=== PATIENT | female | born 1975 | race African-American/Black ===

== ENCOUNTER 2016-11-06 18:08 | Emergency (ER) | payer SELFPAY ==
[~2016-11-06] VITALS: Ht 172.7 cm; Wt 47.7 kg
[~2016-11-06 18:08] MED LIST: LACT PO; POTA10CA PO
[2016-11-06 18:10] VITALS: BP 132/74; PULSE 72; RESP 26; TEMP 98.4; O2SAT 97
[2016-11-06] MEDS ORDERED: SODIUM CHLOR 0.9% 1000 ML INJ 1,000 ML IV SCH (23:30)
[2016-11-06] MEDS ORDERED: SODIUM CHLORIDE 0.9% FLUSH 5 ML FLUSH IVF PRN (23:30)
[2016-11-06 23:46] VITALS: BP 119/67; PULSE 68; RESP 22; O2SAT 100
[2016-11-07] MEDS ORDERED: PROCHLORPERAZINE INJ 10 MG/2 ML VIAL IVS ONE
[2016-11-07] MEDS ORDERED: SODIUM CHLOR 0.9% 1000 ML INJ 1,000 ML IV ONE
[2016-11-07] MEDS ORDERED: MORPHINE SULFATE 8 MG/ML INJ IV PUSH ONE
[2016-11-07 00:14] LABS: AUTOMATED NEUTROPHIL # 11.2 TH/MM3 (1.8-7.7); BASOPHIL % 0.3 % (0.0-2.0); HEMATOCRIT 38.3 % (35.0-46.0); HEMO FLAGS DIFF FINAL; LYMPH % 5.2 % (9.0-44.0); LYMPHOCYTE # 0.6 TH/MM3 (1.0-4.8); MEAN CELL VOLUME 82.4 FL (80.0-100.0); MEAN CORPUSCULAR HEMOGLOBIN 27.3 PG (27.0-34.0); MEAN CORPUSCULAR HGB CONC 33.1 % (32.0-36.0); MONO % 1.6 % (0.0-8.0); NEUT % 92.9 % (16.0-70.0); PLATELET COUNT 346 TH/MM3 (150-450); RED BLOOD COUNT 4.64 MIL/MM3 (4.00-5.30); RED CELL DISTRIBUTION WIDTH 14.4 % (11.6-17.2); WHITE BLOOD COUNT 12.1 TH/MM3 (4.0-11.0)
[2016-11-07 00:28] LABS: ALT (GPT) 23 U/L (10-53); ANION GAP 10 MEQ/L (5-15); AST (GOT) 12 U/L (15-37); BICARBONATE 23.2 MEQ/L (21.0-32.0); BLOOD UREA NITROGEN 11 MG/DL (7-18); CHLORIDE 108 MEQ/L (98-107); GLOMERULAR FILTRATION RATE 140 ML/MIN (>89); POTASSIUM 3.7 MEQ/L (3.5-5.1); SODIUM (NA) 141 MEQ/L (136-145)
[2016-11-07 00:31] LABS: ALKALINE PHOSPHATASE 60 U/L (45-117); TOTAL BILIRUBIN ADULT 0.2 MG/DL (0.2-1.0)
[2016-11-07 02:28] LABS: BACTERIA, URINE RARE /hpf; BLOOD, URINE NEG (NEG); COMMENT (UR) CULT NOT INDICATED; CULTURE IF INDICATED CULT NOT INDICATED; GLUCOSE,URINE NEG (NEG); KETONE, URINE 150 mg/dL (NEG); MUCUS URINE MANY /lpf (OCC); NITRITE,URINE NEG (NEG); PH, URINE 6.5 (5.0-8.5); SQUAMOUS EPITHELIAL CELL URINE 14 /hpf (0-5); URINE COLOR YELLOW (YELLW/STRAW)
[2016-11-07] MEDS ORDERED: ZOFR4TAB3 SL (02:40)
--- NOTE | 2016-11-07 02:40 | PD ---
HPI Chief Complaint: Abdominal Pain Time Seen by Provider: 23:29 Travel History International Travel<30 days: No Contact w/Intl Traveler<30days: No Traveled to known affect area: No History of Present Illness HPI 41-year-old female with generalized abdominal pain. Constant and severe. A few episodes of vomiting and diarrhea have occurred. She denies fever. Onset gradual. She has suffered with the same intermittently for years. She states several of colitis on chronic basis. No VB/VD. PFSH Past Medical History Blood Disorders: No Cancer: No Cardiovascular Problems: No Endocrine: No Gastrointestinal Disorders: Yes (colitis) Gout: Yes Genitourinary: No Immune Disorder: No Musculoskeletal: No Neurologic: No Psychiatric: No Reproductive: No Respiratory: No Influenza Vaccination: No ?: Not LMP: oct 2016 : 0 Para: 0 Past Surgical History Surgical History: No Previous Surgery Social History Alcohol Use: Yes (oc) Tobacco Use: Yes (/2 PPD) Substance Use: Yes (marijuana) Allergies-Medications (Allergen,Severity, Reaction): Coded Allergies: No Known Allergies (Verified , 09/30/16) Reported Meds & Prescriptions Reported Meds & Active Scripts Active No Active Prescriptions or Reported Medications Review of Systems Except as stated in HPI: all other systems reviewed are Neg Physical Exam Narrative GENERAL: 41-year-old female thin somewhat dehydrated SKIN: Warm and dry. HEAD: Atraumatic. Normocephalic. EYES: Pupils equal and round. No scleral icterus. No injection or drainage. ENT: No nasal bleeding or discharge. Mucous membranes pink and moist. NECK: Trachea midline. No JVD. CARDIOVASCULAR: Regular rate and rhythm. No murmur appreciated. RESPIRATORY: No accessory muscle use. Clear to auscultation. Breath sounds equal bilaterally. GASTROINTESTINAL: Abdomen soft, non-tender, nondistended. Hepatic and splenic margins not palpable. MUSCULOSKELETAL: No obvious deformities. No clubbing. No cyanosis. No edema. NEUROLOGICAL: Awake and alert. No obvious cranial nerve deficits. Motor grossly within normal limits. Normal speech. PSYCHIATRIC: Appropriate mood and affect; insight and judgment normal. Data Data Last Documented VS Vital Signs Date Time Temp Pulse Resp B/P Pulse Ox O2 Delivery O2 Flow Rate FiO2 11/06/16 23:46 68 22 119/67 100 Room Air 11/06/16 18:10 98.4 Orders Complete Blood Count With Diff (11/06/16 23:30) Comprehensive Metabolic Panel (11/06/16 23:30) Lipase (11/06/16 23:30) Lactic Acid (11/06/16 23:30) Urinalysis - C+S If Indicated (11/06/16 23:30) Iv Access Insert/Monitor (11/06/16 23:30) Ecg Monitoring (11/06/16 23:30) Oximetry (11/06/16 23:30) Sodium Chlor 0.9% 1000 Ml Inj (Ns 1000 M (11/06/16 23:30) Sodium Chloride 0.9% Flush (Ns Flush) (11/06/16 23:30) Ed Urine Pregnancytest Poc (11/06/16 23:30) Morphine Inj (Morphine Inj) (11/07/16 00:00) Sodium Chlor 0.9% 1000 Ml Inj (Ns 1000 M (11/07/16 00:00) Prochlorperazine Inj (Compazine Inj) (11/07/16 00:00) Labs Laboratory Tests Test 11/06/16 11/07/16 23:55 01:55 White Blood Count 12.1 TH/MM3 Red Blood Count 4.64 MIL/MM3 Hemoglobin 12.7 GM/DL Hematocrit 38.3 % Mean Corpuscular Volume 82.4 FL Mean Corpuscular Hemoglobin 27.3 PG Mean Corpuscular Hemoglobin 33.1 % Concent Red Cell Distribution Width 14.4 % Platelet Count 346 TH/MM3 Mean Platelet Volume 6.7 FL Neutrophils (%) (Auto) 92.9 % Lymphocytes (%) (Auto) 5.2 % Monocytes (%) (Auto) 1.6 % Eosinophils (%) (Auto) 0.0 % Basophils (%) (Auto) 0.3 % Neutrophils # (Auto) 11.2 TH/MM3 Lymphocytes # (Auto) 0.6 TH/MM3 Monocytes # (Auto) 0.2 TH/MM3 Eosinophils # (Auto) 0.0 TH/MM3 Basophils # (Auto) 0.0 TH/MM3 CBC Comment DIFF FINAL Differential Comment Sodium Level 141 MEQ/L Potassium Level 3.7 MEQ/L Chloride Level 108 MEQ/L Carbon Dioxide Level 23.2 MEQ/L Anion Gap 10 MEQ/L Blood Urea Nitrogen 11 MG/DL Creatinine 0.58 MG/DL Estimat Glomerular Filtration 140 ML/MIN Rate Random Glucose 139 MG/DL Lactic Acid Level 2.0 mmol/L Calcium Level 9.5 MG/DL Total Bilirubin 0.2 MG/DL Aspartate Amino Transf 12 U/L (AST/SGOT) Alanine Aminotransferase 23 U/L (ALT/SGPT) Alkaline Phosphatase 60 U/L Total Protein 8.1 GM/DL Albumin 4.3 GM/DL Lipase 67 U/L Urine Color YELLOW Urine Turbidity HAZY Urine pH 6.5 Urine Specific [place] 1.025 Urine Protein 30 mg/dL Urine Glucose (UA) NEG mg/dL Urine Ketones 150 mg/dL Urine Occult Blood NEG Urine Nitrite NEG Urine Bilirubin NEG Urine Urobilinogen 2.0 MG/DL Urine Leukocyte Esterase NEG Urine RBC 7 /hpf Urine WBC 3 /hpf Urine Squamous Epithelial 14 /hpf Cells Urine Bacteria RARE /hpf Urine Mucus MANY /lpf Microscopic Urinalysis Comment CULT NOT INDICATED MDM Medical Decision Making Medical Screen Exam Complete: Yes Emergency Medical Condition: Yes Medical Record Reviewed: Yes Interpretation(s) CBC & BMP Diagram 11/06/16 23:55 LFTs normal Lipase normal UA no UTI LA 2.0 Differential Diagnosis Constipation, Gastritis, Acute Cholecystitis, Biliary Colic, Pancreatitis, DEGROOT , Hepatitis, Bowel Obstruction, Cystitis, Mesenteric Ischemia, AAA, Appendicitis , Renal Stone/Hydronephrosis, GERD, perforated viscous Narrative Course The patient is resting comfortably and feels better, is alert and in no distress. The patients results and examination findings were discussed. The repeat examination is unremarkable and benign. The history, exam, diagnostic testing, and current condition do not suggest any significant pathology to warrant further testing, continued ED treatment, admission, or surgical evaluation at this point. The vital signs have been stable. The patient does not have uncontrollable pain, intractable vomiting, or other significant symptoms. The patient's condition is stable and appropriate for discharge. The patient will pursue further outpatient evaluation with a primary care physician or other designated or consulting physician as indicated in the discharge instructions. The patient expressed understanding and was agreeable with this plan. Diagnosis Primary Impression: Abdominal pain Qualified Code: R10.9 - Abdominal pain, unspecified location Additional Impressions: Colitis Nausea & vomiting Qualified Code: R11.2 - Nausea and vomiting, intractability of vomiting not specified, unspecified vomiting type Dehydration Referrals: Primary Care Physician 2 days Additional Instructions: You have a choice when it comes to health care, and we are glad that you chose [facility]. Hopefully, we have met your expectations on today's visit. You are welcome to return to [facility] at any time, as we are committed to meeting the health care needs of our community. Med/Other Pt SpecificInfo: Prescription(s) given Scripts Ondansetron Odt (Zofran Odt)4 Mg Tab4 Mg SL Q8HR PRN (Nausea/Vomiting) #10 TAB Ref 0 Prov:Jf Rodríguez MD 11/07/16 Disposition: 01 DISCHARGE HOME Condition: Stable Jf Rodríguez MD Nov 07, 2016 02:40
[2016-11-07] MEDS ORDERED: DICY10 PO (02:41)
[2016-11-07 02:53] VITALS: BP 126/64
== END 2016-11-07 02:54 | disposition home or self-care (01) ==
LOC: NEPE 18:08
DX: R10.9 Unspecified abdominal pain (principal); R11.2 Nausea with vomiting, unspecified; K52.9 Noninfective gastroenteritis and colitis, unspecified; F17.210 Nicotine dependence, cigarettes, uncomplicated; E86.0 Dehydration
CPT/HCPCS: 80053; 81001; 83605; 83690; 84703; 85025; 96361; 96374; 96375; 99284; J0780; J2270; J7030

== ENCOUNTER 2016-12-08 17:07 | Emergency (ER) | payer SELFPAY ==
[~2016-12-08] VITALS: Ht 162.6 cm; Wt 50.0 kg
[~2016-12-08 17:07] MED LIST changes: +DICY10 PO; -LACT PO; -POTA10CA PO; +ZOFR4TAB3 SL
[2016-12-08 17:27] VITALS: BP 148/67; PULSE 81; RESP 18; TEMP 98.7; O2SAT 100
[2016-12-08] MEDS ORDERED: SODIUM CHLOR 0.9% 1000 ML INJ 1,000 ML IV SCH (17:29)
[2016-12-08] MEDS ORDERED: SODIUM CHLORIDE 0.9% FLUSH 5 ML FLUSH IVF PRN (17:30)
[2016-12-08] MEDS ORDERED: ONDANSETRON HCL 4 MG/2 ML VIAL IVP ONE (17:30)
[2016-12-08] MEDS ORDERED: MORPHINE SULFATE 4 MG/ML INJ IV PUSH ONE ×2 (17:30→20:00)
--- NOTE | 2016-12-08 17:50 | PD ---
HPI Chief Complaint: GI Complaint Time Seen by Provider: 17:49 Travel History International Travel<30 days: No Contact w/Intl Traveler<30days: No Traveled to known affect area: No History of Present Illness HPI Patient comes in for evaluation of abdominal pain that she awoke with this morning. Patient states she feels like her colitis. Patient is uncertain what kind of colitis she has reports she was first diagnosed back in September. Patient states that she takes probiotics every other day for this. Patient states she began having vomiting and diarrhea that is nonbilious and nonbloody today. Denies any fevers, chest pain, short of breath, vaginal discharge, urinary symptoms, , or back pain. PFSH Past Medical History Blood Disorders: No Cancer: No Cardiovascular Problems: No Endocrine: No Gastrointestinal Disorders: Yes (colitis) Gout: Yes Genitourinary: No Immune Disorder: No Musculoskeletal: No Neurologic: No Psychiatric: No Reproductive: No Respiratory: No Tetanus Vaccination: Unknown Influenza Vaccination: No ?: Not LMP: 11/16/2016 : 0 Para: 0 Past Surgical History Surgical History: No Previous Surgery Social History Alcohol Use: Yes (oc) Tobacco Use: Yes (/2 PPD) Substance Use: Yes (marijuana) Allergies-Medications (Allergen,Severity, Reaction): Coded Allergies: No Known Allergies (Verified , 09/30/16) Reported Meds & Prescriptions Reported Meds & Active Scripts Active Zofran Odt (Ondansetron Odt) 4 Mg Tab 4 Mg SL Q8HR PRN Bentyl (Dicyclomine HCl) 10 Mg Cap 10 Mg PO TID PRN Review of Systems Except as stated in HPI: all other systems reviewed are Neg Physical Exam Narrative GENERAL: Well-developed, well nourished, in no acute distress, and non-ill appearing. SKIN: Warm and dry. HEAD: Atraumatic. Normocephalic. EYES: Pupils equal and round. EOMI. No scleral icterus. No injection or drainage. ENT: No nasal bleeding or discharge. Mucous membranes pink and moist. NECK: Trachea midline. Supple. No nuclear rigidity. CARDIOVASCULAR: Regular rate and rhythm. No murmur appreciated. RESPIRATORY: No accessory muscle use. No respiratory distress. Clear to auscultation. Breath sounds equal bilaterally. GASTROINTESTINAL: Abdomen soft, patient reports tenderness throughout abdomen, nondistended. Hepatic and splenic margins not palpable. Normal bowel sounds 4. No pulsatile mass. MUSCULOSKELETAL: No obvious deformities. No clubbing. No cyanosis. No edema. Full range of motion. NEUROLOGICAL: Awake and alert. No obvious cranial nerve deficits. Motor grossly within normal limits. Normal speech. PSYCHIATRIC: Appropriate mood and affect; insight and judgment normal. Data Data Last Documented VS Vital Signs Date Time Temp Pulse Resp B/P Pulse Ox O2 Delivery O2 Flow Rate FiO2 12/08/16 22:39 87 16 119/78 100 12/08/16 19:44 Room Air 12/08/16 17:27 98.7 Orders Complete Blood Count With Diff (12/08/16 17:29) Comprehensive Metabolic Panel (12/08/16 17:29) Lipase (12/08/16 17:29) Prothrombin Time / Inr (Pt) (12/08/16 17:29) Act Partial Throm Time (Ptt) (12/08/16 17:29) Urinalysis - C+S If Indicated (12/08/16 17:29) Ct Abd/Pel W Iv Contrast(Rout) (12/08/16 17:29) Iv Access Insert/Monitor (12/08/16 17:29) Ecg Monitoring (12/08/16 17:29) Oximetry (12/08/16 17:29) NPO (12/08/16 17:29) Morphine Inj (Morphine Inj) (12/08/16 17:30) Ondansetron Inj (Zofran Inj) (12/08/16 17:30) Sodium Chlor 0.9% 1000 Ml Inj (Ns 1000 M (12/08/16 17:29) Sodium Chloride 0.9% Flush (Ns Flush) (12/08/16 17:30) Electrocardiogram (12/08/16 17:29) Ed Urine Pregnancytest Poc (12/08/16 17:29) Oral Contrast - Adult (12/08/16 17:39) Abdomen, Flat & Upright (12/08/16 ) Diatrizoate Liq ( Gastroview Liq) (12/08/16 19:40) Diatrizoate Liq ( Gastrobird Liq) (12/08/16 19:40) Morphine Inj (Morphine Inj) (12/08/16 20:00) Iohexol 350 Inj (Omnipaque 350 Inj) (12/08/16 21:00) Ondansetron Inj (Zofran Inj) (12/08/16 21:30) Sodium Chlor 0.9% 1000 Ml Inj (Ns 1000 M (12/08/16 21:30) Mandatory Outpatient Referral (12/08/16 21:30) Metoclopramide Inj (Reglan Inj) (12/08/16 21:45) Labs Laboratory Tests Test 12/08/16 12/08/16 17:45 19:05 White Blood Count 12.5 TH/MM3 Red Blood Count 4.45 MIL/MM3 Hemoglobin 12.2 GM/DL Hematocrit 37.3 % Mean Corpuscular Volume 83.7 FL Mean Corpuscular Hemoglobin 27.5 PG Mean Corpuscular Hemoglobin 32.8 % Concent Red Cell Distribution Width 14.4 % Platelet Count 313 TH/MM3 Mean Platelet Volume 7.0 FL Neutrophils (%) (Auto) 89.2 % Lymphocytes (%) (Auto) 8.2 % Monocytes (%) (Auto) 2.1 % Eosinophils (%) (Auto) 0.1 % Basophils (%) (Auto) 0.4 % Neutrophils # (Auto) 11.1 TH/MM3 Lymphocytes # (Auto) 1.0 TH/MM3 Monocytes # (Auto) 0.3 TH/MM3 Eosinophils # (Auto) 0.0 TH/MM3 Basophils # (Auto) 0.0 TH/MM3 CBC Comment DIFF FINAL Differential Comment Prothrombin Time 11.9 SEC Prothromb Time International 1.1 RATIO Ratio Activated Partial 27.1 SEC Thromboplast Time Sodium Level 142 MEQ/L Potassium Level 3.4 MEQ/L Chloride Level 110 MEQ/L Carbon Dioxide Level 21.8 MEQ/L Anion Gap 10 MEQ/L Blood Urea Nitrogen 9 MG/DL Creatinine 0.56 MG/DL Estimat Glomerular Filtration 146 ML/MIN Rate Random Glucose 135 MG/DL Calcium Level 9.0 MG/DL Total Bilirubin 0.3 MG/DL Aspartate Amino Transf 14 U/L (AST/SGOT) Alanine Aminotransferase 18 U/L (ALT/SGPT) Alkaline Phosphatase 55 U/L Total Protein 7.5 GM/DL Albumin 4.3 GM/DL Lipase 77 U/L Urine Color YELLOW Urine Turbidity CLEAR Urine pH 8.5 Urine Specific [place] 1.016 Urine Protein TRACE mg/dL Urine Glucose (UA) 70 mg/dL Urine Ketones 80 mg/dL Urine Occult Blood NEG Urine Nitrite NEG Urine Bilirubin NEG Urine Urobilinogen LESS THAN 2.0 MG/DL Urine Leukocyte Esterase TRACE Urine RBC LESS THAN 1 /hpf Urine WBC 2 /hpf Urine Squamous Epithelial 5 /hpf Cells Urine Bacteria OCC /hpf Urine Mucus FEW /lpf Microscopic Urinalysis Comment CULT NOT INDICATED MDM Medical Decision Making Medical Screen Exam Complete: Yes Emergency Medical Condition: Yes Interpretation(s) EKG reviewed by Dr. Young. Shows sinus rhythm with a ventricular rate of 66. No STEMI. Differential Diagnosis Colitis, appendicitis, UTI, gastroenteritis, diverticulitis, dehydration, other Narrative Course The patient presented with abdominal pain vomiting and diarrhea.. The patient appeared comfortable, hydrated and the abdominal exam was unremarkable and minimal to nontender to me, and without defined focal tenderness. Laboratory and radiographic evaluation revealed no significant abnormality. There was no evidence of an acute, surgical abdomen at this time. There was no clinical or radiological evidence to support bowel obstruction, cholecystitis/cholelithiasis , pancreatitis, perforation of gastric ulcer, colitis, diverticulitis, bacterial peritonitis, obstruction, volvulus, early appendicitis, or hernial incarceration or strangulation at this time. There was no evidence to support vascular pathology such as AAA, mesenteric ischemia, nor significant GIB. There was also no clinical evidence by history, exam or risk factors to suggest atypical presentation of cardiac disease such as ACS, AMI or atypical angina. No evidence to suggest genitourinary etiology as well. During the course of the ED visit the patient was given IVF, the patient noted improvement. The patient was able to tolerate fluids at discharge. Clinical picture was discussed with the patient, as well as plan of care. The patient was instructed to follow up with GI. Abdominal pain warnings were discussed with the patient. The patient is to return if worsens, pain worsens or changes, develop fever, inability to tolerate fluids with or without vomiting, unable to establish follow up or as needed. The patient agrees with plan. Patient in no obvious distress upon re-evaluation. All pertinent laboratory/ Radiology result(s) discussed with patient. Discussed patient with Dr. Young, who saw and evaluated the patient and is in agreement with plan of care and disposition. Any questions/concerns in reference to patient diagnosis/ condition discussed and clarified prior to patient's discharge. Reinforced sheer importance of close follow up with patient's primary physician or primary care clinic. Instructed patient to return to ED immediately, if symptoms return/ worsen. Pt showed understanding of above instructions. Further instructions and recommendations were detailed in discharge paperwork. Pt ambulated without difficulty out of ED at discharge. Diagnosis Primary Impression: Abdominal pain Qualified Code: R10.9 - Abdominal pain, unspecified location Additional Impression: Nausea & vomiting Qualified Code: R11.2 - Non-intractable vomiting with nausea, unspecified vomiting type Patient Instructions: General Instructions Additional Instructions: Follow-up with your primary care physician and/or GI as soon as possible for evaluation. Take all medication as prescribed. Drink plenty of non-alcoholic and non-caffeinated fluids. Return to the emergency department if symptoms get worse. Med/Other Pt SpecificInfo: Prescription(s) given Scripts Ondansetron Odt (Zofran Odt)4 Mg Tab4 Mg SL Q8HR PRN (Nausea/Vomiting) #10 TAB Ref 0 Prov:Karla Young MD 12/08/16 Disposition: 01 DISCHARGE HOME Condition: Stable Rambo Cameron Dec 08, 2016 17:50
[2016-12-08 18:24] LABS: AUTOMATED NEUTROPHIL # 11.1 TH/MM3 (1.8-7.7); BASOPHIL % 0.4 % (0.0-2.0); EOSINOPHIL % 0.1 % (0.0-4.0); HEMATOCRIT 37.3 % (35.0-46.0); HEMO FLAGS DIFF FINAL; LYMPH % 8.2 % (9.0-44.0); MEAN CELL VOLUME 83.7 FL (80.0-100.0); MEAN CORPUSCULAR HEMOGLOBIN 27.5 PG (27.0-34.0); MEAN CORPUSCULAR HGB CONC 32.8 % (32.0-36.0); MONO % 2.1 % (0.0-8.0); NEUT % 89.2 % (16.0-70.0); PLATELET COUNT 313 TH/MM3 (150-450); RED BLOOD COUNT 4.45 MIL/MM3 (4.00-5.30); RED CELL DISTRIBUTION WIDTH 14.4 % (11.6-17.2); WHITE BLOOD COUNT 12.5 TH/MM3 (4.0-11.0)
[2016-12-08 18:37] LABS: APTT (PATIENT) 27.1 SEC (24.3-30.1); INTERNATIONAL NORMALIZED RATIO 1.1 RATIO; PROTHROMBIN TIME - PATIENT 11.9 SEC (9.8-11.6)
[2016-12-08 18:48] LABS: ALT (GPT) 18 U/L (10-53); ANION GAP 10 MEQ/L (5-15); AST (GOT) 14 U/L (15-37); BICARBONATE 21.8 MEQ/L (21.0-32.0); BLOOD UREA NITROGEN 9 MG/DL (7-18); CHLORIDE 110 MEQ/L (98-107); GLOMERULAR FILTRATION RATE 146 ML/MIN (>89); POTASSIUM 3.4 MEQ/L (3.5-5.1); SODIUM (NA) 142 MEQ/L (136-145)
[2016-12-08 18:51] LABS: ALKALINE PHOSPHATASE 55 U/L (45-117); TOTAL BILIRUBIN ADULT 0.3 MG/DL (0.2-1.0)
--- NOTE | 2016-12-08 18:51 | PD ---
Physical Exam Date Seen by Provider: Dec 08, 2016 Time Seen by Provider: 18:10 Narrative I, Dr. Pena, have reviewed the advance practice practitioner's documentation and am in agreement, met with the patient face to face, made the diagnosis, and the medical decision making was done by me. *My assessment and Findings: Patient seen and evaluated with PA, please see PA for further details. Patient has been to the ER several times for colitis but has not yet obtained outpatient follow-up for this issue. She is back for similar symptoms for which she was seen last time, nausea, vomiting, abdominal pain, and diarrhea. She denies any fevers or any other symptoms. She states that the symptoms of fairly similar to her last episode of colitis. She currently rates her pain a 10 out of 10. Abdominal exam shows a diffuse abdominal tenderness without guarding or rebound. She is nondistended. Laboratory Tests Test 12/08/16 17:45 White Blood Count 12.5 TH/MM3 (4.0-11.0) Neutrophils (%) (Auto) 89.2 % (16.0-70.0) Lymphocytes (%) (Auto) 8.2 % (9.0-44.0) Neutrophils # (Auto) 11.1 TH/MM3 (1.8-7.7) Prothrombin Time 11.9 SEC (9.8-11.6) Lab work and radiological studies were ordered for the patient for further evaluation. Data Data Last Documented VS Vital Signs Date Time Temp Pulse Resp B/P Pulse Ox O2 Delivery O2 Flow Rate FiO2 12/08/16 17:27 98.7 81 18 148/67 100 Orders Complete Blood Count With Diff (12/08/16 17:29) Comprehensive Metabolic Panel (12/08/16 17:29) Lipase (12/08/16 17:29) Prothrombin Time / Inr (Pt) (12/08/16 17:29) Act Partial Throm Time (Ptt) (12/08/16 17:29) Urinalysis - C+S If Indicated (12/08/16 17:29) Ct Abd/Pel W Iv Contrast(Rout) (12/08/16 17:29) Iv Access Insert/Monitor (12/08/16 17:29) Ecg Monitoring (12/08/16 17:29) Oximetry (12/08/16 17:29) NPO (2/6/17 17:29) Morphine Inj (Morphine Inj) (12/08/16 17:30) Ondansetron Inj (Zofran Inj) (12/08/16 17:30) Sodium Chlor 0.9% 1000 Ml Inj (Ns 1000 M (12/08/16 17:29) Sodium Chloride 0.9% Flush (Ns Flush) (12/08/16 17:30) Electrocardiogram (12/08/16 17:29) Ed Urine Pregnancytest Poc (12/08/16 17:29) Oral Contrast - Adult (12/08/16 17:39) Abdomen, Flat & Upright (12/08/16 ) Labs Laboratory Tests Test 12/08/16 17:45 White Blood Count 12.5 TH/MM3 Red Blood Count 4.45 MIL/MM3 Hemoglobin 12.2 GM/DL Hematocrit 37.3 % Mean Corpuscular Volume 83.7 FL Mean Corpuscular Hemoglobin 27.5 PG Mean Corpuscular Hemoglobin 32.8 % Concent Red Cell Distribution Width 14.4 % Platelet Count 313 TH/MM3 Mean Platelet Volume 7.0 FL Neutrophils (%) (Auto) 89.2 % Lymphocytes (%) (Auto) 8.2 % Monocytes (%) (Auto) 2.1 % Eosinophils (%) (Auto) 0.1 % Basophils (%) (Auto) 0.4 % Neutrophils # (Auto) 11.1 TH/MM3 Lymphocytes # (Auto) 1.0 TH/MM3 Monocytes # (Auto) 0.3 TH/MM3 Eosinophils # (Auto) 0.0 TH/MM3 Basophils # (Auto) 0.0 TH/MM3 CBC Comment DIFF FINAL Differential Comment Prothrombin Time 11.9 SEC Prothromb Time International 1.1 RATIO Ratio Activated Partial 27.1 SEC Thromboplast Time [facility] Medical Record Reviewed: Yes Supervised Visit with WAQAS: Yes Diagnosis Primary Impression: Abdominal pain Condition: Stable Kathryn Pena MD Dec 08, 2016 18:51
[2016-12-08 19:11] VITALS: BP 142/64; PULSE 66; PULSE 72; RESP 16; O2SAT 100; O2SAT 70
[2016-12-08] MEDS ORDERED: DIATRIZOATE MEGLUM/DIATRIZOATE SOD 9 ML CUP ONE ×2 (19:40)
[2016-12-08 19:44] VITALS: O2SAT 100
[2016-12-08 19:51] LABS: BACTERIA, URINE OCC /hpf; BLOOD, URINE NEG (NEG); COMMENT (UR) CULT NOT INDICATED; CULTURE IF INDICATED CULT NOT INDICATED; GLUCOSE,URINE 70 mg/dL (NEG); KETONE, URINE 80 mg/dL (NEG); MUCUS URINE FEW /lpf (OCC); NITRITE,URINE NEG (NEG); PH, URINE 8.5 (5.0-8.5); SQUAMOUS EPITHELIAL CELL URINE 5 /hpf (0-5); URINE COLOR YELLOW (YELLW/STRAW)
--- NOTE | 2016-12-08 20:25 | RADRPT ---
EXAM DATE/TIME: 12/08/2016 19:22 [facility] COMPARISON: No previous studies available for comparison. INDICATIONS : Abdominal pain ,diarrhea and vomiting since this morning. MEDICAL HISTORY : colitis SURGICAL HISTORY : None. ENCOUNTER: Initial ACUITY: 1 day PAIN SCORE: 10/10 LOCATION: Bilateral lower abdomen FINDINGS: Supine and upright views of the abdomen were performed. The abdominal bowel gas pattern is normal. No air fluid levels are seen. No abnormal masses, calcifications, or organomegaly is seen. The visu alized lower lungs are clear. No evidence of free intraperitoneal gas. The osseous structures are u nremarkable. CONCLUSION: Normal examination for a patient of this age. Oz Vora MD on December 08, 2016 at 20:23 Board Certified Radiologist. This report was verified electronically.
[2016-12-08] MEDS ORDERED: IOHEXOL 350 MG/ML 10 ML VIAL (for RAD DIAG) IV ONE (21:00)
--- NOTE | 2016-12-08 21:17 | RADRPT ---
EXAM DATE/TIME: 12/08/2016 20:56 [facility] COMPARISON: No previous studies available for comparison. INDICATIONS : Lower abdomen pain today. IV CONTRAST: 71 cc Omnipaque 350 (iohexol) IV ORAL CONTRAST: Partial prescribed oral contrast ingested. RADIATION DOSE: 4.5 CTDIvol (mGy) MEDICAL HISTORY : colitis SURGICAL HISTORY : None. ENCOUNTER: Initial ACUITY: 1 day PAIN SCALE: 8/10 LOCATION: Bilateral lower quadrant TECHNIQUE: Volumetric scanning of the abdomen and pelvis was performed. Using automated exposure control and ad justment of the mA and/or kV according to patient size, radiation dose was kept as low as reasonably achievable to obtain optimal diagnostic quality images. FINDINGS: LOWER LUNGS: The visualized lower lungs are clear. LIVER: Homogeneous density without lesion. There is no dilation of the biliary tree. No calcified gallston es. SPLEEN: Normal size without lesion. PANCREAS: Within normal limits. KIDNEYS: Normal in size and shape. There is no mass, stone or hydronephrosis. ADRENAL GLANDS: Within normal limits. VASCULAR: There is no aortic aneurysm. BOWEL/MESENTERY: The stomach, small bowel, and colon demonstrate no acute abnormality. There is no free intraperitone al air or fluid. ABDOMINAL WALL: Within normal limits. RETROPERITONEUM: There is no lymphadenopathy. BLADDER: No wall thickening or mass. REPRODUCTIVE: Within normal limits. INGUINAL: There is no lymphadenopathy or hernia. MUSCULOSKELETAL: Within normal limits for patient age. CONCLUSION: 1. Stomach is distended. Exam is otherwise unremarkable. Oz Vora MD on December 08, 2016 at 21:13 Board Certified Radiologist. This report was verified electronically.
[2016-12-08] MEDS ORDERED: ONDANSETRON HCL 4 MG/2 ML VIAL IV PUSH ONE (21:30)
[2016-12-08] MEDS ORDERED: SODIUM CHLOR 0.9% 1000 ML INJ 1,000 ML IV ONE (21:30)
[2016-12-08] MEDS ORDERED: ZOFR4TAB3 SL (21:35)
--- NOTE | 2016-12-08 21:35 | PD ---
Physical Exam Narrative General: The patient is a well-developed thin appearing female in no acute distress Head and Neck exam: Head is normocephalic atraumatic. Mouth: Dentition unremarkable. Moist mucus membranes. Posterior oropharynx is not erythematous. No tonsillar hypertrophy. Uvula midline. Airway patent. Neck: No nuchal rigidity. Cardiovascular: Regular rate and rhythm without murmurs, gallops, or rubs. Lungs: Clear to auscultation bilaterally. No wheezes, rhonchi, or rales. Abdomen: Soft, without tenderness to palpation in all 4 quadrants of the abdomen. No guarding, rebound, or rigidity. Normal bowel sounds are audible Extremities: No clubbing, cyanosis, or edema. 2+ pulses in all 4 extremities. Neurologic Exam: Grossly nonfocal Skin Exam: No rash noted. Intact skin that is warm and dry. Data Data Last Documented VS Vital Signs Date Time Temp Pulse Resp B/P Pulse Ox O2 Delivery O2 Flow Rate FiO2 12/08/16 19:44 100 Room Air 12/08/16 19:11 72 16 142/64 12/08/16 17:27 98.7 Orders Complete Blood Count With Diff (12/08/16 17:29) Comprehensive Metabolic Panel (12/08/16 17:29) Lipase (12/08/16 17:29) Prothrombin Time / Inr (Pt) (12/08/16 17:29) Act Partial Throm Time (Ptt) (12/08/16 17:29) Urinalysis - C+S If Indicated (12/08/16 17:29) Ct Abd/Pel W Iv Contrast(Rout) (12/08/16 17:29) Iv Access Insert/Monitor (12/08/16 17:29) Ecg Monitoring (12/08/16 17:29) Oximetry (12/08/16 17:29) NPO (12/08/16 17:29) Morphine Inj (Morphine Inj) (12/08/16 17:30) Ondansetron Inj (Zofran Inj) (12/08/16 17:30) Sodium Chlor 0.9% 1000 Ml Inj (Ns 1000 M (12/08/16 17:29) Sodium Chloride 0.9% Flush (Ns Flush) (12/08/16 17:30) Electrocardiogram (12/08/16 17:29) Ed Urine Pregnancytest Poc (12/08/16 17:29) Oral Contrast - Adult (12/08/16 17:39) Abdomen, Flat & Upright (12/08/16 ) Diatrizoate Liq ( Gastroview Liq) (12/08/16 19:40) Diatrizoate Liq (Md Parks Liq) (12/08/16 19:40) Morphine Inj (Morphine Inj) (12/08/16 20:00) Iohexol 350 Inj (Omnipaque 350 Inj) (12/08/16 21:00) Ondansetron Inj (Zofran Inj) (12/08/16 21:30) Sodium Chlor 0.9% 1000 Ml Inj (Ns 1000 M (12/08/16 21:30) Mandatory Outpatient Referral (12/08/16 21:30) Metoclopramide Inj (Reglan Inj) (12/08/16 21:45) Labs Laboratory Tests Test 12/08/16 12/08/16 17:45 19:05 White Blood Count 12.5 TH/MM3 Red Blood Count 4.45 MIL/MM3 Hemoglobin 12.2 GM/DL Hematocrit 37.3 % Mean Corpuscular Volume 83.7 FL Mean Corpuscular Hemoglobin 27.5 PG Mean Corpuscular Hemoglobin 32.8 % Concent Red Cell Distribution Width 14.4 % Platelet Count 313 TH/MM3 Mean Platelet Volume 7.0 FL Neutrophils (%) (Auto) 89.2 % Lymphocytes (%) (Auto) 8.2 % Monocytes (%) (Auto) 2.1 % Eosinophils (%) (Auto) 0.1 % Basophils (%) (Auto) 0.4 % Neutrophils # (Auto) 11.1 TH/MM3 Lymphocytes # (Auto) 1.0 TH/MM3 Monocytes # (Auto) 0.3 TH/MM3 Eosinophils # (Auto) 0.0 TH/MM3 Basophils # (Auto) 0.0 TH/MM3 CBC Comment DIFF FINAL Differential Comment Prothrombin Time 11.9 SEC Prothromb Time International 1.1 RATIO Ratio Activated Partial 27.1 SEC Thromboplast Time Sodium Level 142 MEQ/L Potassium Level 3.4 MEQ/L Chloride Level 110 MEQ/L Carbon Dioxide Level 21.8 MEQ/L Anion Gap 10 MEQ/L Blood Urea Nitrogen 9 MG/DL Creatinine 0.56 MG/DL Estimat Glomerular Filtration 146 ML/MIN Rate Random Glucose 135 MG/DL Calcium Level 9.0 MG/DL Total Bilirubin 0.3 MG/DL Aspartate Amino Transf 14 U/L (AST/SGOT) Alanine Aminotransferase 18 U/L (ALT/SGPT) Alkaline Phosphatase 55 U/L Total Protein 7.5 GM/DL Albumin 4.3 GM/DL Lipase 77 U/L Urine Color YELLOW Urine Turbidity CLEAR Urine pH 8.5 Urine Specific [place] 1.016 Urine Protein TRACE mg/dL Urine Glucose (UA) 70 mg/dL Urine Ketones 80 mg/dL Urine Occult Blood NEG Urine Nitrite NEG Urine Bilirubin NEG Urine Urobilinogen LESS THAN 2.0 MG/DL Urine Leukocyte Esterase TRACE Urine RBC LESS THAN 1 /hpf Urine WBC 2 /hpf Urine Squamous Epithelial 5 /hpf Cells Urine Bacteria OCC /hpf Urine Mucus FEW /lpf Microscopic Urinalysis Comment CULT NOT INDICATED MDM Medical Record Reviewed: Yes Supervised Visit with WAQAS: Yes Interpretation(s) Last Impressions Abdomen/Pelvis CT 12/08/16 1729 Signed Impressions: Service Date/Time: Thursday, December 08, 2016 20:56 - CONCLUSION: 1. Stomach is distended. Exam is otherwise unremarkable. Oz Vora MD Abdomen X-Ray 12/08/16 0000 Signed Impressions: Service Date/Time: Thursday, December 08, 2016 19:22 - CONCLUSION: Normal examination for a patient of this age. Oz Vora MD Differential Diagnosis Gastroenteritis, versus colitis, versus gastroparesis Narrative Course I, Dr. Young, have reviewed the advance practice practitioner's documentation and am in agreement, met with the patient face to face, made the diagnosis, and the medical decision making was done by me. *My assessment and Findings: The patient is a 41-year-old female who presents to [facility] emergency Department with a history of nausea and vomiting and diarrhea. The patient was initially evaluated by Dr. Perry. The patient's case was checked out to me at the conclusion of her shift to review with Rambo, the physician public health assistant, who initially evaluated the patient. Please see his complete history and physical. The patient has a history of being diagnosed with colitis during an admission in September 2016. The patient is uninsured and has had difficulty following up with any physicians as an outpatient. Laboratory studies and a CT scan of the abdomen and pelvis was ordered on this patient. The patient's laboratory studies were remarkable for an elevated white count at 12, otherwise CMP is unremarkable, urinalysis showed 80 ketones consistent with dehydration. The patient was given IV fluids, pain medication and nausea medication while in the emergency department. CT scan of the abdomen and pelvis showed gastric distention, no other acute abnormality. The patient will be given a trial of Reglan. The patient will be discharged home after hydration. The patient will be given outpatient mandatory follow-up with a inspector aide regarding her GI symptoms. The patient was also instructed regarding the importance of following up with patient assistance for assistance with following up with a primary care physician. Diagnosis Primary Impression: Nausea, vomiting, and diarrhea Condition: Stable Karla Young MD Dec 08, 2016 21:35
[2016-12-08] MEDS ORDERED: METOCLOPRAMIDE HCL 10 MG/2 ML VIAL IV PUSH ONE (21:45)
[2016-12-08 22:39] VITALS: BP 119/78
[2016-12-09] MEDS ORDERED: PROM1SUP7 RECTAL (16:33)
[2016-12-09] MEDS ORDERED: DICY10 PO (16:33)
--- NOTE | 2016-12-09 17:38 | EKG ---
Date Performed: 12/08/2016 Time Performed: 19:42:59 PTAGE: 41 years EKG: Sinus rhythm WITH MARKED SINUS ARRHYTHMIA Since previous tracing, no significant change noted BORDERLINE ECG PREVIOUS TRACING : 09/30/2016 16.58 DOCTOR: Alexandre Pedersen Interpretating Date/Time 12/09/2016 17:37:31
== END 2016-12-08 22:45 | disposition home or self-care (01) ==
LOC: NEPC 17:07
DX: R11.2 Nausea with vomiting, unspecified (principal); R19.7 Diarrhea, unspecified; E86.0 Dehydration
CPT/HCPCS: 74020; 74177; 80053; 81001; 83690; 84703; 85025; 85610; 85730; 93005; 96361; 96374; 96375; 96376; 99284; J2270; J2405; J2765; J7030; Q9963; Q9967

== ENCOUNTER 2016-12-09 14:32 | Emergency (ER) | payer SELFPAY ==
[~2016-12-09] VITALS: Ht 167.6 cm; Wt 60.0 kg
[2016-12-09 14:34] VITALS: BP 132/80; PULSE 77; RESP 16; TEMP 98.7; O2SAT 99
[2016-12-09] MEDS ORDERED: PROCHLORPERAZINE INJ 10 MG/2 ML VIAL IVS ONE (15:00)
[2016-12-09] MEDS ORDERED: diphenhydrAMINE HCL 50 MG/ML VIAL IV PUSH ONE (15:00)
--- NOTE | 2016-12-09 15:20 | PD ---
HPI Chief Complaint: GI Complaint Time Seen by Provider: 15:10 Travel History International Travel<30 days: No Contact w/Intl Traveler<30days: No Traveled to known affect area: No History of Present Illness HPI 41-year-old female with history of chronic abdominal pain presents to the emergency room for evaluation of pain, nausea, vomiting for the past several days. Patient was seen in the emergency room yesterday for the same and had a full workup that was completely negative. She was discharged with prescription for Zofran. Patient has not had her prescription filled. States when she woke up this morning her pain reoccurred and is worse than yesterday. It is diffuse abdominal pain. States she has not had any episodes of diarrhea today because she has not had anything to eat. Denies any other significant symptoms. PFSH Past Medical History Blood Disorders: No Cancer: No Cardiovascular Problems: No Endocrine: No Gastrointestinal Disorders: Yes (colitis) Gout: Yes Genitourinary: No Immune Disorder: No Musculoskeletal: No Neurologic: No Psychiatric: No Reproductive: No Respiratory: No ?: Not : 0 Para: 0 Past Surgical History Surgical History: No Previous Surgery Social History Alcohol Use: Yes (oc) Tobacco Use: Yes (1/2 PPD) Substance Use: Yes (marijuana) Allergies-Medications (Allergen,Severity, Reaction): Coded Allergies: No Known Allergies (Verified , 09/30/16) Reported Meds & Prescriptions Reported Meds & Active Scripts Active Phenergan Supp (Promethazine HCl) 25 Mg Supp 25 Mg RECTAL Q6HR PRN Bentyl (Dicyclomine HCl) 10 Mg Cap 10 Mg PO TID PRN Zofran Odt (Ondansetron Odt) 4 Mg Tab 4 Mg SL Q8HR PRN Review of Systems Except as stated in HPI: all other systems reviewed are Neg Physical Exam Narrative GENERAL: Well-nourished, well-developed female in no acute distress. Afebrile. SKIN: Warm and dry. Diaphoretic. HEAD: Normocephalic. EYES: No scleral icterus. No injection or drainage. NECK: Supple, trachea midline. No JVD or lymphadenopathy. CARDIOVASCULAR: Regular rate and rhythm without murmurs, gallops, or rubs. RESPIRATORY: Breath sounds equal bilaterally. No accessory muscle use. GASTROINTESTINAL: Abdomen soft, nondistended. Diffusely tender to light and deep palpation. No rebound tenderness. Data Data Last Documented VS Vital Signs Date Time Temp Pulse Resp B/P Pulse Ox O2 Delivery O2 Flow Rate FiO2 12/09/16 14:34 98.7 77 16 132/80 99 Orders Prochlorperazine Inj (Compazine Inj) (12/09/16 15:00) Diphenhydramine Inj (Benadryl Inj) (12/09/16 15:00) Complete Blood Count With Diff (12/09/16 15:10) Basic Metabolic Panel (Bmp) (12/09/16 15:10) Labs Laboratory Tests Test 12/09/16 15:15 White Blood Count 11.3 TH/MM3 Red Blood Count 4.32 MIL/MM3 Hemoglobin 11.8 GM/DL Hematocrit 35.9 % Mean Corpuscular Volume 83.1 FL Mean Corpuscular Hemoglobin 27.3 PG Mean Corpuscular Hemoglobin 32.8 % Concent Red Cell Distribution Width 14.4 % Platelet Count 344 TH/MM3 Mean Platelet Volume 7.0 FL Neutrophils (%) (Auto) 82.3 % Lymphocytes (%) (Auto) 12.2 % Monocytes (%) (Auto) 4.8 % Eosinophils (%) (Auto) 0.1 % Basophils (%) (Auto) 0.6 % Neutrophils # (Auto) 9.3 TH/MM3 Lymphocytes # (Auto) 1.4 TH/MM3 Monocytes # (Auto) 0.5 TH/MM3 Eosinophils # (Auto) 0.0 TH/MM3 Basophils # (Auto) 0.1 TH/MM3 CBC Comment DIFF FINAL Differential Comment Sodium Level 141 MEQ/L Potassium Level 3.3 MEQ/L Chloride Level 108 MEQ/L Carbon Dioxide Level 23.1 MEQ/L Anion Gap 10 MEQ/L Blood Urea Nitrogen 5 MG/DL Creatinine 0.66 MG/DL Estimat Glomerular Filtration 121 ML/MIN Rate Random Glucose 107 MG/DL Calcium Level 8.6 MG/DL MDM Medical Decision Making Medical Screen Exam Complete: Yes Emergency Medical Condition: Yes Medical Record Reviewed: Yes Differential Diagnosis Chronic abdominal pain versus dehydration versus colitis versus cyclic vomiting syndrome Narrative Course 41-year-old female presents to the emergency room via ambulance for evaluation of abdominal pain, nausea, and vomiting for the past several hours. Patient woke up with symptoms. She had same symptoms yesterday and came to the emergency room at which time a full workup was initiated. Labs were negative other than leukocytosis of 12.5. CT yesterday showed distended stomach, otherwise unremarkable. Upon discharge yesterday, patient was well and in no acute distress. Upon arrival today, she is writhing in pain and immediately requests pain medication. EFORSCE negative. Vital signs stable. Patient was given IV Compazine and Benadryl with significant relief in symptoms. She is now sleeping, resting comfortably and quietly in no distress and no longer writhing. CBC is improved from yesterday with leukocytosis of 11.3. BMP is unremarkable. Mandatory outpatient referral for gastrology was placed yesterday. No indications for admission at this time. On discharge, patient is ambulatory without distress. In addition to prescribed Zofran yesterday, she will be prescribed Bentyl and Phenergan suppositories. Patient told to follow up with a functional director or return for worsening symptoms. She understands and agrees to plan. Diagnosis Primary Impression: Abdominal pain Qualified Code: R10.84 - Generalized abdominal pain Additional Impression: Nausea & vomiting Qualified Code: R11.2 - Non-intractable vomiting with nausea, unspecified vomiting type Referrals: Academic Director Primary Care Physician Patient Instructions: Abdominal Pain (ED), General Instructions Additional Instructions: Rest and drink plenty of fluids such as electrolyte infused sports drinks. Take prescribed Zofran as directed, as needed for nausea and vomiting. If Zofran does not help, take Phenergan. Take Bentyl as directed, as needed for abdominal cramping. Follow-up with functional director. A mandatory outpatient referral has been placed. Return to the emergency room for worsening symptoms. Med/Other Pt SpecificInfo: Prescription(s) given Scripts Promethazine Supp (Phenergan Supp)25 Mg Supp25 Mg RECTAL Q6HR PRN (NAUSEA OR VOMITING) #10 SUPP Ref 0 Prov:Kathryn Pena MD 12/09/16 Dicyclomine (Bentyl)10 Mg Cap10 Mg PO TID PRN (Bowel Management) #15 CAP Ref 0 Prov:Kathryn Pena MD 12/09/16 Disposition: 01 DISCHARGE HOME Condition: Stable Viktoria Hugo Dec 09, 2016 15:20
[2016-12-09 15:43] LABS: AUTOMATED NEUTROPHIL # 9.3 TH/MM3 (1.8-7.7); BASOPHIL # 0.1 TH/MM3 (0-0.2); BASOPHIL % 0.6 % (0.0-2.0); EOSINOPHIL % 0.1 % (0.0-4.0); HEMATOCRIT 35.9 % (35.0-46.0); HEMO FLAGS DIFF FINAL; LYMPH % 12.2 % (9.0-44.0); LYMPHOCYTE # 1.4 TH/MM3 (1.0-4.8); MEAN CELL VOLUME 83.1 FL (80.0-100.0); MEAN CORPUSCULAR HEMOGLOBIN 27.3 PG (27.0-34.0); MEAN CORPUSCULAR HGB CONC 32.8 % (32.0-36.0); MONO % 4.8 % (0.0-8.0); NEUT % 82.3 % (16.0-70.0); PLATELET COUNT 344 TH/MM3 (150-450); RED BLOOD COUNT 4.32 MIL/MM3 (4.00-5.30); RED CELL DISTRIBUTION WIDTH 14.4 % (11.6-17.2); WHITE BLOOD COUNT 11.3 TH/MM3 (4.0-11.0)
[2016-12-09 16:09] LABS: BICARBONATE 23.1 MEQ/L (21.0-32.0); POTASSIUM 3.3 MEQ/L (3.5-5.1)
[2016-12-09] MEDS ORDERED: PROM1SUP7 RECTAL (16:33)
[2016-12-09] MEDS ORDERED: DICY10 PO (16:33)
== END 2016-12-09 17:11 | disposition home or self-care (01) ==
LOC: NEDAMB 14:32
DX: R10.84 Generalized abdominal pain (principal); R11.2 Nausea with vomiting, unspecified
CPT/HCPCS: 80048; 85025; 96374; 96375; 99284; J0780; J1200

== ENCOUNTER 2016-12-23 19:24 | Inpatient (IN) | payer SELFPAY ==
[~2016-12-23] VITALS: Ht 162.6 cm; Wt 48.1 kg
[~2016-12-23 19:24] MED LIST changes: +PROM1SUP7 RECTAL
[2016-12-23 19:26] VITALS: BP 136/85; PULSE 99; RESP 24; TEMP 98.7; O2SAT 100
[2016-12-23 19:40] VITALS: BP 136/81; PULSE 104; RESP 20; TEMP 98.2; O2SAT 100
[2016-12-23] MEDS ORDERED: SODIUM CHLOR 0.9% 1000 ML INJ 1,000 ML IV SCH ×2 (19:49→22:50)
--- NOTE | 2016-12-23 19:51 | PD ---
HPI Chief Complaint: Abdominal Pain Time Seen by Provider: 19:51 Travel History International Travel<30 days: No Contact w/Intl Traveler<30days: No Traveled to known affect area: No History of Present Illness HPI 41-year-old female with a history of chronic abdominal pain presents to the emergency department for evaluation of abdominal pain, nausea and vomiting. Patient states that for the past 3 days she has had constant worsening abdominal pain located in the periumbilical region. There are no alleviating factors. Aggravated with movement. States that today she began to have nonbloody nonbilious emesis and has been unable to keep any food or fluids down. States that she used a nausea suppository she was prescribed but it did not help with her symptoms. She states that she was told several months ago that she had colitis but did not follow-up with a classification officer as an outpatient. States that she has had subjective fevers and sweats for the past couple of days. She denies any chest pain, shortness of breath, diarrhea, bloody stool, dysuria. Last bowel movement was 3 days ago. Denies any prior abdominal surgeries. Denies . No other complaints. PFSH Past Medical History Blood Disorders: No Cancer: No Cardiovascular Problems: No Endocrine: No Gastrointestinal Disorders: Yes (colitis NEWLY DX) Gout: Yes Genitourinary: No Immune Disorder: No Musculoskeletal: No Neurologic: No Psychiatric: No Reproductive: No Respiratory: No Tetanus Vaccination: < 5 Years Influenza Vaccination: No ?: Unknown LMP: 12/09/16 : 0 Para: 0 Past Surgical History Surgical History: No Previous Surgery Other Surgery: No Social History Alcohol Use: Yes (oc) Tobacco Use: No Substance Use: Yes (marijuana) Allergies-Medications (Allergen,Severity, Reaction): Coded Allergies: No Known Allergies (Verified , 12/23/16) Reported Meds & Prescriptions Reported Meds & Active Scripts Active Review of Systems Except as stated in HPI: all other systems reviewed are Neg Physical Exam Narrative GENERAL: Well-nourished and well-developed female patient in moderate amount of pain but no acute distress. SKIN: Warm and dry. HEAD: Normocephalic and atraumatic. EYES: No injection, drainage, or hyphema noted. PERRLA. EOMI. ENT: No nasal drainage noted. Oropharynx is clear. NECK: Supple and the trachea is midline. CARDIOVASCULAR: Regular rate and rhythm. RESPIRATORY: Breath sounds are equal bilaterally with no accessory muscle use, wheezing, rhonchi, or crackles. GASTROINTESTINAL: Generalized tenderness to palpation with voluntary guarding. Abdomen is soft and nondistended. MUSCULOSKELETAL: No obvious deformities, swelling, cyanosis, or ecchymosis is present throughout the upper and lower extremities. Patient has full range of motion without any signs of neurovascular compromise. NEUROLOGICAL: Awake, alert, and oriented. Normal speech and gait. Cranial nerves are grossly intact. Data Data Last Documented VS Vital Signs Date Time Temp Pulse Resp B/P Pulse Ox O2 Delivery O2 Flow Rate FiO2 12/23/16 21:54 16 12/23/16 20:06 99 Room Air 12/23/16 19:40 98.2 104 136/81 Orders Complete Blood Count With Diff (12/23/16 19:49) Comprehensive Metabolic Panel (12/23/16 19:49) Lipase (12/23/16 19:49) Prothrombin Time / Inr (Pt) (12/23/16 19:49) Act Partial Throm Time (Ptt) (12/23/16 19:49) Urinalysis - C+S If Indicated (12/23/16 19:49) Ct Abd/Pel W Iv Contrast(Rout) (12/23/16 19:49) Iv Access Insert/Monitor (12/23/16 19:49) Ecg Monitoring (12/23/16 19:49) Oximetry (12/23/16 19:49) Morphine Inj (Morphine Inj) (12/23/16 20:00) Ondansetron Inj (Zofran Inj) (12/23/16 20:00) Sodium Chlor 0.9% 1000 Ml Inj (Ns 1000 M (12/23/16 19:49) Sodium Chloride 0.9% Flush (Ns Flush) (12/23/16 20:00) Ed Urine Pregnancytest Poc (12/23/16 19:49) Oral Contrast - Adult (12/23/16 19:53) Diatrizoate Liq (Md Parks Liq) (12/23/16 20:09) Diatrizoate Liq (Md Parks Liq) (12/23/16 20:17) Lactic Acid Sepsis Protocol (12/23/16 21:06) Blood Culture (12/23/16 21:06) Piperacil-Tazo 4.5 Gm Premix (Zosyn 4.5 (12/23/16 21:06) Iohexol 350 Inj (Omnipaque 350 Inj) (12/23/16 22:45) Sodium Chlor 0.9% 1000 Ml Inj (Ns 1000 M (12/23/16 22:50) Labs Laboratory Tests Test 12/23/16 12/23/16 19:53 21:45 White Blood Count 19.0 TH/MM3 Red Blood Count 4.73 MIL/MM3 Hemoglobin 12.7 GM/DL Hematocrit 38.3 % Mean Corpuscular Volume 80.9 FL Mean Corpuscular Hemoglobin 26.9 PG Mean Corpuscular Hemoglobin 33.3 % Concent Red Cell Distribution Width 14.0 % Platelet Count 450 TH/MM3 Mean Platelet Volume 6.7 FL Neutrophils (%) (Auto) 93.7 % Lymphocytes (%) (Auto) 3.0 % Monocytes (%) (Auto) 3.0 % Eosinophils (%) (Auto) 0.0 % Basophils (%) (Auto) 0.3 % Neutrophils # (Auto) 17.8 TH/MM3 Lymphocytes # (Auto) 0.6 TH/MM3 Monocytes # (Auto) 0.6 TH/MM3 Eosinophils # (Auto) 0.0 TH/MM3 Basophils # (Auto) 0.1 TH/MM3 CBC Comment AUTO DIFF Differential Total Cells 100 Counted Neutrophils % (Manual) 84 % Band Neutrophils % 8 % Lymphocytes % 3 % Monocytes % 5 % Neutrophils # (Manual) 17.5 TH/MM3 Differential Comment FINAL DIFF MANUAL Platelet Estimate NORMAL Platelet Morphology Comment NORMAL Red Cell Morphology Comment NORMAL Prothrombin Time 12.0 SEC Prothromb Time International 1.1 RATIO Ratio Activated Partial 27.7 SEC Thromboplast Time Sodium Level 138 MEQ/L Potassium Level 3.2 MEQ/L Chloride Level 98 MEQ/L Carbon Dioxide Level 26.9 MEQ/L Anion Gap 13 MEQ/L Blood Urea Nitrogen 9 MG/DL Creatinine 0.70 MG/DL Estimat Glomerular Filtration 113 ML/MIN Rate Random Glucose 179 MG/DL Calcium Level 9.2 MG/DL Total Bilirubin 0.6 MG/DL Aspartate Amino Transf 6 U/L (AST/SGOT) Alanine Aminotransferase 11 U/L (ALT/SGPT) Alkaline Phosphatase 87 U/L Total Protein 8.1 GM/DL Albumin 3.7 GM/DL Lipase 45 U/L Lactic Acid Level 2.1 mmol/L MDM Medical Decision Making Medical Screen Exam Complete: Yes Emergency Medical Condition: Yes Differential Diagnosis Colitis versus diverticulitis versus appendicitis versus PUD versus chronic abdominal pain Narrative Course 41-year-old female presents to the emergency department for evaluation of abdominal pain, nausea and vomiting. Patient is afebrile. She didn't initially slightly tachycardic but otherwise vital signs are within normal limits. She is writhing around in bed complaining of pain in her abdomen. She' s been here multiple times over the past several months, received 4 CTs of the abdomen and pelvis only one of which showed mild colitis, the others were negative. She's had IV contrast but no by mouth contrast in the past. Therefore we will do another CT scan today with oral contrast as well as IV contrast due to the severity of the patient's symptoms. She is administered IV fluids, Zofran and morphine 4 mg. CBC shows an elevated white blood cell count of 19 with 84% neutrophils and 8% band neutrophils. CMP shows mild hypokalemia with a potassium of 3.2. Lactic acid is elevated at 2.1. Coags are unremarkable. Patient is administered Zosyn 4.5 g IV and another liter of fluid. Patient reassessed after receiving pain medication and is resting comfortably. She'll be signed out to my attending physician Dr. Young who will assume care and disposition of the patient pending her CT scan. Sepsis Criteria SIRS Criteria (2 or more): Heart rate over 90, WBC > 86076, < 4000 or > 10% bands Amber Pulido Dec 23, 2016 19:51
[2016-12-23] MEDS ORDERED: MORPHINE SULFATE 4 MG/ML INJ IV PUSH ONE (20:00)
[2016-12-23] MEDS ORDERED: ONDANSETRON HCL 4 MG/2 ML VIAL IVP ONE (20:00)
[2016-12-23] MEDS ORDERED: SODIUM CHLORIDE 0.9% FLUSH 5 ML FLUSH IVF PRN (20:00)
[2016-12-23 20:06] VITALS: RESP 20; O2SAT 99
[2016-12-23] MEDS ORDERED: DIATRIZOATE MEGLUM/DIATRIZOATE SOD 9 ML CUP ONE ×2 (20:09→20:17)
[2016-12-23 20:15] LABS: AUTOMATED NEUTROPHIL # 17.8 TH/MM3 (1.8-7.7); BASOPHIL # 0.1 TH/MM3 (0-0.2); BASOPHIL % 0.3 % (0.0-2.0); HEMATOCRIT 38.3 % (35.0-46.0); LYMPHOCYTE # 0.6 TH/MM3 (1.0-4.8); MEAN CELL VOLUME 80.9 FL (80.0-100.0); MEAN CORPUSCULAR HEMOGLOBIN 26.9 PG (27.0-34.0); MEAN CORPUSCULAR HGB CONC 33.3 % (32.0-36.0); NEUT % 93.7 % (16.0-70.0); PLATELET COUNT 450 TH/MM3 (150-450); RED BLOOD COUNT 4.73 MIL/MM3 (4.00-5.30)
[2016-12-23 20:20] LABS: HEMO FLAGS AUTO DIFF
[2016-12-23 20:25] LABS: APTT (PATIENT) 27.7 SEC (24.3-30.1); INTERNATIONAL NORMALIZED RATIO 1.1 RATIO
[2016-12-23 20:45] LABS: BANDS 8 % (0-6); NEUTROPHIL # MANUAL DIFF 17.5 TH/MM3 (1.8-7.7); POLYS (SEG NEUTROPHILS) 84 % (16-70); WBC DIFF SAMPLE 100
[2016-12-23 20:46] LABS: PLATELET ESTIMATE SMEAR NORMAL (NORMAL); PLATELET MORPHOLOGY NORMAL (NORMAL); SCAN/DIFF FINAL DIFF MANUAL
[2016-12-23] MEDS ORDERED: PIPERACIL-TAZO 4.5 GM PREMIX 100 ML IV STA (21:06)
[2016-12-23 21:45] LABS: ANION GAP 13 MEQ/L (5-15); AST (GOT) 6 U/L (15-37); BICARBONATE 26.9 MEQ/L (21.0-32.0); BLOOD UREA NITROGEN 9 MG/DL (7-18); CHLORIDE 98 MEQ/L (98-107); GLOMERULAR FILTRATION RATE 113 ML/MIN (>89); POTASSIUM 3.2 MEQ/L (3.5-5.1); SODIUM (NA) 138 MEQ/L (136-145)
[2016-12-23 21:50] LABS: ALKALINE PHOSPHATASE 87 U/L (45-117); ALT (GPT) 11 U/L (10-53); TOTAL BILIRUBIN ADULT 0.6 MG/DL (0.2-1.0)
[2016-12-23] MEDS ORDERED: IOHEXOL 350 MG/ML 10 ML VIAL (for RAD DIAG) IV ONE (22:45)
--- NOTE | 2016-12-23 22:58 | RADRPT ---
EXAM DATE/TIME: 12/23/2016 22:32 [facility] COMPARISON: CT ABDOMEN & PELVIS W CONTRAST, December 08, 2016, 20:56. INDICATIONS : Diffuse abdominal pain with vomiting. IV CONTRAST: 93 cc Omnipaque 350 (iohexol) IV ORAL CONTRAST: Prescribed oral contrast ingested. RADIATION DOSE: 9.96 CTDIvol (mGy) MEDICAL HISTORY : Colitis. SURGICAL HISTORY : None. ENCOUNTER: Initial ACUITY: 1 day PAIN SCALE: 10/10 LOCATION: Abdomen/pelvis TECHNIQUE: Volumetric scanning of the abdomen and pelvis was performed. Using automated exposure control and ad justment of the mA and/or kV according to patient size, radiation dose was kept as low as reasonably achievable to obtain optimal diagnostic quality images. FINDINGS: LOWER LUNGS: The visualized lower lungs are clear. LIVER: Subcentimeter cyst left hepatic lobe. Liver otherwise normal. CT appearance of the gallbladder within normal limits. SPLEEN: Normal size without lesion. PANCREAS: Within normal limits. KIDNEYS: Normal in size and shape. There is no mass, stone or hydronephrosis. ADRENAL GLANDS: Within normal limits. VASCULAR: There is no aortic aneurysm. BOWEL/MESENTERY: There is mild wall thickening of essentially the entire colon. Small ascites noted. No free air.. ABDOMINAL WALL: Within normal limits. RETROPERITONEUM: There is no lymphadenopathy. BLADDER: No wall thickening or mass. REPRODUCTIVE: Large complex fluid collection has developed in the left adnexal region measuring about 4.4 x 5.5 x 4 .2 cm in size and is probably a recently hemorrhagic pelvic cyst. A tubo-ovarian or perisigmoid absce ss is considered less likely.. I don't see any acute blood products. There is a small, low attenuatio n free fluid in the pelvic cul-de-sac and left adnexal region. INGUINAL: There is no lymphadenopathy or hernia. MUSCULOSKELETAL: Within normal limits for patient age. CONCLUSION: 1. Mild, generalized colitis. No bowel obstruction. 2. Complex fluid collection has developed in the left pelvic cavity that I believe is most likely a r ecently hemorrhagic left ovarian cyst. An abscess is considered less likely. 3. Small ascites/free fluid. Benigno Luo MD on December 23, 2016 at 22:50 Board Certified Radiologist. This report was verified electronically.
--- NOTE | 2016-12-23 23:19 | PD ---
Data Data Last Documented VS Vital Signs Date Time Temp Pulse Resp B/P Pulse Ox O2 Delivery O2 Flow Rate FiO2 12/23/16 21:54 16 12/23/16 20:06 99 Room Air 12/23/16 19:40 98.2 104 136/81 Orders Complete Blood Count With Diff (12/23/16 19:49) Comprehensive Metabolic Panel (12/23/16 19:49) Lipase (12/23/16 19:49) Prothrombin Time / Inr (Pt) (12/23/16 19:49) Act Partial Throm Time (Ptt) (12/23/16 19:49) Urinalysis - C+S If Indicated (12/23/16 19:49) Ct Abd/Pel W Iv Contrast(Rout) (12/23/16 19:49) Iv Access Insert/Monitor (12/23/16 19:49) Ecg Monitoring (12/23/16 19:49) Oximetry (12/23/16 19:49) Morphine Inj (Morphine Inj) (12/23/16 20:00) Ondansetron Inj (Zofran Inj) (12/23/16 20:00) Sodium Chlor 0.9% 1000 Ml Inj (Ns 1000 M (12/23/16 19:49) Sodium Chloride 0.9% Flush (Ns Flush) (12/23/16 20:00) Ed Urine Pregnancytest Poc (12/23/16 19:49) Oral Contrast - Adult (12/23/16 19:53) Diatrizoate Liq (Md Parks Liq) (12/23/16 20:09) Diatrizoate Liq (Md Parks Liq) (12/23/16 20:17) Lactic Acid Sepsis Protocol (12/23/16 21:06) Blood Culture (12/23/16 21:06) Piperacil-Tazo 4.5 Gm Premix (Zosyn 4.5 (12/23/16 21:06) Iohexol 350 Inj (Omnipaque 350 Inj) (12/23/16 22:45) Sodium Chlor 0.9% 1000 Ml Inj (Ns 1000 M (12/23/16 22:50) Admit Order (Ed Use Only) (12/24/16 00:12) Labs Laboratory Tests Test 12/23/16 12/23/16 19:53 21:45 White Blood Count 19.0 TH/MM3 Red Blood Count 4.73 MIL/MM3 Hemoglobin 12.7 GM/DL Hematocrit 38.3 % Mean Corpuscular Volume 80.9 FL Mean Corpuscular Hemoglobin 26.9 PG Mean Corpuscular Hemoglobin 33.3 % Concent Red Cell Distribution Width 14.0 % Platelet Count 450 TH/MM3 Mean Platelet Volume 6.7 FL Neutrophils (%) (Auto) 93.7 % Lymphocytes (%) (Auto) 3.0 % Monocytes (%) (Auto) 3.0 % Eosinophils (%) (Auto) 0.0 % Basophils (%) (Auto) 0.3 % Neutrophils # (Auto) 17.8 TH/MM3 Lymphocytes # (Auto) 0.6 TH/MM3 Monocytes # (Auto) 0.6 TH/MM3 Eosinophils # (Auto) 0.0 TH/MM3 Basophils # (Auto) 0.1 TH/MM3 CBC Comment AUTO DIFF Differential Total Cells 100 Counted Neutrophils % (Manual) 84 % Band Neutrophils % 8 % Lymphocytes % 3 % Monocytes % 5 % Neutrophils # (Manual) 17.5 TH/MM3 Differential Comment FINAL DIFF MANUAL Platelet Estimate NORMAL Platelet Morphology Comment NORMAL Red Cell Morphology Comment NORMAL Prothrombin Time 12.0 SEC Prothromb Time International 1.1 RATIO Ratio Activated Partial 27.7 SEC Thromboplast Time Sodium Level 138 MEQ/L Potassium Level 3.2 MEQ/L Chloride Level 98 MEQ/L Carbon Dioxide Level 26.9 MEQ/L Anion Gap 13 MEQ/L Blood Urea Nitrogen 9 MG/DL Creatinine 0.70 MG/DL Estimat Glomerular Filtration 113 ML/MIN Rate Random Glucose 179 MG/DL Calcium Level 9.2 MG/DL Total Bilirubin 0.6 MG/DL Aspartate Amino Transf 6 U/L (AST/SGOT) Alanine Aminotransferase 11 U/L (ALT/SGPT) Alkaline Phosphatase 87 U/L Total Protein 8.1 GM/DL Albumin 3.7 GM/DL Lipase 45 U/L Lactic Acid Level 2.1 mmol/L [facility] Medical Record Reviewed: Yes Supervised Visit with WAQAS: No Interpretation(s) Last Impressions Abdomen/Pelvis CT 12/23/161948 Signed Impressions: Service Date/Time: Friday, December 23, 2016 22:32 - CONCLUSION: 1. Mild, generalized colitis. No bowel obstruction. 2. Complex fluid collection has developed in the left pelvic cavity that I believe is most likely a recently hemorrhagic left ovarian cyst. An abscess is considered less likely. 3. Small ascites/free fluid. Benigno Luo MD Narrative Course During the course of the patients emergency department visit, the patients history, examination, and differential diagnosis were reviewed with the patient. The patient had IV access obtained and blood work sent for analysis. The patient's case was checked out to me by Amber who requested that I review the patient's CT scan of the abdomen and pelvis results. The patient was provided Zosyn IV, morphine, and Zofran by Amber prior to the patient's case being checked out to me. The patient was resting comfortably. The patients laboratory studies were reviewed and remarkable for a white count of 19, hemoglobin 12.7, platelets 450 with 84 neutrophils, 8 bands, CMP is remarkable for potassium of 3.2, glucose 179, lipase 45, lactic acid 2.1, PT PTT unremarkable, urinalysis shows concentrated urine 150 ketones. The patient was given in total 2 L of normal saline IV fluids. Repeat lactate was 0.7 Radiology studies were reviewed and remarkable for a CT scan of the abdomen and pelvis that shows mild generalized colitis, no bowel obstruction, complex fluid collection has developed in the left pelvic area that I believe is most likely a recently hemorrhagic left ovarian cyst and abscess is considered less likely, small ascites/free fluid, as read by the reading radiologist. The patient will be admitted to the hospital for continued evaluation and treatment of recurrent colitis of undetermined cause. The patients results were discussed with the patient, including the plan of care. I explained that further testing and/ or monitoring is indicated based on the patients history, examination, and/ or laboratory findings. Therefore, I recommended admission for additional evaluation. The patient expressed understanding and was agreeable with this plan. The patient was admitted to the hospital in stable condition and [facility] Sepsis Criteria SIRS Criteria (2 or more): Heart rate over 90, WBC > 16815, < 4000 or > 10% bands Physician Communication Physician Communication The patient's case will be discussed with Dr. Kennedy. Diagnosis Primary Impression: Abdominal pain Qualified Code: R10.84 - Generalized abdominal pain Additional Impressions: Colitis Leukocytosis Qualified Code: D72.825 - Bandemia Admitting Information Admitting Physician Requests: Admit Karla Young MD Dec 23, 2016 23:19
[2016-12-23 23:51] LABS: LACTIC ACID GHOST NOT REPORTABLE
[2016-12-24] VITALS (8 sets, daily range): BP systolic 105–143; BP diastolic 68–85; PULSE 88–106; RESP 15–20; TEMP 98.3–100.9; O2SAT 96–100
[2016-12-24] MEDS ORDERED: SODIUM CHLORIDE 0.9% FLUSH 5 ML FLUSH FLUSH PRN (01:00)
[2016-12-24] MEDS ORDERED: NALOXONE HCL 0.4 MG/ML AMP IV PRN (01:00)
[2016-12-24] MEDS: SODIUM CHLOR 0.9% 1000 ML INJ 1,000 ML IV SCH ×3 (01:30→20:14)
[2016-12-24] MEDS: MORPHINE SULFATE 4 MG/ML INJ IV PUSH PRN ×6 (01:45→20:12)
[2016-12-24] MEDS: POTASSIUM CHLOR 10 MEQ PREMIX 100 ML IV SCH ×3 (04:42→08:11)
[2016-12-24] MEDS: PIPERACIL-TAZO 4.5 GM PREMIX 100 ML IV SCH ×4 (04:59→23:30)
--- NOTE | 2016-12-24 05:10 | HHI.HP ---
[facility] No Primary Care Physician Admission Diagnosis colitis, abdominal pain Diagnoses: (1) Abdominal pain (2) Colitis (3) Leukocytosis (4) Hypokalemia Chief Complaint: Abdominal pain Travel History International Travel<30 Days: No Contact w/Intl Traveler <30 Da: No Traveled to Known Affected Are: No History of Present Illness Ms. Carrera is a 41 year-old with a past medical history of colitis and chronic abdominal pain who presents to the emergency room on 12/23/16 for evaluation of abdominal pain, nausea, and vomiting. She has been newly diagnosed with colitis but has not followed up with a stroke neurologist as an outpatient. CT of abdomen with oral and IV contrast showed mild generalized colitis with no bowel obstruction. Complex fluid collection in the left pelvic cavity most likely related to hemorrhagic left ovarian cyst and less likely an abscess. Small ascites/free fluid. The patient is seen and evaluated in her hospital room. She reports a 3 day history of diffuse abdominal pain that is severe with associated nausea and vomiting. She also reports pain with urination that makes her feel "like (her) my insides are going to come out". She also reports severe unintentional weight loss of 30 pounds over six-month period time accompanied by loss of appetite. She denies any bright red stool, diarrhea, or constipation. She reports chronic shortness of breath. She feels like she's been having fevers over the past few days but has not taken her temperature. She reports history of ovarian cyst 09/2016. She denies history of hypertension, diabetes mellitus, COPD, coronary artery disease, kidney problems, liver problems, thyroid problems, seizures, cancer, problems with blood clots such as DVT, PE, or CVA. . Review of Systems Except as stated in HPI: all other systems reviewed are Neg Past Family Social History Past Medical History Colitis Gout . Past Surgical History denies . Reported Medications Reported Meds & Active Scripts Active Allergies: Coded Allergies: No Known Allergies (Verified , 12/23/16) Active Ordered Medications Current Medications Morphine Sulfate (Morphine Inj) 4 mg ONCE ONCE IV PUSH Last administered on t 19:59; Start 2/21/17 at 20:00; Stop 12/23/16 at 20:01; Status DC Ondansetron HCl 4 mg 4 mg ONCE ONCE IVP Last administered on 12/23/16 19:59; Start 12/23/16 at 20:00; Stop 12/23/16 at 20:01; Status DC Sodium Chloride (NS 1000 ml Inj) 1,000 ml @ 1,000 mls/hr Q1H IV Last administered on 12/23/16 19:59; Start 12/23/16 at 19:49; Stop 12/23/16 at 20:48 ; Status DC IV Flush (NS Flush) 2 ml UNSCH PRN IVF FLUSH AFTER USING IV ACCESS; Start 12/23 at 20:00 Diatrizoate Meglum/ Diatrizoate Sod ( Gastroview Liq) 9 ml STK-MED ONCE .ROUTE Last administered on 12/23/16 20:20; Start 12/23/16 at 20:09; Stop at 20:10; Status DC Diatrizoate Meglum/ Diatrizoate Sod 9 ml 9 ml STK-MED ONCE .ROUTE Last administered on 12/23/16 20:20; Start 12/23/16 at 20:17; Stop 12/23/16 at 20:18 ; Status DC Piperacillin Sod/ Tazobactam Sod (Zosyn 4.5 Gm Premix) 100 ml @ 200 mls/hr ONCE STAT IV Last administered on 12/23/16 21:51; Start 12/23/16 at 21:06; Stop 12/23/16 at 21:35; Status DC Iohexol 93 ml 93 ml STK-MED ONCE IV Last administered on 12/23/16 22:45; Start 12/23/16 at 22:45; Stop 12/23/16 at 22:46; Status DC Sodium Chloride 1,000 ml @ 1,000 mls/hr Q1H IV Last administered on 12/23/16 23:02; Start 12/23/16 at 22:50; Stop 12/23/16 at 23:49; Status DC Sodium Chloride (NS 1000 ml Inj) 1,000 ml @ 100 mls/hr Q10H IV Last administered on 12/24/16 01:30; Start 12/24/16 at 00:46 IV Flush (NS Flush) 2 ml UNSCH PRN FLUSH FLUSH AFTER USING IV ACCESS; Start at 01:00 IV Flush (NS Flush) 2 ml BID FLUSH ; Start 12/24/16 at 09:00 Ondansetron HCl (Zofran Inj) 4 mg Q6H PRN IVP NAUSEA OR VOMITING; Start at 01:00 Naloxone HCl 0.4 mg 0.4 mg UNSCH PRN IV SEE LABEL COMMENTS; Start 12/24/16 at 01:00 Piperacillin Sod/ Tazobactam Sod (Zosyn 4.5 Gm Premix) 100 ml @ 200 mls/hr Q6H IV ; Start 12/24/16 at 04:00 Morphine Sulfate 2 mg 2 mg Q3H PRN IV PUSH pain >5 Last administered on 01:45; Start 12/24/16 at 01:00 Potassium Chloride (KCl 10 Meq Premix Inj) 100 ml @ 100 mls/hr Q1H IV ; Start 12/24/16 at 05:00; Stop 12/24/16 at 07:59 . Family History mother ovarian ca and hf father with cirrhosis of liver due to alcoholism brother with diabetes mellitus . Social History Tobacco: Denies - quit two weeks ago Alcohol: Denies Illicit Drugs: Marijuana . Physical Exam Vital Signs Vital Signs Date Time Temp Pulse Resp B/P Pulse Ox O2 Delivery O2 Flow Rate FiO2 12/24/16 04:09 91 12/24/16 02:29 100.9 100 18 121/83 96 12/24/16 01:45 88 18 130/68 99 Room Air 12/23/16 21:54 16 12/23/16 20:06 20 99 Room Air 12/23/16 19:45 20 12/23/16 19:40 98.2 104 20 136/81 100 12/23/16 19:26 98.7 99 24 136/85 100 Room Air Physical Exam GENERAL: This is a well-nourished, well-developed patient, in no apparent distress. SKIN: No rashes, ecchymoses or lesions. Cool and dry. HEAD: Atraumatic. Normocephalic. EYES: No scleral icterus. No injection or drainage. ENT: Nose without bleeding, purulent drainage. NECK: Trachea midline. No JVD or lymphadenopathy. CARDIOVASCULAR: Regular rate and rhythm without murmurs, gallops, or rubs. RESPIRATORY: Clear to auscultation. Breath sounds equal bilaterally. No wheezes , rales, or rhonchi. GASTROINTESTINAL: Abdomen soft, diffusely tender with palpation, nondistended. No guarding. MUSCULOSKELETAL: Extremities without clubbing, cyanosis, or edema. No calf tenderness. NEUROLOGICAL: Awake and alert. Motor and sensory grossly within normal limits. Normal speech. . Laboratory Laboratory Tests Test 12/23/16 12/23/16 12/24/16 19:53 21:45 00:25 White Blood Count 19.0 Red Blood Count 4.73 Hemoglobin 12.7 Hematocrit 38.3 Mean Corpuscular Volume 80.9 Mean Corpuscular Hemoglobin 26.9 Mean Corpuscular Hemoglobin 33.3 Concent Red Cell Distribution Width 14.0 Platelet Count 450 Mean Platelet Volume 6.7 Neutrophils (%) (Auto) 93.7 Lymphocytes (%) (Auto) 3.0 Monocytes (%) (Auto) 3.0 Eosinophils (%) (Auto) 0.0 Basophils (%) (Auto) 0.3 Neutrophils # (Auto) 17.8 Lymphocytes # (Auto) 0.6 Monocytes # (Auto) 0.6 Eosinophils # (Auto) 0.0 Basophils # (Auto) 0.1 CBC Comment AUTO DIFF Differential Total Cells 100 Counted Neutrophils % (Manual) 84 Band Neutrophils % 8 Lymphocytes % 3 Monocytes % 5 Neutrophils # (Manual) 17.5 Differential Comment FINAL DIFF MANUAL Platelet Estimate NORMAL Platelet Morphology Comment NORMAL Red Cell Morphology Comment NORMAL Prothrombin Time 12.0 Prothromb Time International 1.1 Ratio Activated Partial 27.7 Thromboplast Time Sodium Level 138 Potassium Level 3.2 Chloride Level 98 Carbon Dioxide Level 26.9 Anion Gap 13 Blood Urea Nitrogen 9 Creatinine 0.70 Estimat Glomerular Filtration 113 Rate Random Glucose 179 Calcium Level 9.2 Total Bilirubin 0.6 Aspartate Amino Transf 6 (AST/SGOT) Alanine Aminotransferase 11 (ALT/SGPT) Alkaline Phosphatase 87 Total Protein 8.1 Albumin 3.7 Lipase 45 Lactic Acid Level 2.1 0.7 Date/Time Procedure Status Source Growth 12/23/16 21:45 Aerobic Blood Culture Received Blood Peripheral Pending 12/23/16 21:45 Anaerobic Blood Culture Received Blood Peripheral Pending Result Diagram: 12/23/16195212/23/161952 Imaging Last Impressions Abdomen/Pelvis CT 12/23/161948 Signed Impressions: Service Date/Time: Friday, December 23, 2016 22:32 - CONCLUSION: 1. Mild, generalized colitis. No bowel obstruction. 2. Complex fluid collection has developed in the left pelvic cavity that I believe is most likely a recently hemorrhagic left ovarian cyst. An abscess is considered less likely. 3. Small ascites/free fluid. Benigno Luo MD . Assessment and Plan Problem List: (1) Abdominal pain ICD Code: R10.9 Status: Acute (2) Colitis ICD Code: K52.9 Status: Acute (3) Leukocytosis ICD Code: D72.829 Status: Acute (4) Hypokalemia ICD Code: E87.6 Status: Acute Assessment and Plan Ms. Carrera is a 41 year-old with a past medical history of colitis and chronic abdominal pain who is admitted with colitis, leukocytosis with left shift, and hypokalemia. Abdominal pain - colitis versus ruptured ovarian cyst versus abscess - Zosyn 4.5 g every 6 hours IV - Morphine 2 mg IV push every 3 hours when necessary for pain - Check vital signs every 4 hours - Nothing by mouth - Normal saline at 100 cc per hour - Received normal saline boluses totaling 2 L in the ER - Lipase low at 45 Leukocytosis with left shift - Treat for infection with antibiotics - Repeat CBC in a.m. and follow trends - Initial lactic acid 2.1 and repeat lactic acid 0.7 Hypokalemia - Potassium 3.2 - Replace potassium - Recheck level in a.m. and replace as needed DVT prophylaxis - SCDs Written by Laila Shields, acting as scribe for Dr. Kennedy on 12/24/16 at 04:50. All or portions of this note were transcribed by scribe [Laila Shields]. I, Dr. Mj Kennedy personally performed the history, physical exam, and medical decision making; and confirmed the accuracy of the information in the transcribed note. Authenticated by Dr. Mj Kennedy on 12/24/16 at 0450 Discussed Condition With Patient, RN, and the ER physician Physician Certification 2 Midnight Certification Type: Admission for Inpatient Services Order for Inpatient Services The services are ordered in accordance with Medicare regulations or non- Medicare payer requirements, as applicable. In the case of services not specified as inpatient-only, they are appropriately provided as inpatient services in accordance with the 2-midnight benchmark. Estimated LOS (days): 3 days is the estimated time the patient will need to remain in the hospital, assuming treatment plan goals are met and no additional complications. Post-Hospital Plan: Not yet determined Problem Qualifiers (1) Abdominal pain: Qualified Code: R10.84 - Generalized abdominal pain (2) Leukocytosis: Qualified Code: D72.825 - Bandemia Laila Shields Dec 24, 2016 05:10 Mj Kennedy MD Jan 07, 2017 08:34
[2016-12-24 05:35] LABS: BLOOD, URINE SMALL (NEG); GLUCOSE,URINE NEG (NEG); KETONE, URINE 150 mg/dL (NEG); MUCUS URINE FEW /lpf (OCC); NITRITE,URINE NEG (NEG); SQUAMOUS EPITHELIAL CELL URINE 6 /hpf (0-5); URINE COLOR YELLOW (YELLW/STRAW)
[2016-12-24 05:37] LABS: COMMENT (UR) CULT NOT INDICATED; CULTURE IF INDICATED CULT NOT INDICATED
[2016-12-24] MEDS: SODIUM CHLORIDE 0.9% FLUSH 5 ML FLUSH FLUSH SCH ×2 (08:11→20:13)
--- NOTE | 2016-12-24 10:37 | HHI.PR ---
Subjective Remarks Follow-up colitis 12/24/16-patient seen and examined, still complain of abdominal pain however denies any nausea and vomiting. No report of diarrhea episodes Objective Vitals Vital Signs Date Time Temp Pulse Resp B/P Pulse Ox O2 Delivery O2 Flow Rate FiO2 12/24/16 08:16 18 12/24/16 08:05 98.6 96 20 105/73 99 12/24/16 05:04 100.5 100 15 116/82 100 12/24/16 04:09 91 12/24/16 02:29 100.9 100 18 121/83 96 12/24/16 01:45 88 18 130/68 99 Room Air 12/23/16 21:54 16 12/23/16 20:06 20 99 Room Air 12/23/16 19:45 20 12/23/16 19:40 98.2 104 20 136/81 100 12/23/16 19:26 98.7 99 24 136/85 100 Room Air I/O 12/23/16 12/23/16 12/23/16 12/24/16 12/24/16 12/24/16 07:00 15:00 23:00 07:00 15:00 23:00 Output Total 200 ml Balance -200 ml Output Urine Total 200 ml # Voids 1 Result Diagram: 12/23/16195212/23/161952 Imaging Last Impressions Abdomen/Pelvis CT 12/23/161948 Signed Impressions: Service Date/Time: Friday, December 23, 2016 22:32 - CONCLUSION: 1. Mild, generalized colitis. No bowel obstruction. 2. Complex fluid collection has developed in the left pelvic cavity that I believe is most likely a recently hemorrhagic left ovarian cyst. An abscess is considered less likely. 3. Small ascites/free fluid. Benigno Luo MD Objective Remarks GENERAL: NAD SKIN: Warm and dry. HEAD: Normocephalic. EYES: No scleral icterus. No injection or drainage. NECK: Supple, trachea midline. No JVD or lymphadenopathy. CARDIOVASCULAR: Regular rate and rhythm without murmurs, gallops, or rubs. RESPIRATORY: Breath sounds equal bilaterally. No accessory muscle use. GASTROINTESTINAL: Abdomen soft, mildly tender, nondistended. Positive bowel sounds MUSCULOSKELETAL: No cyanosis, or edema. BACK: Nontender without obvious deformity. No CVA tenderness. A/P Problem List: (1) Colitis ICD Code: K52.9 Status: Acute (2) Abdominal pain ICD Code: R10.9 Status: Acute (3) Leukocytosis ICD Code: D72.829 Status: Acute (4) Hypokalemia ICD Code: E87.6 Status: Acute Assessment and Plan 41 year-old female with Colitis: CT abdomen noted with finding of colitis. Currently on Zosyn and add Flagyl 500 mg every 8 IV. Continue with current pain management, IV fluid hydration, pain medication. Monitor cultures, need to check stool for ova and parasite and if indicated rule out C. difficile with C. difficile PCR Hemorrhagic left ovarian cyst: Per CT abdomen/pelvis finding. H&H stable, continue to monitor Lactic acidosis resolved Hypokalemia : Replace and monitor DVT prophylaxis : SCDs GI prophylaxis: PPI Problem Qualifiers (1) Abdominal pain: Qualified Code: R10.84 - Generalized abdominal pain (2) Leukocytosis: Qualified Code: D72.825 - Bandemia Lauro Oreilly MD Dec 24, 2016 10:37
[2016-12-24] MEDS: metroNIDAZOLE 500 MG INJ 100 ML IV SCH ×2 (12:46→20:15)
[2016-12-24] MEDS: LACTOBACILLUS ACIDOPHILUS TAB PO SCH (20:14)
[2016-12-25] VITALS (7 sets, daily range): BP systolic 128–142; BP diastolic 83–94; PULSE 57–112; RESP 18–20; TEMP 96.9–100.4; O2SAT 96–100
[2016-12-25] MEDS: MORPHINE SULFATE 4 MG/ML INJ IV PUSH PRN ×6 (01:25→20:37)
[2016-12-25] MEDS: PIPERACIL-TAZO 4.5 GM PREMIX 100 ML IV SCH ×4 (04:12→22:48)
[2016-12-25] MEDS: metroNIDAZOLE 500 MG INJ 100 ML IV SCH ×3 (04:13→20:35)
[2016-12-25] MEDS: SODIUM CHLOR 0.9% 1000 ML INJ 1,000 ML IV SCH ×2 (04:38→17:22)
[2016-12-25] MEDS: SODIUM CHLORIDE 0.9% FLUSH 5 ML FLUSH FLUSH SCH ×2 (09:00→20:38)
[2016-12-25] MEDS: LACTOBACILLUS ACIDOPHILUS TAB PO SCH ×2 (09:00→20:36)
[2016-12-25 09:36] LABS: BASOPHIL % 0.2 % (0.0-2.0); EOSINOPHIL % 0.1 % (0.0-4.0); HEMATOCRIT 28.2 % (35.0-46.0); HEMO FLAGS DIFF FINAL; LYMPH % 3.3 % (9.0-44.0); LYMPHOCYTE # 0.7 TH/MM3 (1.0-4.8); MEAN CELL VOLUME 80.6 FL (80.0-100.0); MEAN CORPUSCULAR HEMOGLOBIN 26.9 PG (27.0-34.0); MEAN CORPUSCULAR HGB CONC 33.4 % (32.0-36.0); MONO % 5.4 % (0.0-8.0); PLATELET COUNT 353 TH/MM3 (150-450); RED CELL DISTRIBUTION WIDTH 14.6 % (11.6-17.2); WHITE BLOOD COUNT 21.9 TH/MM3 (4.0-11.0)
[2016-12-25 10:46] LABS: ALKALINE PHOSPHATASE 85 U/L (45-117); ALT (GPT) 7 U/L (10-53); ANION GAP 11 MEQ/L (5-15); AST (GOT) 9 U/L (15-37); BICARBONATE 21.7 MEQ/L (21.0-32.0); BLOOD UREA NITROGEN 8 MG/DL (7-18); CHLORIDE 102 MEQ/L (98-107); GLOMERULAR FILTRATION RATE 228 ML/MIN (>89); POTASSIUM 3.2 MEQ/L (3.5-5.1); SODIUM (NA) 135 MEQ/L (136-145); TOTAL BILIRUBIN ADULT 0.8 MG/DL (0.2-1.0)
[2016-12-25] MEDS ORDERED: RESP: ALBUTEROL 2.5 MG/IPRATROPIUM 0.5 MG NEB (PRN) NEB (11:15)
[2016-12-25] MEDS ORDERED: CALCIUM CARBONATE 500 MG CHEWABLE TAB CHEW PRN (11:15)
[2016-12-25] MEDS ORDERED: TEMAZEPAM 15 MG CAP PO PRN (11:15)
[2016-12-25] MEDS ORDERED: DOCUSATE SODIUM 50 MG/SENNA 8.6 MG TAB PO PRN (11:15)
[2016-12-25] MEDS ORDERED: POTASSIUM CHLORIDE 25 MEQ EFFERVESCENT TAB PO ONE (11:15)
--- NOTE | 2016-12-25 11:15 | HHI.PR ---
Subjective Remarks Follow-up colitis 12/24/16-patient seen and examined, still complain of abdominal pain however denies any nausea and vomiting. No report of diarrhea episodes 12/25/16-patient seen and examined, spiking fevers and complaining of abdominal pain with nausea without any emesis. No BM Objective Vitals Vital Signs Date Time Temp Pulse Resp B/P Pulse Ox O2 Delivery O2 Flow Rate FiO2 12/25/16 08:31 99.7 105 18 128/88 98 12/25/16 04:56 57 12/25/16 04:20 99.4 110 18 133/83 97 12/25/16 02:00 16 12/25/16 00:16 100.4 112 20 133/83 98 12/24/16 20:20 99.7 106 20 143/85 98 12/24/16 16:00 99.8 104 20 124/81 99 12/24/16 12:00 98.3 94 18 111/73 100 I/O 12/24/16 12/24/16 12/24/16 12/25/16 12/25/16 12/25/16 07:00 15:00 23:00 07:00 15:00 23:00 Intake Total 0 ml 0 ml Output Total 600 ml 100 ml Balance -600 ml -100 ml Intake Oral 0 ml 0 ml Output Urine Total 600 ml 100 ml # Voids 1 1 2 Result Diagram: 12/25/16 0808 12/25/16 0858 Imaging Last Impressions Abdomen/Pelvis CT 12/23/161948 Signed Impressions: Service Date/Time: Friday, December 23, 2016 22:32 - CONCLUSION: 1. Mild, generalized colitis. No bowel obstruction. 2. Complex fluid collection has developed in the left pelvic cavity that I believe is most likely a recently hemorrhagic left ovarian cyst. An abscess is considered less likely. 3. Small ascites/free fluid. Benigno Luo MD Objective Remarks GENERAL: NAD SKIN: Warm and dry. HEAD: Normocephalic. EYES: No scleral icterus. No injection or drainage. NECK: Supple, trachea midline. No JVD or lymphadenopathy. CARDIOVASCULAR: Regular rate and rhythm without murmurs, gallops, or rubs. RESPIRATORY: Breath sounds equal bilaterally. No accessory muscle use. GASTROINTESTINAL: Abdomen soft, mildly tender, nondistended. Positive bowel sounds MUSCULOSKELETAL: No cyanosis, or edema. BACK: Nontender without obvious deformity. No CVA tenderness. A/P Problem List: (1) Colitis ICD Code: K52.9 Status: Acute (2) Abdominal pain ICD Code: R10.9 Status: Acute (3) Leukocytosis ICD Code: D72.829 Status: Acute (4) Hypokalemia ICD Code: E87.6 Status: Acute Assessment and Plan 41 year-old female with Colitis: CT abdomen noted with finding of colitis. Currently on Zosyn and Flagyl 500 mg every 8 IV. Continue with current pain management, IV fluid hydration, pain medication. Monitor cultures, need to check stool for ova and parasite and if indicated rule out C. difficile with C. difficile PCR. Patient mentions mucousy stool prior to the onset of colitis, therefore will consult gastroenterology for evaluation Hemorrhagic left ovarian cyst: Per CT abdomen/pelvis finding. H&H stable, continue to monitor Lactic acidosis: resolved Hypokalemia : Give potassium 50 mEq 1 now and monitor DVT prophylaxis : SCDs GI prophylaxis: PPI Problem Qualifiers (1) Abdominal pain: Qualified Code: R10.84 - Generalized abdominal pain (2) Leukocytosis: Qualified Code: D72.825 - Bandemia Lauro Oreilly MD Dec 25, 2016 11:15
--- NOTE | 2016-12-25 16:48 | PD.CONS ---
HPI History of Present Illness This is a 41 year old who came to the ER for evaluation of abdominal pain with decreased appetite and abnormal weight loss. She was evaluated by our service back in September [address] scan at that time revealed diffuse colonic wall thickening which can be seen with colitis, no perforation or abscess. Colonoscopy revealed sigmoid erythema of unclear significance, rectal polyps. Pathology revealed colonic mucosal biopsies without significant histopathologic abnormality, colonic mucosal biopsies with hyperplastic polyp. Stool studies at that time were negative for cryptosporidium, white blood cells , Giardia, Campylobacter, Shiga toxin, and enteric pathogens. C. difficile was negative. She was treated with antibiotics and then discharged when her symptoms improved. She reports that since that time her symptoms have never completely resolved. She has continued to have decreased appetite and weight loss reporting that she has lost about 30 pounds. She has had intermittent abdominal pain. This latest episode began suddenly on Thursday. She describes it as severe lower abdominal pain that radiates up into her entire abdomen and chest. It is worse on the left side. It is not aggravated by food intake. She denies any diarrhea. She has some mild nausea but no vomiting. She does report that she has constipation and sometimes does not move her bowels for about a week. Her last bowel movement was about 5 days ago. She denies any melena or hematochezia. She does report that she has intermittent sores on the inside of her mouth. She also reports intermittent fevers. She denies any vaginal symptoms such as odor, discharge, or itching. She denies any recent antibiotic use. She denies any recent travel or suspicious food. She denies any family history of inflammatory bowel disease. PFSH Past Medical History Colitis Gout Decreased appetite, weight loss Hx of trichomonas Past Surgical History Colonoscopy Coded Allergies: No Known Allergies (Verified , 12/23/16) Medications Allergies Coded Allergies Type Severity Reaction Last Updated Verified No Known Allergies 12/23/16 Yes Active Scripts Medications Dose Route/Sig Days Date Category Family History Mother ovarian ca and chf Father with cirrhosis of liver due to alcoholism Brother with diabetes mellitus Social History Tobacco: Denies, quit two weeks ago Alcohol: Denies Illicit Drugs: Marijuana Review of Systems Constitutional: COMPLAINS OF: Fatigue, Fever, Weight loss, Chills, Change in appetite Ears, nose, mouth, throat: COMPLAINS OF: Oral lesions Respiratory: DENIES: Cough Cardiovascular: DENIES: Chest pain Gastrointestinal: COMPLAINS OF: Abdominal pain, Constipation, Nausea, DENIES: Black stools, Bloody stools, Diarrhea, Vomiting Integumentary: DENIES: Rash Psychiatric: DENIES: Confusion GI Exam Vitals I&O Vital Signs Date Time Temp Pulse Resp B/P Pulse Ox O2 Delivery O2 Flow Rate FiO2 12/25/16 16:09 99.6 87 18 142/94 96 12/25/16 13:22 98.0 97 18 135/93 99 12/25/16 08:31 99.7 105 18 128/88 98 12/25/16 04:56 57 12/25/16 04:20 99.4 110 18 133/83 97 12/25/16 02:00 16 12/25/16 00:16 100.4 112 20 133/83 98 12/24/16 20:20 99.7 106 20 143/85 98 I/O 12/24/16 12/24/16 12/24/16 12/25/16 12/25/16 12/25/16 07:00 15:00 23:00 07:00 15:00 23:00 Intake Total 0 ml 0 ml Output Total 600 ml 100 ml Balance -600 ml -100 ml Intake Oral 0 ml 0 ml Output Urine Total 600 ml 100 ml # Voids 1 1 2 1 Imaging Last Impressions Abdomen/Pelvis CT 12/23/161948 Signed Impressions: Service Date/Time: Friday, December 23, 2016 22:32 - CONCLUSION: 1. Mild, generalized colitis. No bowel obstruction. 2. Complex fluid collection has developed in the left pelvic cavity that I believe is most likely a recently hemorrhagic left ovarian cyst. An abscess is considered less likely. 3. Small ascites/free fluid. Benigno Luo MD Laboratory Test 12/25/16 12/25/16 08:08 08:58 White Blood Count 21.9 TH/MM3 Red Blood Count 3.50 MIL/MM3 Hemoglobin 9.4 GM/DL Hematocrit 28.2 % Mean Corpuscular Volume 80.6 FL Mean Corpuscular Hemoglobin 26.9 PG Mean Corpuscular Hemoglobin 33.4 % Concent Red Cell Distribution Width 14.6 % Platelet Count 353 TH/MM3 Mean Platelet Volume 6.8 FL Neutrophils (%) (Auto) 91.0 % Lymphocytes (%) (Auto) 3.3 % Monocytes (%) (Auto) 5.4 % Eosinophils (%) (Auto) 0.1 % Basophils (%) (Auto) 0.2 % Neutrophils # (Auto) 20.0 TH/MM3 Lymphocytes # (Auto) 0.7 TH/MM3 Monocytes # (Auto) 1.2 TH/MM3 Eosinophils # (Auto) 0.0 TH/MM3 Basophils # (Auto) 0.0 TH/MM3 CBC Comment DIFF FINAL Differential Comment Sodium Level 135 MEQ/L Potassium Level 3.2 MEQ/L Chloride Level 102 MEQ/L Carbon Dioxide Level 21.7 MEQ/L Anion Gap 11 MEQ/L Blood Urea Nitrogen 8 MG/DL Creatinine 0.38 MG/DL Estimat Glomerular Filtration 228 ML/MIN Rate Random Glucose 93 MG/DL Calcium Level 8.2 MG/DL Total Bilirubin 0.8 MG/DL Aspartate Amino Transf 9 U/L (AST/SGOT) Alanine Aminotransferase 7 U/L (ALT/SGPT) Alkaline Phosphatase 85 U/L Total Protein 6.0 GM/DL Albumin 2.3 GM/DL Date/Time Procedure Status Source Growth 12/23/16 21:45 Aerobic Blood Culture - Preliminary Resulted Blood Peripheral NO GROWTH IN 2 DAYS 12/23/16 21:45 Anaerobic Blood Culture - Preliminary Resulted Blood Peripheral NO GROWTH IN 2 DAYS Physical Examination HEENT: Normocephalic; atraumatic; no jaundice. oral thrush NECK: Neck is supple, no JVD, no lymphadenopathy. CHEST: CTA CARDIAC: RRR ABDOMEN: Soft, mildly distended, moderate tenderness, diffuse but more so on left side; no hepatosplenomegaly; bowel sounds are present in all four quadrants. EXTREMITIES: No clubbing, cyanosis, or edema. SKIN: Normal; no rash; no jaundice. IDEA WORKER: No focal deficits; alert and oriented times three. Assessment and Plan Plan ASSESSMENT: - Abdominal pain. Abdomen/Pelvis CT (12/23/16)----> 1. Mild, generalized colitis. No bowel obstruction. 2. Complex fluid collection has developed in the left pelvic cavity that I believe is most likely a recently hemorrhagic left ovarian cyst. An abscess is considered less likely. 3. Small ascites/free fluid. WBC 21.9. - Colitis. Pt with mild generalized colitis on imaging. She was seen by our service in September [address] at that time revealed diffuse wall thickening. Stool studies at that time were negative for cryptosporidium, white blood cells, Giardia, Campylobacter, Shiga toxin, and enteric pathogens. C. difficile was negative. Colonoscopy revealed sigmoid erythema of unclear significance, rectal polyps. Pathology revealed colonic mucosal biopsies without significant histopathologic abnormality, colonic mucosal biopsies with hyperplastic polyp. She was treated with abx and discharged once her symptoms improved. She reports that she never really got better and continued to have decreased appetite, weight loss. No recent travel, suspicious food, abx use. No family hx of IBD. - Abnormal imaging left pelvic cavity. Complex fluid collection, ?hemorrhagic left ovarian cyst, abscess less likely. She denies any vaginal symptoms such as odor, discharge, or itching. - Decreased appetite, abnormal weight loss. Ongoing decreased appetite and weight loss ~ 30 lbs since September. - Leukocytosis, fevers. WBC 21.9. - Anemia, normocytic. 9.4/28.2. - Oral Viridiana. - Hypokalemia. - Constipation, chronic. States last bm 5 days ago. PLAN: - MAXIMO - Stool for c/s, wbc, giardia, cryptosporidium - Zosyn - Flagyl - PPI - Add Nystatin - Consider [employer] TECH evaluation - Hcg level - Further recommendations to follow after seen and examined by Dr. Sharon Frank,Shea MCMILLAN Dec 25, 2016 16:48
[2016-12-25] MEDS: NYSTATIN SUSP 500,000 U/5 ML CUP SWISH-SWAL SCH ×2 (17:22→20:36)
[2016-12-25 17:44] LABS: BETA HCG QUANT LESS THAN 1 MIU/ML (0-5)
[2016-12-26] VITALS (7 sets, daily range): BP systolic 131–149; BP diastolic 85–97; PULSE 78–100; RESP 18; TEMP 98.1–99.9; O2SAT 96–100
[2016-12-26] MEDS: SODIUM CHLOR 0.9% 1000 ML INJ 1,000 ML IV SCH ×3 (02:46→20:56)
[2016-12-26] MEDS: metroNIDAZOLE 500 MG INJ 100 ML IV SCH ×3 (04:32→20:55)
[2016-12-26] MEDS: MORPHINE SULFATE 4 MG/ML INJ IV PUSH PRN ×4 (04:32→20:53)
[2016-12-26] MEDS: PIPERACIL-TAZO 4.5 GM PREMIX 100 ML IV SCH ×4 (04:33→22:20)
[2016-12-26 07:35] LABS: AUTOMATED NEUTROPHIL # 18.2 TH/MM3 (1.8-7.7); BASOPHIL # 0.1 TH/MM3 (0-0.2); BASOPHIL % 0.5 % (0.0-2.0); HEMATOCRIT 28.5 % (35.0-46.0); HEMO FLAGS DIFF FINAL; LYMPH % 2.9 % (9.0-44.0); LYMPHOCYTE # 0.6 TH/MM3 (1.0-4.8); MEAN CELL VOLUME 81.1 FL (80.0-100.0); MEAN CORPUSCULAR HEMOGLOBIN 26.7 PG (27.0-34.0); MEAN CORPUSCULAR HGB CONC 32.9 % (32.0-36.0); MONO % 4.6 % (0.0-8.0); PLATELET COUNT 388 TH/MM3 (150-450); RED BLOOD COUNT 3.51 MIL/MM3 (4.00-5.30); RED CELL DISTRIBUTION WIDTH 14.1 % (11.6-17.2); WHITE BLOOD COUNT 19.8 TH/MM3 (4.0-11.0)
[2016-12-26 08:18] LABS: POTASSIUM 2.9 MEQ/L (3.5-5.1)
[2016-12-26] MEDS: SODIUM CHLORIDE 0.9% FLUSH 5 ML FLUSH FLUSH SCH ×2 (09:00→20:55)
[2016-12-26] MEDS: NYSTATIN SUSP 500,000 U/5 ML CUP SWISH-SWAL SCH ×4 (09:35→20:54)
[2016-12-26] MEDS: LACTOBACILLUS ACIDOPHILUS TAB PO SCH ×2 (09:36→20:54)
--- NOTE | 2016-12-26 10:47 | HHI.PR ---
Subjective Remarks Follow-up colitis 12/24/16-patient seen and examined, still complain of abdominal pain however denies any nausea and vomiting. No report of diarrhea episodes 12/25/16-patient seen and examined, spiking fevers and complaining of abdominal pain with nausea without any emesis. No BM 12/26/16-patient seen and examined; currently afebrile however still complain of abdominal pain. States she does not feel like eating but denies any nausea or vomiting Objective Vitals Vital Signs Date Time Temp Pulse Resp B/P Pulse Ox O2 Delivery O2 Flow Rate FiO2 12/26/16 08:19 98.1 92 18 137/87 96 12/26/16 04:31 99.8 96 18 146/97 99 12/26/16 00:08 99.9 100 18 148/95 98 12/25/16 20:29 96.9 91 18 131/88 100 12/25/16 16:09 99.6 87 18 142/94 96 12/25/16 13:22 98.0 97 18 135/93 99 I/O 12/25/16 12/25/16 12/25/16 12/26/16 12/26/16 12/26/16 07:00 15:00 23:00 07:00 15:00 23:00 Intake Total 480 ml 240 ml Balance 480 ml 240 ml Intake Oral 480 ml 240 ml # Voids 2 1 1 1 # Bowel Movements 1 Result Diagram: 12/26/16 0630 12/26/16 0630 Imaging Last Impressions Abdomen/Pelvis CT 12/23/161948 Signed Impressions: Service Date/Time: Friday, December 23, 2016 22:32 - CONCLUSION: 1. Mild, generalized colitis. No bowel obstruction. 2. Complex fluid collection has developed in the left pelvic cavity that I believe is most likely a recently hemorrhagic left ovarian cyst. An abscess is considered less likely. 3. Small ascites/free fluid. Benigno Luo MD Objective Remarks GENERAL: NAD SKIN: Warm and dry. HEAD: Normocephalic. EYES: No scleral icterus. No injection or drainage. NECK: Supple, trachea midline. No JVD or lymphadenopathy. CARDIOVASCULAR: Regular rate and rhythm without murmurs, gallops, or rubs. RESPIRATORY: Breath sounds equal bilaterally. No accessory muscle use. GASTROINTESTINAL: Abdomen soft, mildly tender, nondistended. Positive bowel sounds MUSCULOSKELETAL: No cyanosis, or edema. BACK: Nontender without obvious deformity. No CVA tenderness. A/P Problem List: (1) Colitis ICD Code: K52.9 Status: Acute (2) Abdominal pain ICD Code: R10.9 Status: Acute (3) Leukocytosis ICD Code: D72.829 Status: Acute (4) Hypokalemia ICD Code: E87.6 Status: Acute Assessment and Plan 41 year-old female with Colitis: CT abdomen noted with finding of colitis. Currently on Zosyn and Flagyl 500 mg every 8 IV. Continue with current pain management, IV fluid hydration, pain medication. Monitor cultures, need to check stool for ova and parasite and if indicated rule out C. difficile with C. difficile PCR. Appreciate input from gastroenterology Hemorrhagic left ovarian cyst: Per CT abdomen/pelvis finding. H&H stable, check pelvic ultrasound and consult gynecology for evaluation for possible removal Lactic acidosis: resolved Hypokalemia : Give potassium 75 mEq 1 now and monitor DVT prophylaxis : SCDs GI prophylaxis: PPI Problem Qualifiers (1) Abdominal pain: Qualified Code: R10.84 - Generalized abdominal pain (2) Leukocytosis: Qualified Code: D72.825 - Bandemia Lauro Oreilly MD Dec 26, 2016 10:47
[2016-12-26] MEDS ORDERED: POTASSIUM CHLORIDE 25 MEQ EFFERVESCENT TAB PO ONE (11:00)
--- NOTE | 2016-12-26 12:31 | PD.CONS ---
HPI Chief Complaint OB Consult Date Seen: Dec 26, 2016 Time Seen: 12:00 (Veronica Landry MD R1) Travel History International Travel<30 Days: No Contact w/Intl Traveler<30Days: No Known Affected Area: No (Veronica Landry MD R1) History of Present Illness HPI Patient is a 41-year-old G0 who presented to the ED with nausea, vomiting, abdominal pain on 12/23/16. OB hospitalist service was consulted due to abnormal CT abdomen/pelvic findings suggestive of hemorrhagic ovarian cyst. Patient states she has a history of colitis since last year and was not treated for this. She had 3 days of abdominal pain, vomiting prior to presenting to the ED. Pain is located across the lower abdomen and does not extend into the pelvis. Lower quadrant is more painful than right lower quadrant, does not radiate to the back, 8/10 in severity. She does know that it radiates from the umbilicus up to the chest and down to the lower quadrants. The pain is constant and not cyclical in nature. She also endorses fatigue, decreased appetite. Will to drink water without nausea at this time. Her abdominal pain is improved with morphine, but the relief does not last long. She denies any vaginal symptoms including vaginal bleeding and discharge. She denies being sexually active. LMP 12/09/16. Periods are generally 5-7 days, monthly, always regular. She has had Pap smears in the past which were normal; she does not recall when her last Pap was. Beta hCG collected this hospital stay is less than 1. She denies a history of ovarian cysts or torsion, and denies history of dysfunctional bleeding or fibroids. However, per primary team notes, she reported history of ovarian cyst in 09/2016. She states her pain has improved a little since admission. She currently endorses feeling warm, but denies overt fevers, chills. She states she is short of breath when she gets up, she states the pain is worse when she moves. She denies other symptoms at this time. Para: 0 : 0 Last Menstrual Period: Dec 09, 2016 Miscarriage: 0 : 0 (Veronica Landry MD R1) History Past Medical History Narrative Medical Colitis since 2015, not requiring suppressive medications or steroids per report Anemia - iron deficiency, reportedly not on iron Gout (Veronica Landry MD R1) Obstetric History Obstetric History G0, states she has never had or miscarriage (Veronica Landry MD R1) Past Surgical History Surgical History: No Previous Surgery (Veronica Landry MD R1) Family History Narrative Family History Mother with ovarian cancer at age 79, also had CHF (Veronica Landry MD R1) Social History Alcohol Use: No (denies) Tobacco Use: Yes (quit 2 weeks ago, approximately one pack per day) Substance Abuse: Yes (marijuana) (Veronica Landry MD R1) Allergies-Medications (Allergen,Severity, Reaction): Coded Allergies: No Known Allergies (Verified , 12/23/16) Home Meds Discontinued Scripts Promethazine Supp (Phenergan Supp)25 Mg Supp25 Mg RECTAL Q6HR PRN (NAUSEA OR VOMITING) #10 SUPP Ref 0 Prov:Kathryn Pena MD 12/09/16 Dicyclomine (Bentyl)10 Mg Cap10 Mg PO TID PRN (Bowel Management) #15 CAP Ref 0 Prov:Kathryn Pena MD 12/09/16 Ondansetron Odt (Zofran Odt)4 Mg Tab4 Mg SL Q8HR PRN (Nausea/Vomiting) #10 TAB Ref 0 Prov:Karla Young MD 12/08/16 Review of Systems Except as stated in HPI: all other systems reviewed are Neg (Veronica Landry MD R1) Physical Exam Vital Signs Date Time Temp Pulse Resp B/P Pulse Ox O2 Delivery O2 Flow Rate FiO2 12/26/16 08:19 98.1 92 18 137/87 96 12/26/16 04:31 99.8 96 18 146/97 99 12/26/16 00:08 99.9 100 18 148/95 98 12/25/16 20:29 96.9 91 18 131/88 100 12/25/16 16:09 99.6 87 18 142/94 96 12/25/16 13:22 98.0 97 18 135/93 99 Narrative GENERAL: Thin, well-developed female lying in bed. SKIN: Warm and dry. No obvious rashes or ecchymoses. HEAD: Normocephalic and atraumatic. ENT: No nasal drainage noted. Airway patent. NECK: Supple, trachea midline. No JVD. CARDIOVASCULAR: Regular rate and rhythm without murmurs, gallops, or rubs. RESPIRATORY: Breath sounds equal bilaterally. No accessory muscle use. ABDOMEN/GI: Abdomen soft, possibly distended from baseline but not obvious. Hypoactive bowel sounds. Patient was diffusely tender to palpation, worse in the lower abdomen bilaterally. No obvious rebound tenderness, but patient is voluntarily guarding. EXTREMITIES: No cyanosis or edema. BACK: Nontender without obvious deformity. No CVA tenderness. NEUROLOGICAL: Awake and alert. Normal speech. GENITOURINARY: bimanual exam performed without speculum External Genitalia: intact and normal in appearance Cervix: closed, thick, without cervical motion tenderness Uterus: non-gravid, normal Ovaries: not palpable (Veronica Landry MD R1) Data Data Vital Signs Reviewed: Yes (AF VSS, no hypotension or fever) Orders (Hub Use Only)In Phy Cons/Ref (12/25/16 ) Nystatin Liq (Mycostatin Liq) (12/25/16 18:00) Cryptosporidium (Stool) (12/25/16 16:48) Enteric Path (Stool) (12/25/16 16:48) Giardia Antigen (Stool) (12/25/16 16:48) Stool Ova And Parasite Screen (12/25/16 16:48) Stool Wbc (Leukocytes) (12/25/16 16:48) Specimen To Be Collected PRN (12/25/16 16:48) Specimen To Be Collected PRN (12/25/16 16:48) Diet Clear Liquid (12/25/16 Dinner) Beta Hcg (Quant/Titer) (12/25/16 16:48) Potassium Chloride Eff (K-Lyte Cl Eff) (12/26/16 11:00) Basic Metabolic Panel (Bmp) (12/27/16 06:00) Consult Gynecology (12/26/16 ) Us Pelvis Comp Furniture Refinisher/Non-Preg (12/26/16 ) Complete Blood Count With Diff (12/27/16 06:00) (Hub Use Only)In Phy Cons/Ref (12/26/16 ) Labs Laboratory Tests Test 12/26/16 06:30 White Blood Count 19.8 Red Blood Count 3.51 Hemoglobin 9.4 Hematocrit 28.5 Mean Corpuscular Volume 81.1 Mean Corpuscular Hemoglobin 26.7 Mean Corpuscular Hemoglobin 32.9 Concent Red Cell Distribution Width 14.1 Platelet Count 388 Mean Platelet Volume 6.7 Neutrophils (%) (Auto) 92.0 Lymphocytes (%) (Auto) 2.9 Monocytes (%) (Auto) 4.6 Eosinophils (%) (Auto) 0.0 Basophils (%) (Auto) 0.5 Neutrophils # (Auto) 18.2 Lymphocytes # (Auto) 0.6 Monocytes # (Auto) 0.9 Eosinophils # (Auto) 0.0 Basophils # (Auto) 0.1 CBC Comment DIFF FINAL Differential Comment Sodium Level 136 Potassium Level 2.9 Chloride Level 101 Carbon Dioxide Level 22.0 Anion Gap 13 Blood Urea Nitrogen 7 Creatinine 0.34 Estimat Glomerular Filtration 259 Rate Random Glucose 101 Calcium Level 8.0 Date/Time Procedure Status Source Growth 12/23/16 21:45 Aerobic Blood Culture - Preliminary Resulted Blood Peripheral NO GROWTH IN 3 DAYS 12/23/16 21:45 Anaerobic Blood Culture - Preliminary Resulted Blood Peripheral NO GROWTH IN 3 DAYS (Veronica Landry MD R1) Labs Last Impressions Abdomen/Pelvis CT 12/23/161948 Signed Impressions: Service Date/Time: Friday, December 23, 2016 22:32 - CONCLUSION: 1. Mild, generalized colitis. No bowel obstruction. 2. Complex fluid collection has developed in the left pelvic cavity that I believe is most likely a recently hemorrhagic left ovarian cyst. An abscess is considered less likely. 3. Small ascites/free fluid. Benigno Luo MD (Klaudia Brady MD) [facility] Medical Record Reviewed: Yes Interpretation(s) 41-year-old G0 with history of colitis admitted for workup of GI symptoms and found to have free fluid in the pelvis on CT suggestive of hemorrhagic ovarian cyst. Patient's pain is worse on the left per her history. Physical exam nondiagnostic but GI as well as FINANCIAL LEGAL ASSISTANT etiologies for pain are likely given constellation of findings with workup. Beta hCG on admission was less than 1. Labs showing leukocytosis with anemia 9.4, stable, likely dilutional. Patient is on antibiotics by primary team for colitis. Patient denies vaginal symptoms at this time and denies being sexually active. Differential diagnosis for free fluid in pelvis at this time includes ovarian torsion, ruptured ovarian cyst, pelvic inflammatory disease colitis complications. Negative hCG rules out . Sexually transmitted infections cannot be fully ruled out without workup. Primary team has ordered pelvic ultrasound, pending. Bimanual vaginal exam normal. Plan On exam and with review of patient's chart, patient is currently hemodynamically stable; urgent intervention is not indicated at this time. Follow-up pelvic ultrasound to determine possible etiology of free fluid. Recommend workup for gonorrhea/chlamydia, other STIs if indicated; patient denies risk factors for these Ovarian cysts are managed with analgesia and supportive care. Surgical aspiration may be indicated if ovarian torsion or other surgical abdomen etiology presents. Monitor for signs of hemodynamic instability Continue pain management with morphine, other analgesics as needed per primary team Management of current GI symptoms per primary team; currently being managed with IV fluids, antibiotics, GI team consulted by primary team Appreciate consult; will follow-up US results SDW Dr. Marcelino, DW Dr. Brady Admitting diagnosis: colitis, abdominal pain (Veronica Landry MD R1) Collaborating MD Comments Patient seen and examined with resident. Small hemorrhagic ovarian cyst, benign pelvic exam. Recommend TVS/TAS for better visualization. If TVS/TAS are consistent with CT scan would not recommend intervention (Klaudia Brady MD) Veronica Landry MD R1 Dec 26, 2016 12:31 Klaudia Brady MD Dec 26, 2016 16:02
--- NOTE | 2016-12-26 15:00 | HHI.GIFU ---
Subjective Remarks Resting in bed. Still no appetite, taking some liquids. Still with significant abdominal pain and tenderness. No diarrhea. Pelvic US pending. Objective Vitals I&O Vital Signs Date Time Temp Pulse Resp B/P Pulse Ox O2 Delivery O2 Flow Rate FiO2 12/26/16 13:02 98.6 98 18 148/85 99 12/26/16 08:19 98.1 92 18 137/87 96 12/26/16 04:31 99.8 96 18 146/97 99 12/26/16 00:08 99.9 100 18 148/95 98 12/25/16 20:29 96.9 91 18 131/88 100 12/25/16 16:09 99.6 87 18 142/94 96 I/O 12/25/16 12/25/16 12/25/16 12/26/16 12/26/16 12/26/16 07:00 15:00 23:00 07:00 15:00 23:00 Intake Total 480 ml 240 ml Balance 480 ml 240 ml Intake Oral 480 ml 240 ml # Voids 2 1 1 1 # Bowel Movements 1 Laboratory Laboratory Tests Test 12/26/16 06:30 White Blood Count 19.8 Red Blood Count 3.51 Hemoglobin 9.4 Hematocrit 28.5 Mean Corpuscular Volume 81.1 Mean Corpuscular Hemoglobin 26.7 Mean Corpuscular Hemoglobin 32.9 Concent Red Cell Distribution Width 14.1 Platelet Count 388 Mean Platelet Volume 6.7 Neutrophils (%) (Auto) 92.0 Lymphocytes (%) (Auto) 2.9 Monocytes (%) (Auto) 4.6 Eosinophils (%) (Auto) 0.0 Basophils (%) (Auto) 0.5 Neutrophils # (Auto) 18.2 Lymphocytes # (Auto) 0.6 Monocytes # (Auto) 0.9 Eosinophils # (Auto) 0.0 Basophils # (Auto) 0.1 CBC Comment DIFF FINAL Differential Comment Sodium Level 136 Potassium Level 2.9 Chloride Level 101 Carbon Dioxide Level 22.0 Anion Gap 13 Blood Urea Nitrogen 7 Creatinine 0.34 Estimat Glomerular Filtration 259 Rate Random Glucose 101 Calcium Level 8.0 Date/Time Procedure Status Source Growth 12/23/16 21:45 Aerobic Blood Culture - Preliminary Resulted Blood Peripheral NO GROWTH IN 3 DAYS 12/23/16 21:45 Anaerobic Blood Culture - Preliminary Resulted Blood Peripheral NO GROWTH IN 3 DAYS Imaging Last Impressions Abdomen/Pelvis CT 2/21/17 1949 Signed Impressions: Service Date/Time: Friday, December 23, 2016 22:32 - CONCLUSION: 1. Mild, generalized colitis. No bowel obstruction. 2. Complex fluid collection has developed in the left pelvic cavity that I believe is most likely a recently hemorrhagic left ovarian cyst. An abscess is considered less likely. 3. Small ascites/free fluid. Benigno Luo MD Physical Exam HEENT: Normocephalic; atraumatic; no jaundice. CHEST: CTA CARDIAC: RRR. ABDOMEN: Soft, nondistended, moderate diffuse tenderness; no hepatosplenomegaly ; bowel sounds are present in all four quadrants. EXTREMITIES: No clubbing, cyanosis, or edema. SKIN: Normal; no rash; no jaundice. LEAD PASTOR: No focal deficits; alert and oriented times three. Assessment and Plan Plan ASSESSMENT: - Abdominal pain. Abdomen/Pelvis CT (12/23/16)----> 1. Mild, generalized colitis. No bowel obstruction. 2. Complex fluid collection has developed in the left pelvic cavity that I believe is most likely a recently hemorrhagic left ovarian cyst. An abscess is considered less likely. 3. Small ascites/free fluid. WBC 19.8. CARPET WEAVER consulted, Pelvic US pending. Unclear if this of GI or CARPET WEAVER origin. Will await pelvic US and CARPET WEAVER workup. Pt previously had workup for colitis with egd/colonoscopy stool studies. Repeat stool studies pending. - Colitis. Pt with mild generalized colitis on imaging. She was seen by our service in September [address] at that time revealed diffuse wall thickening. Stool studies at that time were negative for cryptosporidium, white blood cells, Giardia, Campylobacter, Shiga toxin, and enteric pathogens. C. difficile was negative. Colonoscopy revealed sigmoid erythema of unclear significance, rectal polyps. Pathology revealed colonic mucosal biopsies without significant histopathologic abnormality, colonic mucosal biopsies with hyperplastic polyp. She was treated with abx and discharged once her symptoms improved. She reports that she never really got better and continued to have decreased appetite, weight loss. No recent travel, suspicious food, abx use. No family hx of IBD. Rpt. Stool studies pending. - Abnormal imaging left pelvic cavity. Complex fluid collection, ?hemorrhagic left ovarian cyst, abscess less likely. She denies any vaginal symptoms such as odor, discharge, or itching. CARPET WEAVER following, pelvic US pending. - Decreased appetite, abnormal weight loss. Ongoing decreased appetite and weight loss ~ 30 lbs since September. - Leukocytosis, fevers. WBC 19.8 - Anemia, normocytic. 9.4/28.5 - Oral Viridiana. - Hypokalemia. - Constipation, chronic. States last bm 5 days ago. PLAN: - MAXIMO - Await Stool for c/s, wbc, giardia, cryptosporidium - Await Pelvic US - Zosyn - Flagyl - PPI - Lactinex - Nystatin - CARPET WEAVER following - Further recommendations to follow after results of above - PT seen and examined by Dr. Herrera and myself and this note is written on his behalf Shea Frank Dec 26, 2016 15:00
--- NOTE | 2016-12-26 17:23 | RADRPT ---
EXAM DATE/TIME: 12/26/2016 15:18 [facility] COMPARISON: CT ABDOMEN & PELVIS W CONTRAST, December 23, 2016, 22:32. INDICATIONS : Pelvic pain. MEDICAL HISTORY : Oral lesions. Pelvic pain. Gout. Fever. Colitis. SURGICAL HISTORY : None. ENCOUNTER: Initial ACUITY: 3 days PAIN SCORE: 10/10 LOCATION: Bilateral pelvis MEASUREMENTS: UTERUS: 6.9 x 3.7 x 4.2 cm ENDOMETRIAL STRIPE: 1 mm RIGHT OVARY: Non visualized LEFT OVARY: Non visualized FINDINGS: UTERUS: The myometrium has homogeneous echotexture without mass. The endometrial cavity is empty. There is a hypoechoic mass in the anterior fundus measuring 2.4 x 2.4 cm characteristic of a fibroid. RIGHT OVARY: Not visualized. There is fluid in the right adnexa. Bowel loops are also demonstrated in the right ad nexa. LEFT OVARY: Not visualized. There is a complex collection in the left adnexa. This correlates with the recent CT scan. MISCELLANEOUS: There is free fluid in the pelvis. CONCLUSION: 1. There appears to be and a fibroid in the anterior fundus measuring 2.4 cm. 2. Complex collection in the left adnexa. Findings suggest PID with a possible tubal ovarian abscess. 3. Free fluid in the pelvis. Noe Valdes MD on December 26, 2016 at 17:18 Board Certified Radiologist. This report was verified electronically.
--- NOTE | 2016-12-26 21:46 | HHI.PR ---
Objective Vital Signs Date Time Temp Pulse Resp B/P Pulse Ox O2 Delivery O2 Flow Rate FiO2 12/26/16 20:07 98.3 85 18 149/86 100 12/26/16 15:34 98.9 84 18 146/96 100 12/26/16 13:02 98.6 98 18 148/85 99 12/26/16 08:19 98.1 92 18 137/87 96 12/26/16 04:31 99.8 96 18 146/97 99 12/26/16 00:08 99.9 100 18 148/95 98 I/O 12/25/16 12/25/16 12/25/16 12/26/16 12/26/16 12/26/16 07:00 15:00 23:00 07:00 15:00 23:00 Intake Total 480 ml 240 ml 480 ml Balance 480 ml 240 ml 480 ml Intake Oral 480 ml 240 ml 480 ml # Voids 2 1 1 1 3 # Bowel Movements 1 Result Diagram: 12/26/16 0630 12/26/16 0630 Imaging Last 24 hours Impressions Pelvis Ultrasound 12/26/16 0000 Signed Impressions: Service Date/Time: Monday, December 26, 2016 15:18 - CONCLUSION: 1. There appears to be and a fibroid in the anterior fundus measuring 2.4 cm. 2. Complex collection in the left adnexa. Findings suggest PID with a possible tubal ovarian abscess. 3. Free fluid in the pelvis. Noe Valdes MD Assessment and Plan Assessment and Plan Pelvic ultrasound is reviewed. Given patient's symptoms along with her long- standing nausea vomiting and inability to tolerate solid foods I do not suspect tubo-ovarian abscess. Patient is not sexually active and has not been sexually active for many months. Pelvic examination was also benign. Patient is presently on antibiotic therapy that would cross over to adequate treatment of PID. Would not record changer assembler at this time. Klaudia Brady MD Dec 26, 2016 21:45
[2016-12-27] MEDS: MORPHINE SULFATE 4 MG/ML INJ IV PUSH PRN ×4 (01:34→23:32)
[2016-12-27] MEDS: SODIUM CHLOR 0.9% 1000 ML INJ 1,000 ML IV SCH ×2 (03:53→18:16)
[2016-12-27] MEDS: PIPERACIL-TAZO 4.5 GM PREMIX 100 ML IV SCH ×4 (03:53→23:32)
[2016-12-27 04:00] VITALS: BP 143/90; PULSE 77; RESP 20; TEMP 98.3; O2SAT 98
[2016-12-27] MEDS: metroNIDAZOLE 500 MG INJ 100 ML IV SCH ×3 (05:06→23:32)
[2016-12-27 07:10] LABS: BICARBONATE 20.5 MEQ/L (21.0-32.0)
[2016-12-27 07:14] LABS: AUTOMATED NEUTROPHIL # 14.8 TH/MM3 (1.8-7.7); BASOPHIL % 0.2 % (0.0-2.0); EOSINOPHIL % 0.2 % (0.0-4.0); HEMATOCRIT 29.2 % (35.0-46.0); HEMO FLAGS DIFF FINAL; LYMPH % 4.4 % (9.0-44.0); LYMPHOCYTE # 0.7 TH/MM3 (1.0-4.8); MEAN CORPUSCULAR HEMOGLOBIN 27.2 PG (27.0-34.0); MONO % 6.1 % (0.0-8.0); NEUT % 89.1 % (16.0-70.0); PLATELET COUNT 461 TH/MM3 (150-450); RED BLOOD COUNT 3.65 MIL/MM3 (4.00-5.30); RED CELL DISTRIBUTION WIDTH 14.3 % (11.6-17.2); WHITE BLOOD COUNT 16.6 TH/MM3 (4.0-11.0)
[2016-12-27 09:00] VITALS: BP 141/90; PULSE 76; RESP 22; TEMP 97.9; O2SAT 99
[2016-12-27] MEDS: SODIUM CHLORIDE 0.9% FLUSH 5 ML FLUSH FLUSH SCH ×2 (09:00→21:00)
[2016-12-27] MEDS: NYSTATIN SUSP 500,000 U/5 ML CUP SWISH-SWAL SCH ×4 (09:15→21:00)
[2016-12-27] MEDS: LACTOBACILLUS ACIDOPHILUS TAB PO SCH ×2 (09:15→21:00)
[2016-12-27] MEDS: ONDANSETRON HCL 4 MG/2 ML VIAL IVP PRN (10:34)
--- NOTE | 2016-12-27 11:18 | HHI.PR ---
Subjective Remarks Follow-up colitis 12/24/16-patient seen and examined, still complain of abdominal pain however denies any nausea and vomiting. No report of diarrhea episodes 12/25/16-patient seen and examined, spiking fevers and complaining of abdominal pain with nausea without any emesis. No BM 12/26/16-patient seen and examined; currently afebrile however still complain of abdominal pain. States she does not feel like eating but denies any nausea or vomiting 12/27/16-patient seen and examined, had one episode of emesis earlier this morning and continue to complain of abdominal pain. Objective Vitals Vital Signs Date Time Temp Pulse Resp B/P Pulse Ox O2 Delivery O2 Flow Rate FiO2 12/27/16 09:00 97.9 76 22 141/90 99 12/27/16 04:00 98.3 77 20 143/90 98 12/26/16 23:00 98.4 78 18 131/87 97 12/26/16 20:07 98.3 85 18 149/86 100 12/26/16 15:34 98.9 84 18 146/96 100 12/26/16 13:02 98.6 98 18 148/85 99 I/O 12/26/16 12/26/16 12/26/16 12/27/16 12/27/16 12/27/16 07:00 15:00 23:00 07:00 15:00 23:00 Intake Total 240 ml 480 ml 120 ml Output Total 600 ml 300 ml Balance 240 ml 480 ml -600 ml -180 ml Intake Oral 240 ml 480 ml 120 ml Output Urine Total 600 ml 300 ml # Voids 1 3 # Bowel Movements 1 1 0 Result Diagram: 12/27/16 0620 12/27/16 0620 Imaging Last Impressions Pelvis Ultrasound 12/26/16 0000 Signed Impressions: Service Date/Time: Monday, December 26, 2016 15:18 - CONCLUSION: 1. There appears to be and a fibroid in the anterior fundus measuring 2.4 cm. 2. Complex collection in the left adnexa. Findings suggest PID with a possible tubal ovarian abscess. 3. Free fluid in the pelvis. Noe Valdes MD Abdomen/Pelvis CT 12/23/161948 Signed Impressions: Service Date/Time: Friday, December 23, 2016 22:32 - CONCLUSION: 1. Mild, generalized colitis. No bowel obstruction. 2. Complex fluid collection has developed in the left pelvic cavity that I believe is most likely a recently hemorrhagic left ovarian cyst. An abscess is considered less likely. 3. Small ascites/free fluid. Benigno Luo MD Objective Remarks GENERAL: NAD SKIN: Warm and dry. HEAD: Normocephalic. EYES: No scleral icterus. No injection or drainage. NECK: Supple, trachea midline. No JVD or lymphadenopathy. CARDIOVASCULAR: Regular rate and rhythm without murmurs, gallops, or rubs. RESPIRATORY: Breath sounds equal bilaterally. No accessory muscle use. GASTROINTESTINAL: Abdomen soft, mildly tender, nondistended. Positive bowel sounds MUSCULOSKELETAL: No cyanosis, or edema. BACK: Nontender without obvious deformity. No CVA tenderness. A/P Problem List: (1) Colitis ICD Code: K52.9 Status: Acute (2) Abdominal pain ICD Code: R10.9 Status: Acute (3) Leukocytosis ICD Code: D72.829 Status: Acute (4) Hypokalemia ICD Code: E87.6 Status: Acute (5) PID (acute pelvic inflammatory disease) ICD Code: N73.0 Status: Acute Assessment and Plan 41 year-old female with Colitis: CT abdomen noted with finding of colitis. Currently on Zosyn and Flagyl 500 mg every 8 IV. Continue with current pain management, IV fluid hydration, pain medication. Appreciate input from gastroenterology PID: Pelvic ultrasound with finding of PID with possible tubo-ovarian abscess, currently on Zosyn and Flagyl. Appreciate input from gynecology Hemorrhagic left ovarian cyst: Per CT abdomen/pelvis finding. H&H stable, pelvic NOTED. APPRECIATE INPUT FROM GYNECOLOGY Lactic acidosis: resolved Hypokalemia : Give potassium 75 mEq 1 now and monitor DVT prophylaxis : SCDs GI prophylaxis: PPI Problem Qualifiers (1) Abdominal pain: Qualified Code: R10.84 - Generalized abdominal pain (2) Leukocytosis: Qualified Code: D72.825 - Bandemia Lauro Oreilly MD Dec 27, 2016 11:18
[2016-12-27] MEDS ORDERED: POTASSIUM CL 40 MEQ/30 ML LIQ UDC PO ONE (12:00)
[2016-12-27 12:56] VITALS: BP 132/75; PULSE 76; RESP 22; TEMP 98.1; O2SAT 98
--- NOTE | 2016-12-27 13:15 | HHI.GIFU ---
Subjective Remarks Resting in bed. States she continues to have nausea, abdominal pain. Did have bowel movement- no blood or mucous. States no improvement in symptoms. Objective Vitals I&O Vital Signs Date Time Temp Pulse Resp B/P Pulse Ox O2 Delivery O2 Flow Rate FiO2 12/27/16 12:56 98.1 76 22 132/75 98 12/27/16 09:00 97.9 76 22 141/90 99 12/27/16 04:00 98.3 77 20 143/90 98 12/26/16 23:00 98.4 78 18 131/87 97 12/26/16 20:07 98.3 85 18 149/86 100 12/26/16 15:34 98.9 84 18 146/96 100 I/O 12/26/16 12/26/16 12/26/16 12/27/16 12/27/16 12/27/16 07:00 15:00 23:00 07:00 15:00 23:00 Intake Total 240 ml 480 ml 120 ml Output Total 600 ml 300 ml Balance 240 ml 480 ml -600 ml -180 ml Intake Oral 240 ml 480 ml 120 ml Output Urine Total 600 ml 300 ml # Voids 1 3 # Bowel Movements 1 1 0 Laboratory Laboratory Tests Test 12/27/16 06:20 White Blood Count 16.6 Red Blood Count 3.65 Hemoglobin 9.9 Hematocrit 29.2 Mean Corpuscular Volume 80.0 Mean Corpuscular Hemoglobin 27.2 Mean Corpuscular Hemoglobin 34.0 Concent Red Cell Distribution Width 14.3 Platelet Count 461 Mean Platelet Volume 6.7 Neutrophils (%) (Auto) 89.1 Lymphocytes (%) (Auto) 4.4 Monocytes (%) (Auto) 6.1 Eosinophils (%) (Auto) 0.2 Basophils (%) (Auto) 0.2 Neutrophils # (Auto) 14.8 Lymphocytes # (Auto) 0.7 Monocytes # (Auto) 1.0 Eosinophils # (Auto) 0.0 Basophils # (Auto) 0.0 CBC Comment DIFF FINAL Differential Comment Sodium Level 137 Potassium Level 3.0 Chloride Level 102 Carbon Dioxide Level 20.5 Anion Gap 15 Blood Urea Nitrogen 6 Creatinine 0.31 Estimat Glomerular Filtration 289 Rate Random Glucose 84 Calcium Level 8.3 Date/Time Procedure Status Source Growth 12/26/16 20:40 Cryptosporidium Exam Resulted Stool Stool Pending 12/26/16 20:40 Stool Pus (VETO) - Final Resulted Stool Stool FEW WBC'S 12/26/16 20:40 Giardia Antigen (VETO) Resulted Stool Stool Pending 12/26/16 20:40 - Final Complete Stool Stool NO ENTERIC PATHOGENS DETECTED BY PCR... 12/26/16 20:40 Cancelled Stool Stool 12/23/16 21:45 Aerobic Blood Culture - Preliminary Resulted Blood Peripheral NO GROWTH IN 4 DAYS 12/23/16 21:45 Anaerobic Blood Culture - Preliminary Resulted Blood Peripheral NO GROWTH IN 4 DAYS Imaging Last Impressions Pelvis Ultrasound 12/26/16 0000 Signed Impressions: Service Date/Time: Monday, December 26, 2016 15:18 - CONCLUSION: 1. There appears to be and a fibroid in the anterior fundus measuring 2.4 cm. 2. Complex collection in the left adnexa. Findings suggest PID with a possible tubal ovarian abscess. 3. Free fluid in the pelvis. Noe Valdes MD Abdomen/Pelvis CT 12/23/16 1949 Signed Impressions: Service Date/Time: Friday, December 23, 2016 22:32 - CONCLUSION: 1. Mild, generalized colitis. No bowel obstruction. 2. Complex fluid collection has developed in the left pelvic cavity that I believe is most likely a recently hemorrhagic left ovarian cyst. An abscess is considered less likely. 3. Small ascites/free fluid. Benigno Luo MD Physical Exam HEENT: Normocephalic; atraumatic; no jaundice. CHEST: CTA CARDIAC: RRR. ABDOMEN: Soft, mildly distended, moderate diffuse tenderness; no hepatosplenomegaly; bowel sounds are present in all four quadrants. EXTREMITIES: No clubbing, cyanosis, or edema. SKIN: Normal; no rash; no jaundice. LINING INSERTER: No focal deficits; alert and oriented times three. Assessment and Plan Plan ASSESSMENT: - Abdominal pain, unclear etiology Abdomen/Pelvis CT (12/23/16)----> 1. Mild, generalized colitis. No bowel obstruction. 2. Complex fluid collection has developed in the left pelvic cavity that I believe is most likely a recently hemorrhagic left ovarian cyst. An abscess is considered less likely. 3. Small ascites/free fluid. WBC 16.6. FORM GRADER consulted, Pelvic US (12/26/16)---> there appears to be a fibroid in the anterior fundus measuring 2.4, complex collection in the left adnexa, findings suggest PID with a possible tubal ovarian abscess, free fluid in the pelvis. Pt previously had workup for colitis with egd/ colonoscopy stool studies- benign pathology, negative stools. Repeat stool studies pending. Cont. Abx, await stool studies. - Colitis. Pt with mild generalized colitis on imaging. She was seen by our service in September [address] at that time revealed diffuse wall thickening. Stool studies at that time were negative for cryptosporidium, white blood cells, Giardia, Campylobacter, Shiga toxin, and enteric pathogens. C. difficile was negative. Colonoscopy revealed sigmoid erythema of unclear significance, rectal polyps. Pathology revealed colonic mucosal biopsies without significant histopathologic abnormality, colonic mucosal biopsies with hyperplastic polyp. She was treated with abx and discharged once her symptoms improved. She reports that she never really got better and continued to have decreased appetite, weight loss. No recent travel, suspicious food, abx use. No family hx of IBD. Rpt. Stool studies pending. - Abnormal imaging left pelvic cavity. Complex fluid collection, ?hemorrhagic left ovarian cyst, abscess less likely. She denies any vaginal symptoms such as odor, discharge, or itching. Pelvic US (12/26/16)---> there appears to be a fibroid in the anterior fundus measuring 2.4, complex collection in the left adnexa, findings suggest PID with a possible tubal ovarian abscess, free fluid in the pelvis. FORM GRADER does not feel that she has tuboovarian abscess and feels that the abx would cross cover for any PID infection. - Decreased appetite, abnormal weight loss. Ongoing decreased appetite and weight loss ~ 30 lbs since September. - Leukocytosis, fevers. WBC 16.6 - Anemia, normocytic. 9.9/29.2 - Oral Viridiana. Nystatin - Hypokalemia. - Constipation, chronic. States last bm 5 days ago. PLAN: - MAXIMO - Await Stool for c/s, wbc, giardia, cryptosporidium - Zosyn - Flagyl - PPI - Lactinex - Nystatin - Celiac panel - FORM GRADER following - Will see how she does with abx and await final stool studies. - Further recommendations to follow after results of above - PT seen and examined by Dr. Herrera and myself and this note is written on his behalf Shea Frank Dec 27, 2016 13:15
[2016-12-27 16:32] VITALS: BP 146/101; PULSE 79; RESP 22; TEMP 99.4; O2SAT 99
[2016-12-27 20:00] VITALS: BP 140/94; PULSE 75; RESP 18; TEMP 98.8; O2SAT 100
[2016-12-28 00:30] VITALS: BP 140/90; PULSE 68; RESP 17; TEMP 99.1; O2SAT 100
[2016-12-28] MEDS: metroNIDAZOLE 500 MG INJ 100 ML IV SCH ×3 (02:49→20:46)
[2016-12-28] MEDS: PIPERACIL-TAZO 4.5 GM PREMIX 100 ML IV SCH ×4 (02:50→20:45)
[2016-12-28 04:00] VITALS: BP_SYST 125; BP_SYST 149; BP_DIAS 68; BP_DIAS 90; PULSE 70; RESP 17; TEMP 98.3; O2SAT 100; O2SAT 99
[2016-12-28] MEDS: SODIUM CHLOR 0.9% 1000 ML INJ 1,000 ML IV SCH ×2 (04:46→13:24)
[2016-12-28] MEDS: MORPHINE SULFATE 4 MG/ML INJ IV PUSH PRN ×3 (05:35→20:46)
[2016-12-28 08:23] VITALS: BP 129/82; PULSE 69; RESP 20; TEMP 97.5; O2SAT 100
[2016-12-28 08:40] LABS: AUTOMATED NEUTROPHIL # 12.4 TH/MM3 (1.8-7.7); BASOPHIL % 0.2 % (0.0-2.0); EOSINOPHIL % 0.3 % (0.0-4.0); HEMATOCRIT 31.3 % (35.0-46.0); HEMO FLAGS DIFF FINAL; LYMPH % 8.2 % (9.0-44.0); LYMPHOCYTE # 1.2 TH/MM3 (1.0-4.8); MEAN CELL VOLUME 79.8 FL (80.0-100.0); MEAN CORPUSCULAR HEMOGLOBIN 26.5 PG (27.0-34.0); MEAN CORPUSCULAR HGB CONC 33.3 % (32.0-36.0); MONO % 6.7 % (0.0-8.0); NEUT % 84.6 % (16.0-70.0); PLATELET COUNT 505 TH/MM3 (150-450); RED BLOOD COUNT 3.92 MIL/MM3 (4.00-5.30); RED CELL DISTRIBUTION WIDTH 14.5 % (11.6-17.2); WHITE BLOOD COUNT 14.6 TH/MM3 (4.0-11.0)
[2016-12-28 09:08] LABS: BICARBONATE 20.1 MEQ/L (21.0-32.0)
[2016-12-28 09:11] LABS: POTASSIUM 2.9 MEQ/L (3.5-5.1)
[2016-12-28] MEDS ORDERED: POTASSIUM CL 40 MEQ/30 ML LIQ UDC PO ONE (10:30)
[2016-12-28] MEDS: NYSTATIN SUSP 500,000 U/5 ML CUP SWISH-SWAL SCH ×4 (10:41→20:47)
[2016-12-28] MEDS: SODIUM CHLORIDE 0.9% FLUSH 5 ML FLUSH FLUSH SCH ×2 (10:41→20:46)
[2016-12-28] MEDS: LACTOBACILLUS ACIDOPHILUS TAB PO SCH ×2 (10:41→20:47)
--- NOTE | 2016-12-28 11:26 | HHI.PR ---
Subjective Remarks Follow-up colitis 12/24/16-patient seen and examined, still complain of abdominal pain however denies any nausea and vomiting. No report of diarrhea episodes 12/25/16-patient seen and examined, spiking fevers and complaining of abdominal pain with nausea without any emesis. No BM 12/26/16-patient seen and examined; currently afebrile however still complain of abdominal pain. States she does not feel like eating but denies any nausea or vomiting 12/27/16-patient seen and examined, had one episode of emesis earlier this morning and continue to complain of abdominal pain. 12/28/16-patient seen and examined, reports some improvement of abdominal pain and WBC trending down and currently afebrile. She did not tolerate liquid potassium this morning Objective Vitals Vital Signs Date Time Temp Pulse Resp B/P Pulse Ox O2 Delivery O2 Flow Rate FiO2 12/28/16 08:23 97.5 69 20 129/82 100 12/28/16 04:00 98.3 70 17 125/68 99 12/28/16 00:30 99.1 68 17 140/90 100 12/27/16 20:00 98.8 75 18 140/94 100 12/27/16 16:32 99.4 79 22 146/101 99 12/27/16 12:56 98.1 76 22 132/75 98 I/O 12/27/16 12/27/16 12/27/16 12/28/16 12/28/16 12/28/16 07:00 15:00 23:00 07:00 15:00 23:00 Intake Total 120 ml 600 ml 920 ml Output Total 300 ml 300 ml 1500 ml Balance -180 ml 300 ml -580 ml Intake Oral 120 ml 600 ml 920 ml Output Urine Total 300 ml 300 ml 1500 ml # Voids 5 # Bowel Movements 0 3 0 Result Diagram: 12/28/16 0756 12/28/16 0756 Objective Remarks GENERAL: NAD SKIN: Warm and dry. HEAD: Normocephalic. EYES: No scleral icterus. No injection or drainage. NECK: Supple, trachea midline. No JVD or lymphadenopathy. CARDIOVASCULAR: Regular rate and rhythm without murmurs, gallops, or rubs. RESPIRATORY: Breath sounds equal bilaterally. No accessory muscle use. GASTROINTESTINAL: Abdomen soft, mildly tender, nondistended. Positive bowel sounds MUSCULOSKELETAL: No cyanosis, or edema. BACK: Nontender without obvious deformity. No CVA tenderness. A/P Problem List: (1) Colitis ICD Code: K52.9 Status: Acute (2) Abdominal pain ICD Code: R10.9 Status: Acute (3) Leukocytosis ICD Code: D72.829 Status: Acute (4) Hypokalemia ICD Code: E87.6 Status: Acute (5) PID (acute pelvic inflammatory disease) ICD Code: N73.0 Status: Acute Assessment and Plan 41 year-old female with Colitis: CT abdomen noted with finding of colitis. Now improving and Currently on Zosyn and Flagyl 500 mg every 8 IV. Continue with current pain management, IV fluid hydration, pain medication. Appreciate input from gastroenterology. C. difficile negative and stool culture for ova and parasite pending PID: Pelvic ultrasound with finding of PID with possible tubo-ovarian abscess, currently on Zosyn and Flagyl. Appreciate input from gynecology Hemorrhagic left ovarian cyst: Per CT abdomen/pelvis finding. H&H stable, pelvic NOTED. APPRECIATE INPUT FROM GYNECOLOGY Lactic acidosis: resolved Hypokalemia : Give potassium 60 mEq 1 now and monitor DVT prophylaxis : SCDs GI prophylaxis: PPI Problem Qualifiers (1) Abdominal pain: Qualified Code: R10.84 - Generalized abdominal pain (2) Leukocytosis: Qualified Code: D72.825 - BandLauro Rosario MD Dec 28, 2016 11:26
[2016-12-28] MEDS ORDERED: POTASSIUM CHLORIDE 10 MEQ CONTROLLED RELEASE TAB PO ONE (11:30)
[2016-12-28 12:32] VITALS: BP 142/91; PULSE 79; RESP 20; TEMP 97.4; O2SAT 98
--- NOTE | 2016-12-28 14:35 | HHI.GIFU ---
Subjective Remarks 41 yo female resting in bed in no apparent distress. Reports she continues to have nausea and abdominal pain. Objective Vitals I&O Vital Signs Date Time Temp Pulse Resp B/P Pulse Ox O2 Delivery O2 Flow Rate FiO2 12/28/16 12:32 97.4 79 20 142/91 98 12/28/16 11:01 13 12/28/16 08:23 97.5 69 20 129/82 100 12/28/16 04:00 98.3 70 17 125/68 99 12/28/16 00:30 99.1 68 17 140/90 100 12/27/16 20:00 98.8 75 18 140/94 100 12/27/16 16:32 99.4 79 22 146/101 99 I/O 12/27/16 12/27/16 12/27/16 12/28/16 12/28/16 12/28/16 07:00 15:00 23:00 07:00 15:00 23:00 Intake Total 120 ml 600 ml 920 ml Output Total 300 ml 300 ml 1500 ml Balance -180 ml 300 ml -580 ml Intake Oral 120 ml 600 ml 920 ml Output Urine Total 300 ml 300 ml 1500 ml # Voids 5 # Bowel Movements 0 3 0 Laboratory Laboratory Tests Test 12/28/16 07:56 White Blood Count 14.6 Red Blood Count 3.92 Hemoglobin 10.4 Hematocrit 31.3 Mean Corpuscular Volume 79.8 Mean Corpuscular Hemoglobin 26.5 Mean Corpuscular Hemoglobin 33.3 Concent Red Cell Distribution Width 14.5 Platelet Count 505 Mean Platelet Volume 6.5 Neutrophils (%) (Auto) 84.6 Lymphocytes (%) (Auto) 8.2 Monocytes (%) (Auto) 6.7 Eosinophils (%) (Auto) 0.3 Basophils (%) (Auto) 0.2 Neutrophils # (Auto) 12.4 Lymphocytes # (Auto) 1.2 Monocytes # (Auto) 1.0 Eosinophils # (Auto) 0.0 Basophils # (Auto) 0.0 CBC Comment DIFF FINAL Differential Comment Sodium Level 137 Potassium Level 2.9 Chloride Level 103 Carbon Dioxide Level 20.1 Anion Gap 14 Blood Urea Nitrogen 4 Creatinine 0.35 Estimat Glomerular Filtration 251 Rate Random Glucose 85 Calcium Level 8.2 Date/Time Procedure Status Source Growth 12/26/16 20:40 Cryptosporidium Exam Resulted Stool Stool Pending 12/26/16 20:40 Stool Pus (VETO) - Final Resulted Stool Stool FEW WBC'S 12/26/16 20:40 Giardia Antigen (VETO) Resulted Stool Stool Pending 12/26/16 20:40 - Final Complete Stool Stool NO ENTERIC PATHOGENS DETECTED BY PCR... 12/26/16 20:40 Cancelled Stool Stool 12/23/16 21:45 Aerobic Blood Culture - Final Complete Blood Peripheral NO GROWTH IN 5 DAYS 12/23/16 21:45 Anaerobic Blood Culture - Final Complete Blood Peripheral NO GROWTH IN 5 DAYS Imaging Last Impressions Pelvis Ultrasound 12/26/16 0000 Signed Impressions: Service Date/Time: Monday, December 26, 2016 15:18 - CONCLUSION: 1. There appears to be and a fibroid in the anterior fundus measuring 2.4 cm. 2. Complex collection in the left adnexa. Findings suggest PID with a possible tubal ovarian abscess. 3. Free fluid in the pelvis. Noe Valdes MD Abdomen/Pelvis CT 12/23/16 194 Signed Impressions: Service Date/Time: Friday, December 23, 2016 22:32 - CONCLUSION: 1. Mild, generalized colitis. No bowel obstruction. 2. Complex fluid collection has developed in the left pelvic cavity that I believe is most likely a recently hemorrhagic left ovarian cyst. An abscess is considered less likely. 3. Small ascites/free fluid. Benigno Luo MD Physical Exam HEENT: PERRLA. Normocephalic; atraumatic; no jaundice. CHEST: CTA CARDIAC: RRR. ABDOMEN: Soft, mildly distended, moderate diffuse tenderness; no hepatosplenomegaly; bowel sounds are present x 4 quadrants. EXTREMITIES: No clubbing, cyanosis, or edema. SKIN: Normal; no rash; no jaundice. COAL SCREENER: No focal deficits; A&O x3. Assessment and Plan Plan ASSESSMENT: - Abdominal pain, unclear etiology. No improvement today. Abdomen/Pelvis CT ()----> 1. Mild, generalized colitis. No bowel obstruction. 2. Complex fluid collection has developed in the left pelvic cavity that I believe is most likely a recently hemorrhagic left ovarian cyst. An abscess is considered less likely. 3. Small ascites/free fluid. WBC 16.6. MANPOWER DEVELOPMENT SPECIALIST MANAGER consulted, Pelvic US (12/26/16)---> there appears to be a fibroid in the anterior fundus measuring 2.4, complex collection in the left adnexa, findings suggest PID with a possible tubal ovarian abscess, free fluid in the pelvis. Pt previously had workup for colitis with egd/ colonoscopy stool studies- benign pathology, negative stools. Repeat stool studies, Cryptosporidium and Giardia pending. Few WBCs in stool. No enteric pathogens detected by PCR. Cont. Abx. - Colitis. Pt with mild generalized colitis on imaging. She was seen by our service in September [address] at that time revealed diffuse wall thickening. Stool studies at that time were negative for cryptosporidium, white blood cells, Giardia, Campylobacter, Shiga toxin, and enteric pathogens. C. difficile was negative. Colonoscopy revealed sigmoid erythema of unclear significance, rectal polyps. Pathology revealed colonic mucosal biopsies without significant histopathologic abnormality, colonic mucosal biopsies with hyperplastic polyp. She was treated with abx and discharged once her symptoms improved. She reports that she never really got better and continued to have decreased appetite, weight loss. No recent travel, suspicious food, abx use. No family hx of IBD. - Abnormal imaging left pelvic cavity. Complex fluid collection, ?hemorrhagic left ovarian cyst, abscess less likely. She denies any vaginal symptoms such as odor, discharge, or itching. Pelvic US (12/26/16)---> there appears to be a fibroid in the anterior fundus measuring 2.4, complex collection in the left adnexa, findings suggest PID with a possible tubal ovarian abscess, free fluid in the pelvis. MANPOWER DEVELOPMENT SPECIALIST MANAGER does not feel that she has tuboovarian abscess and feels that the abx would cross cover for any PID infection. - Decreased appetite, abnormal weight loss. Ongoing decreased appetite and weight loss ~ 30 lbs since September. - Leukocytosis, fevers. WBC 14.6 - Anemia, normocytic. 10.4/31.3 - Oral Viridiana. Nystatin - Hypokalemia. K 2.9 - Constipation, chronic. Had BM today PLAN: -Colonoscopy in AM -NPO after MN -Clear liquids -Obtain consents - Giardia, cryptosporidium stool studies pending - Zosyn - Flagyl - PPI - Lactinex - Nystatin - Celiac panel - MANPOWER DEVELOPMENT SPECIALIST MANAGER following - Will see how she does with abx and await final stool studies. - Further recommendations to follow after results of above PT seen and examined by Dr. Herrera and myself and this note is written on his behalf Yenni Mars Dec 28, 2016 14:35
[2016-12-28] MEDS: ONDANSETRON HCL 4 MG/2 ML VIAL IVP PRN (15:58)
[2016-12-28] MEDS ORDERED: PEG (High)/E-LYTE SOLN 4000 ML BTL PO ONE (16:00)
[2016-12-28 16:47] VITALS: BP 165/116; PULSE 80; RESP 20; TEMP 96.9; O2SAT 99
[2016-12-28] MEDS ORDERED: MAGNESIUM CITRATE SOLN 300 ML BTL PO ONE ×2 (17:00→19:00)
[2016-12-28 20:00] VITALS: BP 165/108; PULSE 70; RESP 18; TEMP 97.9; O2SAT 100
[2016-12-29] VITALS: BP 149/91; PULSE 73; RESP 18; TEMP 98.4; O2SAT 100
[2016-12-29] MEDS: SODIUM CHLOR 0.9% 1000 ML INJ 1,000 ML IV SCH ×2 (00:46→10:15)
[2016-12-29] MEDS: PIPERACIL-TAZO 4.5 GM PREMIX 100 ML IV SCH ×2 (04:51→10:14)
[2016-12-29] MEDS: metroNIDAZOLE 500 MG INJ 100 ML IV SCH ×2 (04:51→12:00)
[2016-12-29] MEDS: MORPHINE SULFATE 4 MG/ML INJ IV PUSH PRN (04:52)
[2016-12-29 05:45] VITALS: BP 146/94; PULSE 74; RESP 16; TEMP 98.3; O2SAT 98
[2016-12-29 07:45] LABS: AUTOMATED NEUTROPHIL # 12.7 TH/MM3 (1.8-7.7); BASOPHIL # 0.1 TH/MM3 (0-0.2); BASOPHIL % 0.6 % (0.0-2.0); EOSINOPHIL # 0.1 TH/MM3 (0-0.4); EOSINOPHIL % 0.5 % (0.0-4.0); HEMO FLAGS DIFF FINAL; LYMPH % 8.5 % (9.0-44.0); LYMPHOCYTE # 1.3 TH/MM3 (1.0-4.8); MEAN CELL VOLUME 81.1 FL (80.0-100.0); MEAN CORPUSCULAR HEMOGLOBIN 26.1 PG (27.0-34.0); MEAN CORPUSCULAR HGB CONC 32.2 % (32.0-36.0); MONO % 6.7 % (0.0-8.0); NEUT % 83.7 % (16.0-70.0); PLATELET COUNT 536 TH/MM3 (150-450); RED BLOOD COUNT 3.82 MIL/MM3 (4.00-5.30); RED CELL DISTRIBUTION WIDTH 14.4 % (11.6-17.2); WHITE BLOOD COUNT 15.2 TH/MM3 (4.0-11.0)
[2016-12-29 08:07] VITALS: BP 142/89; PULSE 70; RESP 20; TEMP 98.6; O2SAT 95
[2016-12-29 08:11] LABS: BICARBONATE 21.5 MEQ/L (21.0-32.0)
[2016-12-29] MEDS: NYSTATIN SUSP 500,000 U/5 ML CUP SWISH-SWAL SCH ×3 (09:00→13:00)
[2016-12-29] MEDS: LACTOBACILLUS ACIDOPHILUS TAB PO SCH (10:14)
[2016-12-29] MEDS: SODIUM CHLORIDE 0.9% FLUSH 5 ML FLUSH FLUSH SCH (10:14)
--- NOTE | 2016-12-29 11:11 | HHI.PR ---
Subjective Remarks Follow-up colitis 12/24/16-patient seen and examined, still complain of abdominal pain however denies any nausea and vomiting. No report of diarrhea episodes 12/25/16-patient seen and examined, spiking fevers and complaining of abdominal pain with nausea without any emesis. No BM 12/26/16-patient seen and examined; currently afebrile however still complain of abdominal pain. States she does not feel like eating but denies any nausea or vomiting 12/27/16-patient seen and examined, had one episode of emesis earlier this morning and continue to complain of abdominal pain. 12/28/16-patient seen and examined, reports some improvement of abdominal pain and WBC trending down and currently afebrile. She did not tolerate liquid potassium this morning 12/29/16-patient seen and examined, currently nothing by mouth pending colonoscopy this morning. Denies any significant abdominal pain. Objective Vitals Vital Signs Date Time Temp Pulse Resp B/P Pulse Ox O2 Delivery O2 Flow Rate FiO2 12/29/16 08:07 98.6 70 20 142/89 95 12/29/16 05:45 98.3 74 16 146/94 98 12/29/16 00:00 98.4 73 18 149/91 100 12/28/16 20:00 97.9 70 18 165/108 100 12/28/16 16:47 96.9 80 20 165/116 99 12/28/16 12:32 97.4 79 20 142/91 98 I/O 12/28/16 12/28/16 12/28/16 12/29/16 12/29/16 12/29/16 07:00 15:00 23:00 07:00 15:00 23:00 Intake Total 920 ml 480 ml Output Total 1500 ml Balance -580 ml 480 ml Intake Oral 920 ml 480 ml Output Urine Total 1500 ml # Voids 3 9 2 # Bowel Movements 0 0 1 2 Result Diagram: 12/29/1671512/29/16715 Imaging Last Impressions Pelvis Ultrasound 12/26/16 0000 Signed Impressions: Service Date/Time: Monday, December 26, 2016 15:18 - CONCLUSION: 1. There appears to be and a fibroid in the anterior fundus measuring 2.4 cm. 2. Complex collection in the left adnexa. Findings suggest PID with a possible tubal ovarian abscess. 3. Free fluid in the pelvis. Noe Valdes MD Abdomen/Pelvis CT 12/23/161948 Signed Impressions: Service Date/Time: Friday, December 23, 2016 22:32 - CONCLUSION: 1. Mild, generalized colitis. No bowel obstruction. 2. Complex fluid collection has developed in the left pelvic cavity that I believe is most likely a recently hemorrhagic left ovarian cyst. An abscess is considered less likely. 3. Small ascites/free fluid. Benigno Luo MD Objective Remarks GENERAL: NAD SKIN: Warm and dry. HEAD: Normocephalic. EYES: No scleral icterus. No injection or drainage. NECK: Supple, trachea midline. No JVD or lymphadenopathy. CARDIOVASCULAR: Regular rate and rhythm without murmurs, gallops, or rubs. RESPIRATORY: Breath sounds equal bilaterally. No accessory muscle use. GASTROINTESTINAL: Abdomen soft, nontender, nondistended. Positive bowel sounds MUSCULOSKELETAL: No cyanosis, or edema. BACK: Nontender without obvious deformity. No CVA tenderness. A/P Problem List: (1) Colitis ICD Code: K52.9 Status: Acute (2) Abdominal pain ICD Code: R10.9 Status: Acute (3) Leukocytosis ICD Code: D72.829 Status: Acute (4) Hypokalemia ICD Code: E87.6 Status: Acute (5) PID (acute pelvic inflammatory disease) ICD Code: N73.0 Status: Acute Assessment and Plan 41 year-old female with Colitis: CT abdomen noted with finding of colitis. Now improving and Currently on Zosyn and Flagyl 500 mg every 8 IV. Continue with current pain management, IV fluid hydration, pain medication. Appreciate input from gastroenterology and plan for colonoscopy today 12/29/16. If colonoscopy negative with discharge home.. C. difficile negative and stool culture for ova and parasite pending PID: Pelvic ultrasound with finding of PID with possible tubo-ovarian abscess, currently on Zosyn and Flagyl. Appreciate input from gynecology Hemorrhagic left ovarian cyst: Per CT abdomen/pelvis finding. H&H stable, pelvic NOTED. APPRECIATE INPUT FROM GYNECOLOGY Lactic acidosis: resolved Hypokalemia : Give potassium 60 mEq 1 now and monitor DVT prophylaxis : SCDs GI prophylaxis: PPI Problem Qualifiers (1) Abdominal pain: Qualified Code: R10.84 - Generalized abdominal pain (2) Leukocytosis: Qualified Code: D72.825 - BandLauro Rosario MD Dec 29, 2016 11:11
[2016-12-29] MEDS ORDERED: METR-1 PO (11:15)
[2016-12-29] MEDS ORDERED: LACTCHW3 CHEW (11:15)
[2016-12-29] MEDS ORDERED: CIPR-9 PO (11:15)
--- NOTE | 2016-12-29 11:17 | HHI.DS ---
Discharge Summary Admission Date Dec 24, 2016 at 00:14 Discharge Date: Dec 29, 2016 Admitting Diagnosis colitis, abdominal pain (1) Colitis ICD Code: K52.9 (2) Abdominal pain ICD Code: R10.9 (3) Leukocytosis ICD Code: D72.829 (4) Hypokalemia ICD Code: E87.6 (5) PID (acute pelvic inflammatory disease) ICD Code: N73.0 Procedures Colonoscopy Brief History - From Admission Ms. Carrera is a 41 year-old with a past medical history of colitis and chronic abdominal pain who presents to the emergency room on 12/23/16 for evaluation of abdominal pain, nausea, and vomiting. She has been newly diagnosed with colitis but has not followed up with a stroke neurologist as an outpatient. CT of abdomen with oral and IV contrast showed mild generalized colitis with no bowel obstruction. Complex fluid collection in the left pelvic cavity most likely related to hemorrhagic left ovarian cyst and less likely an abscess. Small ascites/free fluid. The patient is seen and evaluated in her hospital room. She reports a 3 day history of diffuse abdominal pain that is severe with associated nausea and vomiting. She also reports pain with urination that makes her feel "like (her) my insides are going to come out". She also reports severe unintentional weight loss of 30 pounds over six-month period time accompanied by loss of appetite. She denies any bright red stool, diarrhea, or constipation. She reports chronic shortness of breath. She feels like she's been having fevers over the past few days but has not taken her temperature. She reports history of ovarian cyst 09/2016. She denies history of hypertension, diabetes mellitus, COPD, coronary artery disease, kidney problems, liver problems, thyroid problems, seizures, cancer, problems with blood clots such as DVT, PE, or CVA. . CBC/BMP: 12/29/16 0716 12/29/16 0716 Significant Findings Laboratory Tests Test 12/27/16 12/28/16 12/29/16 06:20 07:56 07:16 White Blood Count 16.6 TH/MM3 14.6 TH/MM3 15.2 TH/MM3 (4.0-11.0) (4.0-11.0) (4.0-11.0) Red Blood Count 3.65 MIL/MM3 3.92 MIL/MM3 3.82 MIL/MM3 (4.00-5.30) (4.00-5.30) (4.00-5.30) Hemoglobin 9.9 GM/DL 10.4 GM/DL 10.0 GM/DL (11.6-15.3) (11.6-15.3) (11.6-15.3) Hematocrit 29.2 % 31.3 % 31.0 % (35.0-46.0) (35.0-46.0) (35.0-46.0) Platelet Count 461 TH/MM3 505 TH/MM3 536 TH/MM3 (150-450) (150-450) (150-450) Mean Platelet Volume 6.7 FL 6.5 FL 6.5 FL (7.0-11.0) (7.0-11.0) (7.0-11.0) Neutrophils (%) (Auto) 89.1 % 84.6 % 83.7 % (16.0-70.0) (16.0-70.0) (16.0-70.0) Lymphocytes (%) (Auto) 4.4 % 8.2 % 8.5 % (9.0-44.0) (9.0-44.0) (9.0-44.0) Neutrophils # (Auto) 14.8 TH/MM3 12.4 TH/MM3 12.7 TH/MM3 (1.8-7.7) (1.8-7.7) (1.8-7.7) Lymphocytes # (Auto) 0.7 TH/MM3 (1.0-4.8) Monocytes # (Auto) 1.0 TH/MM3 1.0 TH/MM3 1.0 TH/MM3 (0-0.9) (0-0.9) (0-0.9) Potassium Level 3.0 MEQ/L 2.9 MEQ/L 3.0 MEQ/L (3.5-5.1) (3.5-5.1) (3.5-5.1) Carbon Dioxide Level 20.5 MEQ/L 20.1 MEQ/L (21.0-32.0) (21.0-32.0) Blood Urea Nitrogen 6 MG/DL (7-18) 4 MG/DL (7-18) 2 MG/DL (7-18) Creatinine 0.31 MG/DL 0.35 MG/DL 0.31 MG/DL (0.50-1.00) (0.50-1.00) (0.50-1.00) Calcium Level 8.3 MG/DL 8.2 MG/DL 8.1 MG/DL (8.5-10.1) (8.5-10.1) (8.5-10.1) Mean Corpuscular Volume 79.8 FL (80.0-100.0) Mean Corpuscular Hemoglobin 26.5 PG 26.1 PG (27.0-34.0) (27.0-34.0) Imaging Last Impressions Pelvis Ultrasound 12/26/16 0000 Signed Impressions: Service Date/Time: Monday, December 26, 2016 15:18 - CONCLUSION: 1. There appears to be and a fibroid in the anterior fundus measuring 2.4 cm. 2. Complex collection in the left adnexa. Findings suggest PID with a possible tubal ovarian abscess. 3. Free fluid in the pelvis. Noe Valdes MD Abdomen/Pelvis CT 12/23/16 194 Signed Impressions: Service Date/Time: Friday, December 23, 2016 22:32 - CONCLUSION: 1. Mild, generalized colitis. No bowel obstruction. 2. Complex fluid collection has developed in the left pelvic cavity that I believe is most likely a recently hemorrhagic left ovarian cyst. An abscess is considered less likely. 3. Small ascites/free fluid. Benigno Luo MD PE at Discharge GENERAL: NAD SKIN: Warm and dry. HEAD: Normocephalic. EYES: No scleral icterus. No injection or drainage. NECK: Supple, trachea midline. No JVD or lymphadenopathy. CARDIOVASCULAR: Regular rate and rhythm without murmurs, gallops, or rubs. RESPIRATORY: Breath sounds equal bilaterally. No accessory muscle use. GASTROINTESTINAL: Abdomen soft, nontender, nondistended. Positive bowel sounds MUSCULOSKELETAL: No cyanosis, or edema. BACK: Nontender without obvious deformity. No CVA tenderness. Hospital Course Patient was admitted and diagnosed with colitis for which was seen on IV antibiotics including Zosyn and Flagyl will consultation to both gastroenterology, general surgery. A colonoscopy was performed on 12/29/16. He was also treated for PID per recommendation from gynecology, was consulted. Patient diet was advanced accordingly and all IV antibiotics were switched to by mouth prior to discharge. All electrolyte abnormalities including hypokalemia were corrected accordingly. DVT and GI prophylaxis were provided. PT was consulted. Prior to discharge, patient condition improved and bilateral remained stable. Pt Condition on Discharge: Stable Discharge Disposition: Discharge Home Discharge Time: <= 30 minutes Discharge Instructions DIET: Follow Instructions for: Full Liquid Diet Activities you can perform: Regular-No Restrictions Follow up Referrals: Gastroenterology PCP Follow-up - 1 Week New Medications: Ciprofloxacin (Cipro) 500 Mg Tab 500 MG PO BID Infection #10 Ref 0 TAB Lactobacillus Acidophilus (Lactinex) 1 Chew 1 TAB CHEW DAILY Nutritional Supplement #30 Ref 0 TAB Metronidazole (Flagyl) 500 Mg Tab 500 MG PO TID Infection #30 Ref 0 TAB Lauro Oreilly MD Dec 29, 2016 11:17 500 MG PO BID Infection #10 Ref 0 TAB Lactobacillus Acidophilus (Lactinex) 1 Chew 1 TAB CHEW DAILY Nutritional Supplement #30 Ref 0 TAB Metronidazole (Flagyl) 500 Mg Tab 500 MG PO TID Infection #30 Ref 0 TAB Lauro Oreilly MD Dec 29, 2016 11:17
[2016-12-29] MEDS ORDERED: PROPOFOL 200 MG/20 ML AMP IV ONE (12:00)
[2016-12-29 12:01] VITALS: BP 142/89; PULSE 70; RESP 20; TEMP 98.6; O2SAT 95
--- NOTE | 2016-12-29 13:24 | PD.PROCEDR ---
GI Procedure REFERRING PHYSICIAN Yissel PROCEDURE PERFORMED Colonoscopy with biopsy INDICATION FOR PROCEDURE Abdominal pain PROCEDURE: The procedure, risks and benefits were discussed with Ms. Carrera and informed consent was obtained. Anesthesia sedated her with Diprivan. She was placed in the left lateral decubitus position. Colonoscopy: The Pentax videoscope was introduced through the rectum and advanced to cecum where the ileocecal valve and appendiceal orifice were identified. Retroflexion was performed in the rectum. Colonic prep was fair FINDINGS: Colonic withdrawal time greater than 6 minutes as the scope was slowly withdrawn colonic mucosa was carefully inspected the patient was noted to have 2 small polyps in the rectal region measuring 2-3 mm both were excised using cold biopsy forceps colonic examination was otherwise unremarkable so as retroflexion in rectal examination ESTIMATED BLOOD LOSS: None SPECIMENS REMOVED: Rectal biopsies COMPLICATIONS: None IMPRESSION: Colon polyps Otherwise normal colonoscopy PLAN: Await biopsy Advanced diet Colonoscopy 5 years Ed Reyna MD Dec 29, 2016 13:24
[2016-12-29] MEDS ORDERED: DO NOT ADM ANY ANTICOAGULANT DRUGS XX PRN (14:15)
[2016-12-29 15:07] VITALS: BP 157/96; PULSE 74; RESP 20; TEMP 98.8; O2SAT 98
[2016-12-31 15:52] LABS: ENDOMYSIAL AB TITER ND (<1:5); IGA SERUM 120 mg/dL (81-463); TISSUE TRANSGLUTAMINASE AB LESS THAN 1 U/mL (()); TISSUE TRANSGLUTAMINASE AB IGG ND U/mL (())
== END 2016-12-29 15:40 | disposition home or self-care (01) | DRG 392 ==
LOC: NEPE 19:24 → NEDA 12-24 00:14 → N05B 12-24 02:12
PROVIDERS: ADMIT Hospitalist; ATTEND Hospitalist
PROC: 0DBP8ZX Excision of Rectum, Via Natural or Artificial Opening Endoscopic, Diagnostic (ICD-10-PCS; principal; 2016-12-29 12:45)
DX: K52.9 Noninfective gastroenteritis and colitis, unspecified (principal); E87.2 Acidosis; B37.0 Candidal stomatitis; N73.0 Acute parametritis and pelvic cellulitis; E87.6 Hypokalemia; D50.9 Iron deficiency anemia, unspecified; F17.210 Nicotine dependence, cigarettes, uncomplicated; K59.00 Constipation, unspecified; N83.202 Unspecified ovarian cyst, left side; K62.1 Rectal polyp
CPT/HCPCS: 74177; 76830; 76856; 80048; 80053; 81001; 82784; 83516; 83605; 83690; 84702; 84703; 85007; 85025; 85027; 85610; 85730; 87040; 87205; 87328; 87329; 87506; 88305; 96361; 96365; 96375; J2270; J2405; J2543; J3480; J7030; Q9963; Q9967

== ENCOUNTER 2017-07-06 02:56 | Inpatient (IN) | payer SELFPAY ==
[~2017-07-06] VITALS: Ht 162.6 cm; Wt 40.1 kg
[2017-07-06] VITALS (8 sets, daily range): BP systolic 112–146; BP diastolic 71–90; PULSE 70–87; RESP 12–20; TEMP 96.9–99.5; O2SAT 96–100
[~2017-07-06 02:56] MED LIST changes: +CIPR-9 PO; -DICY10 PO; +LACTCHW3 CHEW; +METR-1 PO; -PROM1SUP7 RECTAL; -ZOFR4TAB3 SL
[2017-07-06] MEDS ORDERED: ONDANSETRON HCL 4 MG/2 ML VIAL ONE (03:00)
[2017-07-06] MEDS ORDERED: POTA10CA PO (03:08)
[2017-07-06] MEDS ORDERED: ONDANSETRON HCL 4 MG/2 ML VIAL IV ONE (03:15)
[2017-07-06] MEDS ORDERED: SODIUM CHLOR 0.9% 1000 ML INJ 1,000 ML IV ONE (03:15)
[2017-07-06 03:25] LABS: AUTOMATED NEUTROPHIL # 14.8 TH/MM3 (1.8-7.7); BASOPHIL # 0.1 TH/MM3 (0-0.2); BASOPHIL % 0.7 % (0.0-2.0); EOSINOPHIL # 0.1 TH/MM3 (0-0.4); EOSINOPHIL % 0.6 % (0.0-4.0); HEMATOCRIT 39.8 % (35.0-46.0); HEMO FLAGS DIFF FINAL; LYMPH % 12.5 % (9.0-44.0); LYMPHOCYTE # 2.3 TH/MM3 (1.0-4.8); MEAN CELL VOLUME 84.3 FL (80.0-100.0); MEAN CORPUSCULAR HEMOGLOBIN 28.3 PG (27.0-34.0); MEAN CORPUSCULAR HGB CONC 33.5 % (32.0-36.0); MONO % 4.4 % (0.0-8.0); NEUT % 81.8 % (16.0-70.0); PLATELET COUNT 330 TH/MM3 (150-450); RED BLOOD COUNT 4.73 MIL/MM3 (4.00-5.30); RED CELL DISTRIBUTION WIDTH 16.3 % (11.6-17.2); WHITE BLOOD COUNT 18.1 TH/MM3 (4.0-11.0)
--- NOTE | 2017-07-06 03:51 | PD ---
HPI Chief Complaint: Abdominal Pain Time Seen by Provider: 03:05 Travel History International Travel<30 days: No Contact w/Intl Traveler<30days: No Traveled to known affect area: No History of Present Illness HPI The patient is a 42 year old female who presents to the [facility] emergency department with a history of abdominal pain that began again 2 hours prior to arrival. She reports that the pain as a cramping sensation that is 10 out of 10 in severity. She reports that the pain is similar to when she's had colitis in the past. She reports that she's had nausea and vomiting 15 times prior to arrival. She reports that she last moved her bowels yesterday. She denies having any blood in her emesis or blood in her stool. She reports that she has not been able to follow-up with a summer camp counselor as an outpatient since originally being diagnosed with colitis in September 2016. She has also not followed up with a primary care physician or newspaper copy editor. From reviewing the patient's electronic medical record she was last admitted to the hospital related to colitis in December 2016. The patient was also diagnosed with a possible adnexal mass versus abscess. Gynecology saw her in consultation and recommended that she completed a course of antibiotic for possible PID and the ultrasound came back with an abnormality suspicious for PID. She denies any known recent fevers, cough, congestion, neck pain, chest pain, shortness of breath, urinary symptoms, or neurologic symptoms. LMP: Last week. PCP: none. GI: none. PFSH Past Medical History Narrative Medical The patient's past medical history is significant for hypokalemia, colitis, gout , history of an ovarian cysts, history of PID diagnosed during December 2016 admission. Blood Disorders: No Anxiety: No Depression: No Cancer: No Cardiovascular Problems: No Diminished Hearing: No Endocrine: No (family hx(brother)) Gastrointestinal Disorders: Yes (colitis) Gout: Yes Genitourinary: No Immune Disorder: No Musculoskeletal: No Neurologic: No Psychiatric: No Reproductive: No Respiratory: No Tetanus Vaccination: < 5 Years ?: Not LMP: 06/26/2017 : 0 Para: 0 Past Surgical History Narrative Surgical The patient's past surgical history is reportedly none. Surgical History: No Previous Surgery Other Surgery: No Social History Alcohol Use: No Tobacco Use: Yes (1ppd) Substance Use: Yes (marijuana yesterday, usually 1 time per week) Allergies-Medications (Allergen,Severity, Reaction): Coded Allergies: No Known Allergies (Verified , 12/23/16) Reported Meds & Prescriptions Reported Meds & Active Scripts Active Reported Potassium Chloride ER (Potassium Chloride) 10 Meq Cap 1 Tab PO DAILY Review of Systems Except as stated in HPI: all other systems reviewed are Neg General / Constitutional: No: Fever Eyes: No: Visual changes HENT: No: Headaches Cardiovascular: No: Chest Pain or Discomfort Respiratory: No: Shortness of Breath Gastrointestinal: Positive: Nausea, Vomiting, No: Abdominal Pain Genitourinary: No: Dysuria Musculoskeletal: No: Pain Skin: No Rash Neurologic: No: Weakness Psychiatric: No: Depression Endocrine: No: Polydipsia Hematologic/Lymphatic: No: Easy Bruising Physical Exam Narrative General: The patient is a well-developed thin appearing female, uncomfortable appearing on examination, writhing around in the bed Head and Neck exam: Head is normocephalic atraumatic. Eyes: EOMI, pupils are equal round and reactive to light. Nose: Midline septum with pink mucous membranes Mouth: Dentition unremarkable. Moist mucus membranes. Posterior oropharynx is not erythematous. No tonsillar hypertrophy. Uvula midline. Airway patent. Neck: No palpable lymphadenopathy. No nuchal rigidity. No thyromegaly. Cardiovascular: Regular rate and rhythm without murmurs, gallops, or rubs. Lungs: Clear to auscultation bilaterally. No wheezes, rhonchi, or rales. Abdomen: Soft, with tenderness on palpation that is most prominent in bilateral lower quadrants of the abdomen, however she has mild tenderness on palpation of bilateral upper quadrants that is also elicited on palpation. No guarding, rebound, or rigidity. Normal bowel sounds are audible. No tenderness specifically palpation of McBurney's point, negative Suarez's sign. Extremities: No clubbing, cyanosis, or edema. 2+ pulses in all 4 extremities. Back: No costovertebral angle tenderness to palpation. Neurologic Exam: Grossly nonfocal. Skin Exam: No rash noted. Intact skin that is warm and dry. Data Data Last Documented VS Vital Signs Date Time Temp Pulse Resp B/P (MAP) Pulse Ox O2 Delivery O2 Flow Rate FiO2 07/06/17 06:38 70 12 116/71 (86) 100 Room Air 07/06/17 03:00 97.7 Orders Orders Ondansetron Inj (Zofran Inj) (07/06/17 03:00) Complete Blood Count With Diff (07/06/17 03:05) Comprehensive Metabolic Panel (07/06/17 03:05) C-Reactive Protein (Crp) (07/06/17 03:05) Lipase (07/06/17 03:05) Urinalysis - C+S If Indicated (07/06/17 03:05) Westergren Sedimentation Rate (07/06/17 03:05) Magnesium (Mg) (07/06/17 03:05) Iv Access Insert/Monitor (07/06/17 03:05) Ecg Monitoring (07/06/17 03:05) Oximetry (07/06/17 03:05) Ed Urine Pregnancytest Poc (07/06/17 03:05) Sodium Chlor 0.9% 1000 Ml Inj (Ns 1000 M (07/06/17 03:15) Ondansetron Inj (Zofran Inj) (07/06/17 03:15) Thyroid Stimulating Hormone (07/06/17 03:13) Ketorolac Inj (Toradol Inj) (07/06/17 04:00) Drug Screen, Random Urine (07/06/17 03:51) Lactic Acid Sepsis Protocol (07/06/17 03:54) Ketorolac Inj (Toradol Inj) (07/06/17 05:00) Sodium Chlorid 0.9% 500 Ml Inj (Ns 500 M (07/06/17 05:00) Prochlorperazine Inj (Compazine Inj) (07/06/17 05:00) Alcohol (Ethanol) (07/06/17 05:07) Ct Abd/Pel W Iv Contrast(Rout) (07/06/17 05:15) Iohexol 350 Inj (Omnipaque 350 Inj) (07/06/17 05:57) Morphine Inj (Morphine Inj) (07/06/17 06:15) Admit Order (Ed Use Only) (07/06/17 06:46) Consult Gynecology (07/06/17 ) Us Pelvis Comp Hardboard Grinder/Non-Preg (07/06/17 06:46) Piperacil-Tazo 3.375 Gm Premix (Zosyn 3. (07/06/17 07:00) Vancomycin Inj (Vancomycin Inj) (07/06/17 07:00) Blood Culture (07/06/17 06:48) Labs Laboratory Tests Test 07/06/17 03:13 07/06/17 04:10 07/06/17 04:52 07/06/17 05:07 White Blood Count 18.1 TH/MM3 Red Blood Count 4.73 MIL/MM3 Hemoglobin 13.4 GM/DL Hematocrit 39.8 % Mean Corpuscular Volume 84.3 FL Mean Corpuscular Hemoglobin 28.3 PG Mean Corpuscular Hemoglobin Concent 33.5 % Red Cell Distribution Width 16.3 % Platelet Count 330 TH/MM3 Mean Platelet Volume 8.2 FL Neutrophils (%) (Auto) 81.8 % Lymphocytes (%) (Auto) 12.5 % Monocytes (%) (Auto) 4.4 % Eosinophils (%) (Auto) 0.6 % Basophils (%) (Auto) 0.7 % Neutrophils # (Auto) 14.8 TH/MM3 Lymphocytes # (Auto) 2.3 TH/MM3 Monocytes # (Auto) 0.8 TH/MM3 Eosinophils # (Auto) 0.1 TH/MM3 Basophils # (Auto) 0.1 TH/MM3 CBC Comment DIFF FINAL Differential Comment Erythrocyte Sedimentation Rate 1 mm/hr Lactic Acid Level 1.7 mmol/L Urine Color YELLOW Urine Turbidity HAZY Urine pH 8.0 Urine Specific [place] 1.018 Urine Protein TRACE mg/dL Urine Glucose (UA) NEG mg/dL Urine Ketones 40 mg/dL Urine Occult Blood NEG Urine Nitrite NEG Urine Bilirubin NEG Urine Urobilinogen LESS THAN 2.0 MG/DL Urine Leukocyte Esterase NEG Urine RBC 2 /hpf Urine WBC 1 /hpf Urine Squamous Epithelial Cells 5 /hpf Urine Hyaline Casts 1 /lpf Urine Mucus FEW /lpf Microscopic Urinalysis Comment CULT NOT INDICATED Urine Opiates Screen NEG Urine Barbiturates Screen NEG Urine Amphetamines Screen NEG Urine Benzodiazepines Screen NEG Urine Cocaine Screen NEG Urine Cannabinoids Screen POS Blood Urea Nitrogen 6 MG/DL Creatinine 0.58 MG/DL Random Glucose 118 MG/DL Total Protein 6.4 GM/DL Albumin 4.0 GM/DL Calcium Level 8.4 MG/DL Magnesium Level 1.9 MG/DL Alkaline Phosphatase 43 U/L Aspartate Amino Transf (AST/SGOT) 13 U/L Alanine Aminotransferase (ALT/SGPT) 17 U/L Total Bilirubin 0.2 MG/DL Sodium Level 143 MEQ/L Potassium Level 3.5 MEQ/L Chloride Level 111 MEQ/L Carbon Dioxide Level 21.9 MEQ/L Anion Gap 10 MEQ/L Estimat Glomerular Filtration Rate 139 ML/MIN C-Reactive Protein LESS THAN 0.29 MG/DL Lipase 112 U/L Thyroid Stimulating Hormone 3rd Gen 1.760 uIU/ML Ethyl Alcohol Level LESS THAN 3 MG/DL MDM Medical Decision Making Medical Screen Exam Complete: Yes Emergency Medical Condition: Yes Medical Record Reviewed: Yes Differential Diagnosis Recurrent colitis, versus cyclic vomiting syndrome, versus marijuana induced vomiting syndrome, versus gastroparesis, versus PID, versus ovarian cyst Narrative Course During the course of the patients emergency department visit, the patients history, examination, and differential diagnosis were reviewed with the patient. The patient had IV access obtained and blood work sent for analysis. A CT scan of the abdomen and pelvis was ordered The patient was initially provided Toradol for pain, Zofran for nausea, normal saline IV fluids. The patients laboratory studies were reviewed and remarkable for white count of 18.1, hemoglobin 13.4, platelets 3:30 with 81.8 neutrophils, sedimentation rate is 1. CMP is remarkable for a chloride of 111, glucose 118, lactic acid 1.7, calcium 8.4, AST 13, alkaline phosphatase is 43, C-reactive protein is less than 0.29, lipase 112, TSH 1.76, urinalysis shows 40 ketones otherwise unremarkable. Urine drug screen is positive for THC, alcohol less than 3. CT scan of the abdomen and pelvis shows a multiloculated cystic mass and/or hydrosalpinx of the left adnexa, larger than before. No high-grade acute inflammatory changes are demonstrated, trace free fluid, mildly enlarged and now fatty infiltrated liver, no obstruction or inflammatory changes are seen in the GI tract. An ultrasound of the pelvis was ordered. The patient's case was discussed with Dr. Waldrop the hospitalist. He did agree to admit the patient to the [facility] service. A gynecology consultation will be placed. The patient had continued pain and was given morphine 4 mg IV, Compazine 5 mg IV , patient was covered with broad-spectrum antibiotics after blood cultures 2 were drawn. The patient was given vancomycin 1 g IV, Zosyn 3.375 g IV. The patients results were discussed with the patient, including the plan of care. I explained that further testing and/ or monitoring is indicated based on the patients history, examination, and/ or laboratory findings. Therefore, I recommended admission for additional evaluation. The patient expressed understanding and was agreeable with this plan. The patient was admitted to the hospital in stable condition and sent to a bed under the care of the [facility] service. Physician Communication Physician Communication The patient's case was discussed with Dr. Waldrop as written above in the ED course. Diagnosis Primary Impression: Abdominal pain Qualified Codes: R10.84 - Generalized abdominal pain Additional Impression: Adnexal mass Admitting Information Admitting Physician Requests: Admit Karla Young MD Jul 06, 2017 03:51
[2017-07-06] MEDS ORDERED: KETOROLAC TROMETHAMINE 30 MG/ML (IVP) VIAL IV PUSH ONE ×2 (04:00→05:00)
[2017-07-06 05:00] LABS: ALKALINE PHOSPHATASE 43 U/L (45-117); TOTAL BILIRUBIN ADULT 0.2 MG/DL (0.2-1.0)
[2017-07-06] MEDS ORDERED: PROCHLORPERAZINE INJ 10 MG/2 ML VIAL IV PUSH ONE (05:00)
[2017-07-06] MEDS ORDERED: SODIUM CHLORID 0.9% 500 ML INJ 500 ML IV ONE (05:00)
[2017-07-06 05:19] LABS: BLOOD, URINE NEG (NEG); COMMENT (UR) CULT NOT INDICATED; CULTURE IF INDICATED CULT NOT INDICATED; GLUCOSE,URINE NEG (NEG); HYALINE CAST, URINE 1 /lpf (RARE); KETONE, URINE 40 mg/dL (NEG); MUCUS URINE FEW /lpf (OCC); NITRITE,URINE NEG (NEG); SQUAMOUS EPITHELIAL CELL URINE 5 /hpf (0-5); URINE COLOR YELLOW (YELLW/STRAW)
[2017-07-06 05:46] LABS: ALT (GPT) 17 U/L (10-53); ANION GAP 10 MEQ/L (5-15); AST (GOT) 13 U/L (15-37); BICARBONATE 21.9 MEQ/L (21.0-32.0); BLOOD UREA NITROGEN 6 MG/DL (7-18); CHLORIDE 111 MEQ/L (98-107); GLOMERULAR FILTRATION RATE 139 ML/MIN (>89); MAGNESIUM 1.9 MG/DL (1.5-2.5); POTASSIUM 3.5 MEQ/L (3.5-5.1); SODIUM (NA) 143 MEQ/L (136-145)
[2017-07-06] MEDS ORDERED: IOHEXOL 350 MG/ML 10 ML VIAL (for RAD DIAG) IVCONTRAST ONE (05:57)
[2017-07-06] MEDS ORDERED: MORPHINE SULFATE 4 MG/ML INJ IV PUSH ONE (06:15)
--- NOTE | 2017-07-06 06:16 | RADRPT ---
EXAM DATE/TIME: 07/06/2017 05:56 [facility] COMPARISON: CT ABDOMEN & PELVIS W CONTRAST, December 08, 2016, 20:56. US PELVIS COMP W/TRANSVAGINAL, December, 15:18. CT ABDOMEN & PELVIS W CONTRAST, December 23, 2016, 22:32. INDICATIONS : Abdominal pain with nausea and vomiting. IV CONTRAST: 95 cc Omnipaque 350 (iohexol) IV ORAL CONTRAST: No oral contrast ingested. RADIATION DOSE: 4.50 CTDIvol (mGy) MEDICAL HISTORY : Colitis. SURGICAL HISTORY : None. ENCOUNTER: Initial ACUITY: 1 day PAIN SCALE: 5/10 LOCATION: Bilateral abdomen TECHNIQUE: Volumetric scanning of the abdomen and pelvis was performed. Using automated exposure control and ad justment of the mA and/or kV according to patient size, radiation dose was kept as low as reasonably achievable to obtain optimal diagnostic quality images. DICOM format image data is available electro nically for review and comparison. FINDINGS: LOWER LUNGS: The visualized lower lungs are clear. LIVER: Mildly enlarged liver at 18.4 cm craniocaudal. Mild fatty infiltration has also developed. A few scat tered subcentimeter cysts are again noted. SPLEEN: Normal size without lesion. PANCREAS: Within normal limits. KIDNEYS: Normal in size and shape. There is no mass, stone or hydronephrosis. ADRENAL GLANDS: Within normal limits. VASCULAR: There is no aortic aneurysm. BOWEL/MESENTERY: The stomach, small bowel, and colon demonstrate no acute abnormality. There is no free intraperitone al air or fluid. ABDOMINAL WALL: Within normal limits. RETROPERITONEUM: There is no lymphadenopathy. BLADDER: No wall thickening or mass. REPRODUCTIVE: There is a multiloculated cystic mass in the left adnexal region that is larger than before, currentl y 5.6 x 9.1 x 6.0 cm. There is trace free fluid in the pelvic cul-de-sac. INGUINAL: There is no lymphadenopathy or hernia. MUSCULOSKELETAL: Within normal limits for patient age. CONCLUSION: 1. Multiloculated cystic mass and/or hydrosalpinx of the left adnexa, larger than before. No high-gra de acute inflammatory changes are demonstrated. Trace free fluid. 2. Mildly enlarged and now fatty infiltrated liver. 3. No obstruction or inflammatory changes are seen in the gastrointestinal tract. Benigno Luo MD on July 06, 2017 at 6:10 Board Certified Radiologist. This report was verified electronically.
[2017-07-06 06:40] LABS: ALCOHOL LESS THAN 3 MG/DL (0-5)
[2017-07-06] MEDS ORDERED: PIPERACIL-TAZO 3.375 GM PREMIX 50 ML IV ONE (07:00)
[2017-07-06] MEDS ORDERED: VANCOMYCIN INJ 1,000 MG in SODIUM CHLOR 0.9% 250 ML INJ 250 ML IV ONE (07:00)
[2017-07-06] MEDS ORDERED: ACETAMINOPHEN/HYDROcodone 325 MG/7.5 MG TAB PO PRN (09:15)
[2017-07-06] MEDS ORDERED: ACETAMINOPHEN/HYDROcodone 325 MG/5 MG TAB PO PRN (09:15)
[2017-07-06] MEDS ORDERED: NALOXONE HCL 0.4 MG/ML AMP IV PRN (09:15)
--- NOTE | 2017-07-06 09:16 | HHI.HP ---
HPI Chief Complaint nausea and vomiting 1 day abdominal pain 1 day Date Seen: Jul 06, 2017 Time Seen: 09:00 Travel History International Travel<30 Days: No Contact w/Intl Traveler<30Days: No Known Affected Area: No History of Present Illness HPI Pt is a 42 yo AA female who presented to the Er with main complaint of nausea and vomiting starting last night. She also developed abdominal pain, gradual onset from about 2am. Denies diarrhea, fever or chills. Both nausea and pain have improved since being in the ER. NUTRITIONAL SERVICES HOST was consulted o/a CT scan finding of left adnexal mass measuring 5.6x 9.1x 6cm. Mass was noted on US 12/2016 but is larger on this image. pt has not seen a NUTRITIONAL SERVICES HOST in years. Does not remember her last PAP. She is and is sexually active without any contraception, but has never been . Pt has h/o colitis and states that pain is similar in nature to previous episodes. Last Menstrual Period: Jul 27, 2017 History Past Medical History Narrative Medical Colitis, Hypokalemia Gout Past Surgical History Surgical History: No Previous Surgery Family History Family History: Negative Social History Alcohol Use: No Tobacco Use: Yes (PPD smoker) Substance Abuse: Yes (Marijuana use) Allergies-Medications (Allergen,Severity, Reaction): Coded Allergies: No Known Allergies (Verified , 12/23/16) Home Meds Reported Medications Potassium Chloride ER (Potassium Chloride ER) 10 Meq Cap, 1 TAB PO DAILY for Electrolyte Replacement, #30 CAP 0 Refills 07/06/17 Discontinued Scripts Lactobacillus Acidophilus (Lactinex) 1 Chew, 1 TAB CHEW DAILY for Nutritional Supplement, #30 TAB 0 Refills Prov:Lauro Oreilly MD 12/29/16 Metronidazole (Flagyl) 500 Mg Tab, 500 MG PO TID for Infection, #30 TAB 0 Refills Prov:Lauro Oreilly MD 12/29/16 Ciprofloxacin (Cipro) 500 Mg Tab, 500 MG PO BID for Infection, #10 TAB 0 Refills Prov:Lauro Oreilly MD 12/29/16 Review of Systems Except as stated in HPI: all other systems reviewed are Neg Physical Exam Vital Signs Date Time Temp Pulse Resp B/P (MAP) Pulse Ox O2 Delivery O2 Flow Rate FiO2 07/06/17 07:32 97.7 71 14 119/80 (93) 100 07/06/17 06:38 70 12 116/71 (86) 100 Room Air 07/06/17 04:16 87 18 129/90 (103) 98 Room Air 07/06/17 03:00 97.7 78 18 146/82 (103) 100 Narrative GENERAL: Well-nourished, well-developed patient. SKIN: Warm and dry. HEAD: Normocephalic and atraumatic. EYES: No scleral icterus. No injection or drainage. ENT: No nasal drainage noted. Mucous membranes pink. Airway patent. NECK: Supple, trachea midline. No JVD. CARDIOVASCULAR: Regular rate and rhythm without murmurs, gallops, or rubs. RESPIRATORY: Breath sounds equal bilaterally. No accessory muscle use. BREASTS: Bilateral exam showed no masses , no retractions, no nipple discharge. ABDOMEN/GI: Abdomen soft, non-tender, bowel sounds present, no rebound, no guarding Abdomen soft, non distended, GENITOURINARY: External Genitalia: intact and normal in appearance BUS glands: [wnl] Cervix: [closed] uterus normal size, anteverted, non tender. left adnexal fullness. Minimal bilateral abdominal tenderness EXTREMITIES: No cyanosis or edema. BACK: Nontender without obvious deformity. No CVA tenderness. NEUROLOGICAL: Awake and alert. Motor and sensory grossly within normal limits. Five out of 5 muscle strength in all muscle groups. Normal speech. Caprini VTE Risk Assessment Caprini VTE Risk Assessment: No/Low Risk (score <= 1) Caprini Risk Assessment Model Point Value = 1 Point Value = 2 Point Value = 3 Point Value = 5 Age 41-60 Minor surgery BMI > 25 kg/m2 Swollen legs Varicose veins or History of unexplained or recurrent spontaneous Oral contraceptives or hormone replacement Sepsis (< 1 month) Serious lung disease, including pneumonia (< 1 month) Abnormal pulmonary function Acute myocardial infarction Congestive heart failure (< 1 month) History of inflammatory bowel disease Medical patient at bed rest Age 61-74 Arthroscopic surgery Major open surgery (> 45 min) Laparoscopic surgery (> 45 min) Malignancy Confined to bed (> 72 hours) Immobilizing plaster cast Central venous access Age >= 75 History of VTE Family history of VTE Factor V Leiden Prothrombin [id number] Lupus anticoagulant Anticardiolipin antibodies Elevated serum homocysteine Heparin-induced thrombocytopenia Other congenital or acquired thrombophilia Stroke (< 1 month) Elective arthroplasty Hip, pelvis, or leg fracture Acute spinal cord injury (< 1 month) Prophylaxis Regimen Total Risk Factor Score Risk Level Prophylaxis Regimen 0-1 Low Early ambulation 2 Moderate Order ONE of the following: *Sequential Compression Device (SCD) *Heparin 5000 units SQ BID 3-4 Higher Order ONE of the following medications: *Heparin 5000 units SQ TID *Enoxaparin/Lovenox 40 mg SQ daily (WT < 150 kg, CrCl > 30 mL/min) *Enoxaparin/Lovenox 30 mg SQ daily (WT < 150 kg, CrCl > 10-29 mL/min) *Enoxaparin/Lovenox 30 mg SQ BID (WT < 150 kg, CrCl > 30 mL/min) AND/OR *Sequential Compression Device (SCD) 5 or more Highest Order ONE of the following medications: *Heparin 5000 units SQ TID (Preferred with Epidurals) *Enoxaparin/Lovenox 40 mg SQ daily (WT < 150 kg, CrCl > 30 mL/min) *Enoxaparin/Lovenox 30 mg SQ daily (WT < 150 kg, CrCl > 10-29 mL/min) *Enoxaparin/Lovenox 30 mg SQ BID (WT < 150 kg, CrCl > 30 mL/min) AND *Sequential Compression Device (SCD) Data Data Orders Orders Ondansetron Inj (Zofran Inj) (07/06/17 03:00) Complete Blood Count With Diff (07/06/17 03:05) Comprehensive Metabolic Panel (07/06/17 03:05) C-Reactive Protein (Crp) (07/06/17 03:05) Lipase (07/06/17 03:05) Urinalysis - C+S If Indicated (07/06/17 03:05) Westergren Sedimentation Rate (07/06/17 03:05) Magnesium (Mg) (07/06/17 03:05) Iv Access Insert/Monitor (07/06/17 03:05) Ecg Monitoring (07/06/17 03:05) Oximetry (07/06/17 03:05) Ed Urine Pregnancytest Poc (07/06/17 03:05) Sodium Chlor 0.9% 1000 Ml Inj (Ns 1000 M (07/06/17 03:15) Ondansetron Inj (Zofran Inj) (07/06/17 03:15) Thyroid Stimulating Hormone (07/06/17 03:13) Ketorolac Inj (Toradol Inj) (07/06/17 04:00) Drug Screen, Random Urine (07/06/17 03:51) Lactic Acid Sepsis Protocol (07/06/17 03:54) Ketorolac Inj (Toradol Inj) (07/06/17 05:00) Sodium Chlorid 0.9% 500 Ml Inj (Ns 500 M (07/06/17 05:00) Prochlorperazine Inj (Compazine Inj) (07/06/17 05:00) Alcohol (Ethanol) (07/06/17 05:07) Ct Abd/Pel W Iv Contrast(Rout) (07/06/17 05:15) Iohexol 350 Inj (Omnipaque 350 Inj) (07/06/17 05:57) Morphine Inj (Morphine Inj) (07/06/17 06:15) Admit Order (Ed Use Only) (07/06/17 06:46) Consult Gynecology (07/06/17 ) Us Pelvis Comp Injection Molding Machine Offbearer/Non-Preg (07/06/17 06:46) Piperacil-Tazo 3.375 Gm Premix (Zosyn 3. (07/06/17 07:00) Vancomycin Inj (Vancomycin Inj) (07/06/17 07:00) Blood Culture (07/06/17 06:48) (Hub Use Only)Inp Phy Cons/Ref (07/06/17 ) Physician Name Changes (07/06/17 ) Labs Laboratory Tests Test 07/06/17 03:13 07/06/17 04:10 07/06/17 04:52 07/06/17 05:07 White Blood Count 18.1 Red Blood Count 4.73 Hemoglobin 13.4 Hematocrit 39.8 Mean Corpuscular Volume 84.3 Mean Corpuscular Hemoglobin 28.3 Mean Corpuscular Hemoglobin Concent 33.5 Red Cell Distribution Width 16.3 Platelet Count 330 Mean Platelet Volume 8.2 Neutrophils (%) (Auto) 81.8 Lymphocytes (%) (Auto) 12.5 Monocytes (%) (Auto) 4.4 Eosinophils (%) (Auto) 0.6 Basophils (%) (Auto) 0.7 Neutrophils # (Auto) 14.8 Lymphocytes # (Auto) 2.3 Monocytes # (Auto) 0.8 Eosinophils # (Auto) 0.1 Basophils # (Auto) 0.1 CBC Comment DIFF FINAL Differential Comment Erythrocyte Sedimentation Rate 1 Lactic Acid Level 1.7 Urine Color YELLOW Urine Turbidity HAZY Urine pH 8.0 Urine Specific [place] 1.018 Urine Protein TRACE Urine Glucose (UA) NEG Urine Ketones 40 Urine Occult Blood NEG Urine Nitrite NEG Urine Bilirubin NEG Urine Urobilinogen LESS THAN 2.0 Urine Leukocyte Esterase NEG Urine RBC 2 Urine WBC 1 Urine Squamous Epithelial Cells 5 Urine Hyaline Casts 1 Urine Mucus FEW Microscopic Urinalysis Comment CULT NOT INDICATED Urine Opiates Screen NEG Urine Barbiturates Screen NEG Urine Amphetamines Screen NEG Urine Benzodiazepines Screen NEG Urine Cocaine Screen NEG Urine Cannabinoids Screen POS Blood Urea Nitrogen 6 Creatinine 0.58 Random Glucose 118 Total Protein 6.4 Albumin 4.0 Calcium Level 8.4 Magnesium Level 1.9 Alkaline Phosphatase 43 Aspartate Amino Transf (AST/SGOT) 13 Alanine Aminotransferase (ALT/SGPT) 17 Total Bilirubin 0.2 Sodium Level 143 Potassium Level 3.5 Chloride Level 111 Carbon Dioxide Level 21.9 Anion Gap 10 Estimat Glomerular Filtration Rate 139 C-Reactive Protein LESS THAN 0.29 Lipase 112 Thyroid Stimulating Hormone 3rd Gen 1.760 Ethyl Alcohol Level LESS THAN 3 Date/Time Source Procedure Growth Status 07/06/17 07:30 Blood Peripheral Aerobic Blood Culture Pending Received 07/06/17 07:30 Blood Peripheral Anaerobic Blood Culture Pending Received Assessment/Plan Assessment and Plan Pt is a 42 yo P0 AA female who presented to ER with nausea and vomiting and subsequent low abdominal pain. CT scan shows 9.1 x 5.6x 6cm left adnexa; mass. Same mass was present on imaging 12/2016 but was smaller. pt reports symptoms of nausea, vomitinng and pain are improved. Pt does not have acute abdomen. Recommend pelvic US with Doppler flow to rule out adnexal torsion. Should make appt with PCP for supervisor wood crew referral if Dopplers wnl. Osmar Davis MD Jul 06, 2017 09:16
--- NOTE | 2017-07-06 09:21 | HHI.HP ---
[facility] Service [facility] Primary Care Physician Unknown Admission Diagnosis Intractable abdominal pain, adnexal mass Diagnoses: Travel History International Travel<30 Days: No Contact w/Intl Traveler <30 Da: No Traveled to Known Affected Are: No History of Present Illness 42-year-old female with a history of colitis, chronic abdominal pain, marijuana use, who presents with acute onset crampy. Umbilical abdominal pain since yesterday. Patient is uncertain exactly what time this started. She also reports nausea with nonbloody, [id number] vomiting. Denies any diarrhea , constipation, melena. Denies any fevers or chills. She denies any vaginal discharge. She does report some lightheadedness prior to admission which has resolved with fluids. History is difficult on account of patient says she is tired after pain medication, does not want to answer too many questions. She states that abdominal pain has resolved after pain medication at this time, however she is still very tender to palpation. Review of Systems Except as stated in HPI: all other systems reviewed are Neg Past Family Social History Past Medical History History of colitis on previous admissions. She reports history of hypokalemia for which she takes potassium. Gout History of ovarian cysts History of PID on December 2016 admission. Past Surgical History Patient denies any past surgical history. Reported Medications Patient takes potassium 10 mEq daily Allergies: Coded Allergies: No Known Allergies (Verified , 12/23/16) Family History Patient denies any family history. Says she cannot remember at this time. Social History Patient smokes one pack per day for the past 10 years. She smokes marijuana on a somewhat regular basis. Last marijuana use was 2 days ago. Denies any alcohol use. Physical Exam Vital Signs Vital Signs Date Time Temp Pulse Resp B/P (MAP) Pulse Ox O2 Delivery O2 Flow Rate FiO2 07/06/17 07:32 97.7 71 14 119/80 (93) 100 07/06/17 06:38 70 12 116/71 (86) 100 Room Air 07/06/17 04:16 87 18 129/90 (103) 98 Room Air 07/06/17 03:00 97.7 78 18 146/82 (103) 100 Physical Exam GENERAL: This is a well-nourished, well-developed patient, appears somnolent. Wakes up for exam. She is oriented 3. SKIN: No rashes, ecchymoses or lesions. Cool and dry. HEAD: Atraumatic. Normocephalic. No temporal or scalp tenderness. EYES: Pupils equal round and reactive. Extraocular motions intact. No scleral icterus. No injection or drainage. ENT: Nose without bleeding, purulent drainage or septal hematoma. Throat without erythema, tonsillar hypertrophy or exudate. Uvula midline. Airway patent. NECK: Trachea midline. No JVD or lymphadenopathy. Supple, nontender, no meningeal signs. CARDIOVASCULAR: Regular rate and rhythm without murmurs, gallops, or rubs. RESPIRATORY: Clear to auscultation. Breath sounds equal bilaterally. No wheezes , rales, or rhonchi. GASTROINTESTINAL: Abdomen soft, tender to moderate palpation in bilateral adnexa. No hepato-splenomegaly, or palpable masses. No rebound, no guarding. MUSCULOSKELETAL: Extremities without clubbing, cyanosis, or edema. No joint tenderness, effusion, or edema noted. No calf tenderness. Negative Homans sign bilaterally. NEUROLOGICAL: Awake and alert. Cranial nerves II through XII intact. Motor and sensory grossly within normal limits. Five out of 5 muscle strength in all muscle groups. Normal speech. Laboratory Laboratory Tests Test 07/06/17 03:13 07/06/17 04:10 07/06/17 04:52 07/06/17 05:07 White Blood Count 18.1 Red Blood Count 4.73 Hemoglobin 13.4 Hematocrit 39.8 Mean Corpuscular Volume 84.3 Mean Corpuscular Hemoglobin 28.3 Mean Corpuscular Hemoglobin Concent 33.5 Red Cell Distribution Width 16.3 Platelet Count 330 Mean Platelet Volume 8.2 Neutrophils (%) (Auto) 81.8 Lymphocytes (%) (Auto) 12.5 Monocytes (%) (Auto) 4.4 Eosinophils (%) (Auto) 0.6 Basophils (%) (Auto) 0.7 Neutrophils # (Auto) 14.8 Lymphocytes # (Auto) 2.3 Monocytes # (Auto) 0.8 Eosinophils # (Auto) 0.1 Basophils # (Auto) 0.1 CBC Comment DIFF FINAL Differential Comment Erythrocyte Sedimentation Rate 1 Lactic Acid Level 1.7 Urine Color YELLOW Urine Turbidity HAZY Urine pH 8.0 Urine Specific [place] 1.018 Urine Protein TRACE Urine Glucose (UA) NEG Urine Ketones 40 Urine Occult Blood NEG Urine Nitrite NEG Urine Bilirubin NEG Urine Urobilinogen LESS THAN 2.0 Urine Leukocyte Esterase NEG Urine RBC 2 Urine WBC 1 Urine Squamous Epithelial Cells 5 Urine Hyaline Casts 1 Urine Mucus FEW Microscopic Urinalysis Comment CULT NOT INDICATED Urine Opiates Screen NEG Urine Barbiturates Screen NEG Urine Amphetamines Screen NEG Urine Benzodiazepines Screen NEG Urine Cocaine Screen NEG Urine Cannabinoids Screen POS Blood Urea Nitrogen 6 Creatinine 0.58 Random Glucose 118 Total Protein 6.4 Albumin 4.0 Calcium Level 8.4 Magnesium Level 1.9 Alkaline Phosphatase 43 Aspartate Amino Transf (AST/SGOT) 13 Alanine Aminotransferase (ALT/SGPT) 17 Total Bilirubin 0.2 Sodium Level 143 Potassium Level 3.5 Chloride Level 111 Carbon Dioxide Level 21.9 Anion Gap 10 Estimat Glomerular Filtration Rate 139 C-Reactive Protein LESS THAN 0.29 Lipase 112 Thyroid Stimulating Hormone 3rd Gen 1.760 Ethyl Alcohol Level LESS THAN 3 Date/Time Source Procedure Growth Status 07/06/17 07:30 Blood Peripheral Aerobic Blood Culture Pending Received 07/06/17 07:30 Blood Peripheral Anaerobic Blood Culture Pending Received Result Diagram: 07/06/17 0313 07/06/17 0507 Imaging Last Impressions Abdomen/Pelvis CT 07/06/17 0515 Signed Impressions: Service Date/Time: Thursday, July 06, 2017 05:56 - CONCLUSION: 1. Multiloculated cystic mass and/or hydrosalpinx of the left adnexa, larger than before. No high-grade acute inflammatory changes are demonstrated. Trace free fluid. 2. Mildly enlarged and now fatty infiltrated liver. 3. No obstruction or inflammatory changes are seen in the gastrointestinal tract. Benigno Luo MD Caprini VTE Risk Assessment Caprini VTE Risk Assessment: No/Low Risk (score <= 1) Caprini Risk Assessment Model Point Value = 1 Point Value = 2 Point Value = 3 Point Value = 5 Age 41-60 Minor surgery BMI > 25 kg/m2 Swollen legs Varicose veins or History of unexplained or recurrent spontaneous Oral contraceptives or hormone replacement Sepsis (< 1 month) Serious lung disease, including pneumonia (< 1 month) Abnormal pulmonary function Acute myocardial infarction Congestive heart failure (< 1 month) History of inflammatory bowel disease Medical patient at bed rest Age 61-74 Arthroscopic surgery Major open surgery (> 45 min) Laparoscopic surgery (> 45 min) Malignancy Confined to bed (> 72 hours) Immobilizing plaster cast Central venous access Age >= 75 History of VTE Family history of VTE Factor V Leiden Prothrombin [id number] Lupus anticoagulant Anticardiolipin antibodies Elevated serum homocysteine Heparin-induced thrombocytopenia Other congenital or acquired thrombophilia Stroke (< 1 month) Elective arthroplasty Hip, pelvis, or leg fracture Acute spinal cord injury (< 1 month) Prophylaxis Regimen Total Risk Factor Score Risk Level Prophylaxis Regimen 0-1 Low Early ambulation 2 Moderate Order ONE of the following: *Sequential Compression Device (SCD) *Heparin 5000 units SQ BID 3-4 Higher Order ONE of the following medications: *Heparin 5000 units SQ TID *Enoxaparin/Lovenox 40 mg SQ daily (WT < 150 kg, CrCl > 30 mL/min) *Enoxaparin/Lovenox 30 mg SQ daily (WT < 150 kg, CrCl > 10-29 mL/min) *Enoxaparin/Lovenox 30 mg SQ BID (WT < 150 kg, CrCl > 30 mL/min) AND/OR *Sequential Compression Device (SCD) 5 or more Highest Order ONE of the following medications: *Heparin 5000 units SQ TID (Preferred with Epidurals) *Enoxaparin/Lovenox 40 mg SQ daily (WT < 150 kg, CrCl > 30 mL/min) *Enoxaparin/Lovenox 30 mg SQ daily (WT < 150 kg, CrCl > 10-29 mL/min) *Enoxaparin/Lovenox 30 mg SQ BID (WT < 150 kg, CrCl > 30 mL/min) AND *Sequential Compression Device (SCD) Assessment and Plan Assessment and Plan //Acute abdominal pain. //Nausea, vomiting -CDK reviewed with left-sided adnexal mass larger than previously. -Antiemetics as necessary. -Pelvic mass on CT. Worsened from previous imaging. Gynecology consulted. Appreciate assistance. //Leukocytosis. White blood cell count 18.1 on admission. -CT abdomen without leukocytosis. Likely secondary to nausea, vomiting. //Left Pelvic mass. -As seen on CT scan above. -Pain control with narcotics as necessary -Ultrasound pelvis ordered and pending. -Gynecology consulted. Appreciate assistance. //Fatty filtration of liver. -On CT scan. -This could be related to cystic mass left adnexa versus chronic alcoholism. -LFTs unremarkable. -No indication of liver pain, follow-up with primary care as outpatient for this. //Marijuana use. Cessation counseling provided. //Tobacco abuse. Cessation counseling provided. //Prophylaxis. SCDs. Otherwise as per surgical service. Discussed Condition With Patient, nurse, ED physician. Physician Certification 2 Midnight Certification Type: Admission for Inpatient Services Order for Inpatient Services The services are ordered in accordance with Medicare regulations or non- Medicare payer requirements, as applicable. In the case of services not specified as inpatient-only, they are appropriately provided as inpatient services in accordance with the 2-midnight benchmark. Estimated LOS (days): 2 days is the estimated time the patient will need to remain in the hospital, assuming treatment plan goals are met and no additional complications. Post-Hospital Plan: Not yet determined Jorge Carrington MD Jul 06, 2017 09:21
--- NOTE | 2017-07-06 09:41 | RADRPT ---
EXAM DATE/TIME: 07/06/2017 09:09 [facility] COMPARISON: US PELVIS COMP W/TRANSVAGINAL, December 26, 2016, 15:18. INDICATIONS : Pelvic pain. MEDICAL HISTORY : Colitis. SURGICAL HISTORY : None. ENCOUNTER: Subsequent ACUITY: 2 days PAIN SCORE: 10/10 LOCATION: Bilateral pelvis MEASUREMENTS: UTERUS: 7.9 x 5.7 x 3.4 cm ENDOMETRIAL STRIPE: 6 mm RIGHT OVARY: 3.7 x 1.8 x 1.8 cm LEFT OVARY: 9.0 x 4.8 x 5.8 cm FINDINGS: The uterus is normal in appearance. Normal endometrial thickness. The right ovary is normal with norm al blood flow on color Doppler imaging. There is blood flow also seen to the left ovary. A 9.0 x 3.7 x 5.1 cm elongated complex cystic mass in the left adnexal region is identified with no increased blo od flow seen on color Doppler imaging. CONCLUSION: Lobulated complex cystic mass left adnexa without blood flow. A hydrosalpinx is suspected based on th e Limited sonographic images and the CT examination from earlier today. Raul Garcia MD on July 06, 2017 at 9:36 Board Certified Radiologist. This report was verified electronically.
[2017-07-06] MEDS: D5-1/2 NS + KCL 20 MEQ INJ 1,000 ML IV SCH ×2 (10:05→21:47)
[2017-07-06] MEDS: ONDANSETRON HCL 4 MG/2 ML VIAL IV PUSH PRN ×3 (10:44→21:43)
[2017-07-06] MEDS: MORPHINE SULFATE 4 MG/ML INJ IV PRN ×3 (10:44→21:43)
[2017-07-07] VITALS: BP 115/69; PULSE 76; RESP 18; TEMP 98.6; O2SAT 99
[2017-07-07 04:00] VITALS: BP 116/75; PULSE 77; RESP 17; TEMP 99.4; O2SAT 100
[2017-07-07 08:00] VITALS: BP 130/68; PULSE 75; RESP 16; TEMP 98; O2SAT 99
[2017-07-07 12:41] LABS: AUTOMATED NEUTROPHIL # 7.4 TH/MM3 (1.8-7.7); BASOPHIL # 0.1 TH/MM3 (0-0.2); BASOPHIL % 0.6 % (0.0-2.0); EOSINOPHIL # 0.1 TH/MM3 (0-0.4); EOSINOPHIL % 0.9 % (0.0-4.0); HEMATOCRIT 32.4 % (35.0-46.0); HEMO FLAGS DIFF FINAL; LYMPH % 19.3 % (9.0-44.0); MEAN CELL VOLUME 84.3 FL (80.0-100.0); MEAN CORPUSCULAR HEMOGLOBIN 27.9 PG (27.0-34.0); MEAN CORPUSCULAR HGB CONC 33.1 % (32.0-36.0); MONO % 7.5 % (0.0-8.0); NEUT % 71.7 % (16.0-70.0); PLATELET COUNT 271 TH/MM3 (150-450); RED BLOOD COUNT 3.85 MIL/MM3 (4.00-5.30); RED CELL DISTRIBUTION WIDTH 15.6 % (11.6-17.2); WHITE BLOOD COUNT 10.3 TH/MM3 (4.0-11.0)
[2017-07-07 12:45] VITALS: BP 134/85; PULSE 76; RESP 16; TEMP 98.2; O2SAT 100
[2017-07-07 13:02] LABS: ANION GAP 6 MEQ/L (5-15); AST (GOT) 12 U/L (15-37); BICARBONATE 25.9 MEQ/L (21.0-32.0); BLOOD UREA NITROGEN 9 MG/DL (7-18); CHLORIDE 106 MEQ/L (98-107); GLOMERULAR FILTRATION RATE 137 ML/MIN (>89); POTASSIUM 3.2 MEQ/L (3.5-5.1); SODIUM (NA) 138 MEQ/L (136-145)
[2017-07-07 13:03] LABS: ALT (GPT) 15 U/L (10-53)
[2017-07-07 13:06] LABS: ALKALINE PHOSPHATASE 44 U/L (45-117); TOTAL BILIRUBIN ADULT 0.5 MG/DL (0.2-1.0)
[2017-07-07 16:00] VITALS: BP 128/75; PULSE 71; RESP 16; TEMP 98.4; O2SAT 100
[2017-07-07] MEDS ORDERED: ONDA4INJ2 IV PUSH (18:09)
--- NOTE | 2017-07-07 18:19 | HHI.PR ---
Subjective Remarks Since seen today around noon. Says she is feeling better. Nausea has resolved currently. We discussed trying to avoid marijuana due to its association with cyclic vomiting. She refuses. Objective Vital Signs Date Time Temp Pulse Resp B/P (MAP) Pulse Ox O2 Delivery O2 Flow Rate FiO2 07/07/17 16:00 98.4 71 16 128/75 (92) 100 07/07/17 12:45 98.2 76 16 134/85 (101) 100 07/07/17 08:00 98.0 75 16 130/68 (88) 99 07/07/17 04:00 99.4 77 17 116/75 (89) 100 07/07/17 00:00 98.6 76 18 115/69 (84) 99 07/06/17 21:48 16 07/06/17 20:00 99.5 78 17 112/75 (87) 100 I/O 07/06/17 07/06/17 07/06/17 07/07/17 07/07/17 07/07/17 06:59 14:59 22:59 06:59 14:59 22:59 Intake Total 1500 ml 300 ml 480 ml Balance 1500 ml 300 ml 480 ml Intake Oral 480 ml IV Total 1500 ml 300 ml # Voids 3 Result Diagram: 07/07/17 1223 07/07/17 1223 Imaging Last Impressions Pelvis Ultrasound 07/06/17 0646 Signed Impressions: Service Date/Time: Thursday, July 06, 2017 09:09 - CONCLUSION: Lobulated complex cystic mass left adnexa without blood flow. A hydrosalpinx is suspected based on the Limited sonographic images and the CT examination from earlier today. Raul Garcia MD Abdomen/Pelvis CT 07/06/17 0515 Signed Impressions: Service Date/Time: Thursday, July 06, 2017 05:56 - CONCLUSION: 1. Multiloculated cystic mass and/or hydrosalpinx of the left adnexa, larger than before. No high-grade acute inflammatory changes are demonstrated. Trace free fluid. 2. Mildly enlarged and now fatty infiltrated liver. 3. No obstruction or inflammatory changes are seen in the gastrointestinal tract. Benigno Luo MD Objective Remarks GENERAL: patient sitting up in bed. Appears comfortable. Alert and oriented 3. SKIN: Warm and dry. HEAD: Normocephalic. EYES: No scleral icterus. No injection or drainage. NECK: Supple, trachea midline. No JVD. CARDIOVASCULAR: Regular rate and rhythm without murmurs, gallops, or rubs. RESPIRATORY: Breath sounds equal bilaterally. No accessory muscle use. GASTROINTESTINAL: Abdomen soft, non-tender, nondistended. MUSCULOSKELETAL: No cyanosis, or edema. BACK: Nontender without obvious deformity. No CVA tenderness. A/P Assessment and Plan == 07/07/17. Discharge home. Patient will need to follow-up with gynecology. //Acute abdominal pain. //Nausea, vomiting -CDK reviewed with left-sided adnexal mass larger than previously. -Improved with Antiemetics as necessary. -Pelvic mass on CT. Worsened from previous imaging. Gynecology consulted. Appreciate assistance. -Resolved. Follow-up with gynecology for pelvic mass. Possibility of malignancy. Patient conveys understanding. //Suspected cannabinoid hyperemesis syndrome -Explanation given. Recommend cessation for at least one month. Cessation counseling provided. patient refuses. //Leukocytosis. White blood cell count 18.1 on admission. -CT abdomen without evidence of infection. = Resolved. Likely secondary to nausea, vomiting. //Left Pelvic mass. -As seen on CT scan above. -Pain control with narcotics as necessary -Ultrasound pelvis ordered and pending. -Gynecology consulted. Appreciate assistance. = Appreciate gynecology assistance. Follow-up with gynecology as outpatient. //Fatty filtration of liver. -On CT scan. -This could be related to cystic mass left adnexa versus chronic alcoholism. -LFTs unremarkable. -No indication of liver pain, follow-up with primary care as outpatient for this. -Discussed with patient. Patient conveys understanding. //Marijuana use. Cessation counseling provided. //Tobacco abuse. Cessation counseling provided. //Prophylaxis. SCDs. Otherwise as per surgical service. Discharge Planning Patient tolerated diet. Discharge home in good condition. Diet regular. Activity ad boni. Follow-up with primary care and gynecology for evaluation of fatty infiltration of liver as well as pelvic mass. Please see discharge medication list. Jorge Carrington MD Jul 07, 2017 18:19
[2017-07-07] MEDS ORDERED: POTASSIUM CHLORIDE 10 MEQ CONTROLLED RELEASE TAB PO ONE (18:30)
== END 2017-07-07 18:45 | disposition home or self-care (01) | DRG 392 ==
LOC: NEPE 02:56 → NEDA 06:49 → HOCB 10:16
PROVIDERS: ADMIT Internal Medicine; ATTEND Internal Medicine
DX: R10.84 Generalized abdominal pain (principal); K76.0 Fatty (change of) liver, not elsewhere classified; G43.A0 Cyclical vomiting, in migraine, not intractable; T40.7X5A Adverse effect of cannabis (derivatives), initial encounter; F17.210 Nicotine dependence, cigarettes, uncomplicated; M10.9 Gout, unspecified; G89.29 Other chronic pain; R19.00 Intra-abdominal and pelvic swelling, mass and lump, unspecified site
CPT/HCPCS: 74177; 76856; 80053; 80307; 81001; 83605; 83690; 83735; 84443; 84703; 85025; 85652; 86140; 87040; 93975; 96360; 96361; 96374; 96375; 96376; J0780; J1885; J2270; J2405; J2543; J3370; J3480; J7030; J7040; J7050; Q9967

== ENCOUNTER 2017-09-01 21:03 | Emergency (ER) | payer SELFPAY ==
[~2017-09-01] VITALS: Ht 167.6 cm; Wt 60.0 kg
[~2017-09-01 21:03] MED LIST changes: -CIPR-9 PO; -LACTCHW3 CHEW; -METR-1 PO; +ONDA4INJ2 IV PUSH; +POTA10CA PO
[2017-09-01] MEDS ORDERED: IOHEXOL 350 MG/ML 10 ML VIAL (for RAD DIAG) IVCONTRAST ONE (21:04)
[2017-09-01 21:05] VITALS: BP 136/99; PULSE 102; RESP 20; TEMP 98.5; O2SAT 99
--- NOTE | 2017-09-01 21:10 | PD ---
Physical Exam Date Seen by Provider: Sep 01, 2017 Time Seen by Provider: 21:07 Narrative 42-year-old black female presents to emergency Department with complaints of abdominal pain since 8:00 this morning. Patient states that she has a history of colitis and ovarian cyst. Patient states that she has had some nausea and had one episode of vomiting earlier. Last menstrual. Earlier this month. Patient states that she had a small amount of vaginal bleeding and passed a small clot. No dysuria or frequency. No vaginal discharge. Patient reports her pain to be at 10/10. Vital signs reviewed. Pt waiting for bed placement. Data Data Last Documented VS Vital Signs Date Time Temp Pulse Resp B/P (MAP) Pulse Ox O2 Delivery O2 Flow Rate FiO2 09/01/17 21:05 98.5 102 20 136/99 (111) 99 Room Air [facility] Medical Record Reviewed: No Supervised Visit with WAQAS: No Condition: Stable Oz Quiros Sep 01, 2017 21:10
[2017-09-01] MEDS ORDERED: SODIUM CHLOR 0.9% 1000 ML INJ 1,000 ML IV SCH (22:30)
--- NOTE | 2017-09-01 22:40 | PD ---
HPI Chief Complaint: Abdominal Pain Time Seen by Provider: 22:29 Travel History International Travel<30 days: No Contact w/Intl Traveler<30days: No Traveled to known affect area: No History of Present Illness HPI 6-year-old female that presents to the ED for evaluation of lower abdominal pain. Per patient she has a history of ovarian cyst as well as colitis and she has been here before for the same. Per patient she doesn't have a ASSISTANT IN NURSING outpatient has not follow with anybody outpatient. Per patient the pain started today and is severe. Per patient she is also starting possibly her period today and she's had some clotting coming from the vagina but is not constant like her period. She has no allergies to medication. She isn't taking anything for this. She denies any nausea or vomiting. She denies any bowel movement issues today and she has not had a bowel movement since yesterday. No urinary symptoms. Denies . No vaginal discharge other than the clotting. No fevers chills or sweats. No other medical issues at this time. Pain per patient is 7 out of 10. States mainly in the lower abdomen. PFSH Past Medical History Blood Disorders: No Anxiety: No Depression: No Cancer: No Cardiovascular Problems: No Diminished Hearing: No Endocrine: No (family hx(brother)) Gastrointestinal Disorders: Yes (colitis) GERD: No Gout: Yes Genitourinary: No Hiatal Hernia: No Immune Disorder: No Musculoskeletal: No Neurologic: No Psychiatric: No Reproductive: Yes Respiratory: No Ulcer: No Tetanus Vaccination: Unknown Influenza Vaccination: No ?: Not LMP: "AUGUST" : 0 Para: 0 Past Surgical History Surgical History: No Previous Surgery Other Surgery: No Social History Alcohol Use: No Tobacco Use: Yes (PPD smoker) Substance Use: Yes (marijuana yesterday, daily) Allergies-Medications (Allergen,Severity, Reaction): Coded Allergies: No Known Allergies (Verified Adverse Reaction, Unknown, 09/01/17) Reported Meds & Prescriptions Reported Meds & Active Scripts Active Ondansetron Inj (Ondansetron HCl) 4 Mg/2 Ml Inj 4 Mg IV PUSH Q6HR PRN 7 Days Reported Potassium Chloride ER (Potassium Chloride) 10 Meq Cap 1 Tab PO DAILY Review of Systems Except as stated in HPI: all other systems reviewed are Neg Physical Exam Narrative GENERAL: SKIN: Warm and dry. HEAD: Atraumatic. Normocephalic. EYES: Pupils equal and round. No scleral icterus. No injection or drainage. ENT: No nasal bleeding or discharge. Mucous membranes pink and moist. Tongue is midline. No uvula deviation. NECK: Trachea midline. No JVD. CARDIOVASCULAR: Regular rate and rhythm. No murmurs, S3, S4. RESPIRATORY: No accessory muscle use. Clear to auscultation. Breath sounds equal bilaterally. GASTROINTESTINAL: Abdomen soft, tender to palpation in the lower abdomen, nondistended. Hepatic and splenic margins not palpable. MUSCULOSKELETAL: Extremities without clubbing, cyanosis, or edema. No obvious deformities. Full range of motion of the upper and lower extremities bilaterally. 2+ pulses bilaterally. NEUROLOGICAL: Awake and alert. No obvious cranial nerve deficits. Motor grossly within normal limits. Five out of 5 muscle strength in the arms and legs. Normal speech. PSYCHIATRIC: Appropriate mood and affect; insight and judgment normal. Data Data Last Documented VS Vital Signs Date Time Temp Pulse Resp B/P (MAP) Pulse Ox O2 Delivery O2 Flow Rate FiO2 09/01/17 21:05 98.5 102 20 136/99 (111) 99 Room Air Orders Orders Complete Blood Count With Diff (09/01/17 22:30) Comprehensive Metabolic Panel (09/01/17 22:30) Lipase (09/01/17 22:30) Lactic Acid (09/01/17 22:30) Urinalysis - C+S If Indicated (09/01/17 22:30) Ct Abd/Pel W Iv Contrast(Rout) (09/01/17 22:30) Iv Access Insert/Monitor (09/01/17 22:30) Oximetry (09/01/17 22:30) Sodium Chlor 0.9% 1000 Ml Inj (Ns 1000 M (09/01/17 22:30) Ed Urine Pregnancytest Poc (09/01/17 22:30) Morphine Inj (Morphine Inj) (09/01/17 22:45) Ondansetron Inj (Zofran Inj) (09/01/17 22:45) Us Pelvis Comp W Doppler (09/01/17 ) [facility] Medical Decision Making Medical Screen Exam Complete: Yes Emergency Medical Condition: Yes Medical Record Reviewed: Yes Differential Diagnosis Acute on chronic pain versus colitis versus abdominal pain versus cyst versus torsion Narrative Course 42-year-old female that presents to the ED for evaluation of lower abdominal pain. Patient was properly examined and was found to have signs and symptoms of unclear to this time. For the most part her abdomen appears to be benign but she does have a history of significant cyst to the right ovary. At this time recommend labs and imaging. Patient was given IV pain medications and fluids. Case will be signed out to my attending pending dispo. Condition: Stable Babatunde Grajeda Sep 01, 2017 22:40
[2017-09-01 22:45] VITALS: RESP 19; O2SAT 98
[2017-09-01] MEDS ORDERED: ONDANSETRON HCL 4 MG/2 ML VIAL IV PUSH ONE (22:45)
[2017-09-01] MEDS ORDERED: MORPHINE SULFATE 4 MG/ML INJ IV PUSH ONE (22:45)
[2017-09-01 23:06] LABS: AUTOMATED NEUTROPHIL # 10.1 TH/MM3 (1.8-7.7); BASOPHIL # 0.1 TH/MM3 (0-0.2); BASOPHIL % 0.7 % (0.0-2.0); EOSINOPHIL # 0.2 TH/MM3 (0-0.4); EOSINOPHIL % 1.3 % (0.0-4.0); HEMATOCRIT 39.8 % (35.0-46.0); HEMO FLAGS DIFF FINAL; LYMPH % 15.5 % (9.0-44.0); MEAN CELL VOLUME 83.5 FL (80.0-100.0); MEAN CORPUSCULAR HEMOGLOBIN 26.6 PG (27.0-34.0); MEAN CORPUSCULAR HGB CONC 31.8 % (32.0-36.0); MONO % 4.6 % (0.0-8.0); NEUT % 77.9 % (16.0-70.0); PLATELET COUNT 337 TH/MM3 (150-450); RED BLOOD COUNT 4.77 MIL/MM3 (4.00-5.30); RED CELL DISTRIBUTION WIDTH 14.1 % (11.6-17.2)
[2017-09-01 23:25] LABS: ALT (GPT) 14 U/L (10-53); ANION GAP 5 MEQ/L (5-15); AST (GOT) 14 U/L (15-37); BICARBONATE 26.6 MEQ/L (21.0-32.0); BLOOD UREA NITROGEN 11 MG/DL (7-18); CHLORIDE 107 MEQ/L (98-107); GLOMERULAR FILTRATION RATE 129 ML/MIN (>89); POTASSIUM 3.9 MEQ/L (3.5-5.1); SODIUM (NA) 139 MEQ/L (136-145)
--- NOTE | 2017-09-01 23:29 | RADRPT ---
EXAM DATE/TIME: 09/01/2017 23:02 [facility] COMPARISON: CT ABDOMEN & PELVIS W CONTRAST, July 06, 2017, 5:56. US PELVIS,COMP,W DOPPLER, July 06 17, 9:09. INDICATIONS : Pelvic pain. MEDICAL HISTORY : Colitis. SURGICAL HISTORY : None. ENCOUNTER: Subsequent ACUITY: 2 months PAIN SCORE: 10/10 LOCATION: Bilateral pelvis MEASUREMENTS: UTERUS: 7.2 x 4.2 x 4.3 cm ENDOMETRIAL STRIPE: 5 mm RIGHT OVARY: 3.7 x 2.0 x 2.2 cm LEFT OVARY: cm FINDINGS: UTERUS: The uterus is markedly heterogeneous in echogenicity in the fundal region is more prominent than on p revious sonogram. The appearance may reflect an endometrial process or mass with interval degeneratio n such as fibroid. I notice that the patient is scheduled for a CT examination which may be helpful i n further characterizing. RIGHT OVARY: Ovary contains no mass or significant cystic lesion. LEFT OVARY: Obscured by bowel gas. MISCELLANEOUS: No free fluid. CONCLUSION: Abnormal uterine appearance. Unremarkable right ovary. Left ovary obscured Benigno Fernandez MD on September 01, 2017 at 23:23 Board Certified Radiologist. This report was verified electronically.
[2017-09-01 23:31] LABS: ALKALINE PHOSPHATASE 65 U/L (45-117); TOTAL BILIRUBIN ADULT 0.3 MG/DL (0.2-1.0)
--- NOTE | 2017-09-02 00:50 | RADRPT ---
EXAM DATE/TIME: 09/02/2017 00:10 [facility] COMPARISON: CT ABDOMEN & PELVIS W/O CONTRAST, September 16, 2016, 19:39. CT ABDOMEN & PELVIS W CONTRAST, December 08, 2016, 20:56. CT ABDOMEN & PELVIS W CONTRAST, December 23, 2016, 22:32. CT ABDOMEN & PELVIS W C ONTRAST, July 06, 2017, 5:56. INDICATIONS : Abdomen pain. IV CONTRAST: 96 cc Omnipaque 350 (iohexol) IV ORAL CONTRAST: No oral contrast ingested. RADIATION DOSE: 4.46 CTDIvol (mGy) MEDICAL HISTORY : Colitis Ovarian cysts SURGICAL HISTORY : None. ENCOUNTER: Initial ACUITY: 1 day PAIN SCALE: 5/10 LOCATION: Bilateral abdomen TECHNIQUE: Volumetric scanning of the abdomen and pelvis was performed. Using automated exposure control and ad justment of the mA and/or kV according to patient size, radiation dose was kept as low as reasonably achievable to obtain optimal diagnostic quality images. DICOM format image data is available electro nically for review and comparison. FINDINGS: LOWER LUNGS: The visualized lower lungs are clear. LIVER: Stable left lobe liver cyst. Mild focal fatty infiltration adjacent to the falciform ligament. No marilu dence of suspicious mass or biliary ductal dilatation. SPLEEN: Normal size without lesion. PANCREAS: Within normal limits. KIDNEYS: Normal in size and shape. There is no mass, stone or hydronephrosis. ADRENAL GLANDS: Within normal limits. VASCULAR: There is no aortic aneurysm. BOWEL/MESENTERY: The stomach, small bowel, and colon demonstrate no acute abnormality. There is no free intraperitone al air or fluid. ABDOMINAL WALL: Within normal limits. RETROPERITONEUM: There is no lymphadenopathy. BLADDER: No wall thickening or mass. REPRODUCTIVE: Markedly heterogeneous density and enhancement pattern of the uterus however somewhat similar to appe arance on prior examinations. The enhancement and heterogeneity may reflect involvement with fibroids and/or adenomyosis. No definite suspicious adnexal findings in the midst of unopacified bowel throug hout the pelvis. INGUINAL: There is no lymphadenopathy or hernia. MUSCULOSKELETAL: Within normal limits for patient age. CONCLUSION: Heterogeneous appearance of the uterus as above. No definite acute findings. Benigno Fernandez MD on September 02, 2017 at 0:27 Board Certified Radiologist. This report was verified electronically.
--- NOTE | 2017-09-02 02:19 | PD ---
Data Data Last Documented VS Vital Signs Date Time Temp Pulse Resp B/P (MAP) Pulse Ox O2 Delivery O2 Flow Rate FiO2 09/01/17 22:45 19 98 Room Air 09/01/17 21:05 98.5 102 Orders Orders Complete Blood Count With Diff (09/01/17 22:30) Comprehensive Metabolic Panel (09/01/17 22:30) Lipase (09/01/17 22:30) Lactic Acid (09/01/17 22:30) Urinalysis - C+S If Indicated (09/01/17 22:30) Ct Abd/Pel W Iv Contrast(Rout) (09/01/17 22:30) Iv Access Insert/Monitor (09/01/17 22:30) Oximetry (09/01/17 22:30) Sodium Chlor 0.9% 1000 Ml Inj (Ns 1000 M (09/01/17 22:30) Ed Urine Pregnancytest Poc (09/01/17 22:30) Morphine Inj (Morphine Inj) (09/01/17 22:45) Ondansetron Inj (Zofran Inj) (09/01/17 22:45) Us Pelvis Comp W Doppler (09/01/17 ) Iohexol 350 Inj (Omnipaque 350 Inj) (09/01/17 21:04) Mandatory Outpatient Referral (09/02/17 01:58) Labs Laboratory Tests Test 09/01/17 22:55 White Blood Count 13.0 TH/MM3 Red Blood Count 4.77 MIL/MM3 Hemoglobin 12.7 GM/DL Hematocrit 39.8 % Mean Corpuscular Volume 83.5 FL Mean Corpuscular Hemoglobin 26.6 PG Mean Corpuscular Hemoglobin Concent 31.8 % Red Cell Distribution Width 14.1 % Platelet Count 337 TH/MM3 Mean Platelet Volume 6.8 FL Neutrophils (%) (Auto) 77.9 % Lymphocytes (%) (Auto) 15.5 % Monocytes (%) (Auto) 4.6 % Eosinophils (%) (Auto) 1.3 % Basophils (%) (Auto) 0.7 % Neutrophils # (Auto) 10.1 TH/MM3 Lymphocytes # (Auto) 2.0 TH/MM3 Monocytes # (Auto) 0.6 TH/MM3 Eosinophils # (Auto) 0.2 TH/MM3 Basophils # (Auto) 0.1 TH/MM3 CBC Comment DIFF FINAL Differential Comment Blood Urea Nitrogen 11 MG/DL Creatinine 0.62 MG/DL Random Glucose 81 MG/DL Total Protein 7.8 GM/DL Albumin 3.9 GM/DL Calcium Level 9.0 MG/DL Alkaline Phosphatase 65 U/L Aspartate Amino Transf (AST/SGOT) 14 U/L Alanine Aminotransferase (ALT/SGPT) 14 U/L Total Bilirubin 0.3 MG/DL Sodium Level 139 MEQ/L Potassium Level 3.9 MEQ/L Chloride Level 107 MEQ/L Carbon Dioxide Level 26.6 MEQ/L Anion Gap 5 MEQ/L Estimat Glomerular Filtration Rate 129 ML/MIN Lactic Acid Level 0.6 mmol/L Lipase 176 U/L [facility] Medical Record Reviewed: Yes Supervised Visit with WAQAS: No Narrative Course This patient was initially seen by ANABELLE Desir and workup was ordered. However patient was then transferred to my care to follow-up and disposition. I reviewed the entirety of the workup with the patient. Lab studies are reasonably normal Ultrasound reveals a normal right ovary but the left was secured by bowel gas. She does have abnormal uterine findings CT of abdomen and pelvis was done as well. I reviewed those with her. Basically she is had history of known enlarging left ovarian mass and it's been recommended many months ago she follow up with last sawyer for removal. Patient has never followed through with that. She says she has no health insurance. Therefore put through a mandatory referral for gynecology. She is stable for outpatient follow-up however. She has a soft benign nontender abdomen Diagnosis Primary Impression: Ovarian mass, left Additional Impression: Abdominal pain Qualified Codes: R10.84 - Generalized abdominal pain Additional Instruction: Follow-up with gynecology pit manager should be contacting you to assist with this Med/Other Pt SpecificInfo: Other Disposition: 01 DISCHARGE HOME Condition: Stable Zaid Garibay MD Sep 02, 2017 02:19
== END 2017-09-02 02:32 | disposition home or self-care (01) ==
LOC: NEPE 21:03
DX: N83.202 Unspecified ovarian cyst, left side (principal); R10.30 Lower abdominal pain, unspecified; Z72.0 Tobacco use
CPT/HCPCS: 74177; 76856; 80053; 83605; 83690; 84703; 85025; 93975; 96361; 96374; 96375; 99285; J2270; J2405; J7030; Q9967

== ENCOUNTER 2017-11-03 12:03 | Emergency (ER) | payer SELFPAY ==
[~2017-11-03] VITALS: Ht 162.6 cm; Wt 50.0 kg
[2017-11-03] MEDS ORDERED: IOHEXOL 350 MG/ML 10 ML VIAL (for RAD DIAG) IVCONTRAST ONE (12:04)
[2017-11-03 12:05] VITALS: BP 138/99; PULSE 95; RESP 15; TEMP 98.8; O2SAT 97
[2017-11-03] MEDS ORDERED: SODIUM CHLOR 0.9% 1000 ML INJ 1,000 ML IV SCH (12:21)
--- NOTE | 2017-11-03 12:28 | PD ---
HPI Chief Complaint: Abdominal Pain Time Seen by Provider: 12:12 Travel History International Travel<30 days: No Contact w/Intl Traveler<30days: No Traveled to known affect area: No History of Present Illness HPI 42-year-old female with a history of a left ovarian mass, colitis, and cannaboid hyperemesis syndrome presents to the emergency department complaining of abdominal pain, nausea, and vomiting for 3-4 days. It is difficult to obtain a history as patient is retching and actively vomiting upon my evaluation. Her boyfriend assists in the history today. Patient denies excessive cannabinoid use, new medications, or recent travel. Boyfriends insists that her symptoms are because of a "cyst" in her stomach referring to the ovarian mass found earlier this year. Patient is unable tell if she has followed up as discussed with the primary care physician. Her last CT abdomen and pelvis was in July this year. States her symptoms are similar to previous episodes but feels that this is worse than previous. PFSH Past Medical History Blood Disorders: No Anxiety: No Depression: No Cancer: No Cardiovascular Problems: No Diminished Hearing: No Gastrointestinal Disorders: Yes (colitis) GERD: No Gout: Yes Genitourinary: No Hiatal Hernia: No Immune Disorder: No Musculoskeletal: No Neurologic: No Psychiatric: No Reproductive: Yes (ovarian cyst) Respiratory: No Ulcer: No Tetanus Vaccination: Unknown Influenza Vaccination: No ?: Not LMP: 10/27/17 : 0 Para: 0 Past Surgical History Surgical History: No Previous Surgery Other Surgery: No Social History Alcohol Use: No Tobacco Use: Yes (PPD smoker) Substance Use: Yes (marijuana yesterday, daily) Allergies-Medications (Allergen,Severity, Reaction): Coded Allergies: No Known Allergies (Verified Adverse Reaction, Unknown, 11/03/17) Reported Meds & Prescriptions Reported Meds & Active Scripts Active Zofran (Ondansetron HCl) 4 Mg Tab 4 Mg PO Q8HR PRN 5 Days Reported Potassium Chloride ER (Potassium Chloride) 10 Meq Cap 1 Tab PO DAILY Review of Systems Except as stated in HPI: all other systems reviewed are Neg Physical Exam Narrative GENERAL: Well-developed well-nourished, in moderate distress. Reassessed 3 times- patient resting in bed in mild discomfort. SKIN: Focused skin assessment warm/dry. HEAD: Atraumatic. Normocephalic. EYES: Pupils equal and round. No scleral icterus. No injection or drainage. ENT: No nasal bleeding or discharge. Mucous membranes pink and moist. Poor dentition NECK: Trachea midline. No JVD. CARDIOVASCULAR: Regular rate and rhythm. No murmur appreciated. RESPIRATORY: No accessory muscle use. Clear to auscultation. Breath sounds equal bilaterally. GASTROINTESTINAL: Abdomen soft, non-tender, nondistended. Hepatic and splenic margins not palpable. MUSCULOSKELETAL: No obvious deformities. No clubbing. No cyanosis. No edema. NEUROLOGICAL: Awake and alert. No obvious cranial nerve deficits. Motor grossly within normal limits. Normal speech. PSYCHIATRIC: Appropriate mood and affect; insight and judgment normal. Data Data Last Documented VS Vital Signs Date Time Temp Pulse Resp B/P (MAP) Pulse Ox O2 Delivery O2 Flow Rate FiO2 11/03/17 19:19 11/03/17 15:15 68 16 100 Room Air 11/03/17 12:05 98.8 Orders Orders Metoclopramide Inj (Reglan Inj) (11/03/17 12:30) Complete Blood Count With Diff (11/03/17 12:21) Comprehensive Metabolic Panel (11/03/17 12:21) Lipase (11/03/17 12:21) Urinalysis - C+S If Indicated (11/03/17 12:21) Iv Access Insert/Monitor (11/03/17 12:21) NPO (11/03/17 12:21) Sodium Chlor 0.9% 1000 Ml Inj (Ns 1000 M (11/03/17 12:21) Ed Urine Pregnancytest Poc (11/03/17 12:21) Morphine Inj (Morphine Inj) (11/03/17 12:30) Morphine Inj (Morphine Inj) (11/03/17 12:45) Metoclopramide Inj (Reglan Inj) (11/03/17 13:15) Bhcg Screen Qualitative (11/03/17 14:21) Ondansetron Inj (Zofran Inj) (11/03/17 14:45) Morphine Inj (Morphine Inj) (11/03/17 15:15) Morphine Inj (Morphine Inj) (11/03/17 15:15) Ct Abd/Pel W Iv Contrast(Rout) (11/03/17 ) Iohexol 350 Inj (Omnipaque 350 Inj) (11/03/17 12:04) Ed Discharge Order (11/03/17 17:44) Labs Laboratory Tests Test 11/03/17 12:40 11/03/17 15:20 White Blood Count 14.7 TH/MM3 Red Blood Count 4.40 MIL/MM3 Hemoglobin 12.9 GM/DL Hematocrit 36.8 % Mean Corpuscular Volume 83.7 FL Mean Corpuscular Hemoglobin 29.2 PG Mean Corpuscular Hemoglobin Concent 34.9 % Red Cell Distribution Width 14.8 % Platelet Count 370 TH/MM3 Mean Platelet Volume 6.4 FL Neutrophils (%) (Auto) 78.6 % Lymphocytes (%) (Auto) 15.6 % Monocytes (%) (Auto) 4.1 % Eosinophils (%) (Auto) 1.2 % Basophils (%) (Auto) 0.5 % Neutrophils # (Auto) 11.6 TH/MM3 Lymphocytes # (Auto) 2.3 TH/MM3 Monocytes # (Auto) 0.6 TH/MM3 Eosinophils # (Auto) 0.2 TH/MM3 Basophils # (Auto) 0.1 TH/MM3 CBC Comment DIFF FINAL Differential Comment Blood Urea Nitrogen 7 MG/DL Creatinine 0.74 MG/DL Random Glucose 106 MG/DL Total Protein 8.3 GM/DL Albumin 4.4 GM/DL Calcium Level 9.2 MG/DL Alkaline Phosphatase 61 U/L Aspartate Amino Transf (AST/SGOT) 17 U/L Alanine Aminotransferase (ALT/SGPT) 18 U/L Total Bilirubin 0.2 MG/DL Sodium Level 139 MEQ/L Potassium Level 3.2 MEQ/L Chloride Level 107 MEQ/L Carbon Dioxide Level 24.4 MEQ/L Anion Gap 8 MEQ/L Estimat Glomerular Filtration Rate 105 ML/MIN Lipase 142 U/L Urine Color YELLOW Urine Turbidity HAZY Urine pH 7.0 Urine Specific [place] 1.014 Urine Protein TRACE mg/dL Urine Glucose (UA) TRACE mg/dL Urine Ketones NEG mg/dL Urine Occult Blood NEG Urine Nitrite NEG Urine Bilirubin NEG Urine Urobilinogen LESS THAN 2.0 MG/DL Urine Leukocyte Esterase NEG Urine RBC 2 /hpf Urine WBC 4 /hpf Urine Squamous Epithelial Cells 4 /hpf Urine Amorphous Sediment RARE Microscopic Urinalysis Comment CULT NOT INDICATED MDM Medical Decision Making Medical Screen Exam Complete: Yes Emergency Medical Condition: Yes Differential Diagnosis Cannabinoid hyperemesis syndrome, nausea and vomiting, colitis, ovarian cyst Narrative Course 42-year-old female with a history of a left ovarian mass, colitis, and cannaboid hyperemesis syndrome presents to the emergency department complaining of abdominal pain, nausea, and vomiting for 3-4 days. It is difficult to obtain a history as patient is retching and actively vomiting upon my evaluation. Her boyfriend assists in the history today. Patient denies excessive cannabinoid use, new medications, or recent travel. Boyfriends insists that her symptoms are because of a "cyst" in her stomach referring to the ovarian mass found earlier this year. Patient is unable tell if she has followed up as discussed with the primary care physician. Her last CT abdomen and pelvis was in July this year. States her symptoms are similar to previous episodes but feels that this is worse than previous. Vital signs stable. Upon entering the room to examine the patient, there is a strong odor of marijuana. As I was asking for more information regarding her abdominal pain, I mentioned previous diagnoses to include cannabinoid hyperemesis syndrome. The patient and significant other became very defensive and stated that this was not the cause of her pain, nausea, and vomiting. Reassessment of patient- Pt resting comfortably, I am able to assess her pain, abdomen, and obtain a better history. Says her abdominal pain is cyclic, demonstrated today. Denies vaginal discharge. Point of care negative today. Laboratory Tests Test 11/03/17 12:40 11/03/17 15:20 White Blood Count 14.7 TH/MM3 Red Blood Count 4.40 MIL/MM3 Hemoglobin 12.9 GM/DL Hematocrit 36.8 % Mean Corpuscular Volume 83.7 FL Mean Corpuscular Hemoglobin 29.2 PG Mean Corpuscular Hemoglobin Concent 34.9 % Red Cell Distribution Width 14.8 % Platelet Count 370 TH/MM3 Mean Platelet Volume 6.4 FL Neutrophils (%) (Auto) 78.6 % Lymphocytes (%) (Auto) 15.6 % Monocytes (%) (Auto) 4.1 % Eosinophils (%) (Auto) 1.2 % Basophils (%) (Auto) 0.5 % Neutrophils # (Auto) 11.6 TH/MM3 Lymphocytes # (Auto) 2.3 TH/MM3 Monocytes # (Auto) 0.6 TH/MM3 Eosinophils # (Auto) 0.2 TH/MM3 Basophils # (Auto) 0.1 TH/MM3 CBC Comment DIFF FINAL Differential Comment Blood Urea Nitrogen 7 MG/DL Creatinine 0.74 MG/DL Random Glucose 106 MG/DL Total Protein 8.3 GM/DL Albumin 4.4 GM/DL Calcium Level 9.2 MG/DL Alkaline Phosphatase 61 U/L Aspartate Amino Transf (AST/SGOT) 17 U/L Alanine Aminotransferase (ALT/SGPT) 18 U/L Total Bilirubin 0.2 MG/DL Sodium Level 139 MEQ/L Potassium Level 3.2 MEQ/L Chloride Level 107 MEQ/L Carbon Dioxide Level 24.4 MEQ/L Anion Gap 8 MEQ/L Estimat Glomerular Filtration Rate 105 ML/MIN Lipase 142 U/L Urine Color YELLOW Urine Turbidity HAZY Urine pH 7.0 Urine Specific [place] 1.014 Urine Protein TRACE mg/dL Urine Glucose (UA) TRACE mg/dL Urine Ketones NEG mg/dL Urine Occult Blood NEG Urine Nitrite NEG Urine Bilirubin NEG Urine Urobilinogen LESS THAN 2.0 MG/DL Urine Leukocyte Esterase NEG Urine RBC 2 /hpf Urine WBC 4 /hpf Urine Squamous Epithelial Cells 4 /hpf Urine Amorphous Sediment RARE Microscopic Urinalysis Comment CULT NOT INDICATED CT abdomen and pelvis are consistent with previous imaging studies. There is no obvious acute process on the study. Reviewed the chart and medical record and found that patient was given a minutes or referral for a safety clothing and equipment developer. Patient states that she has not been however. I will discharge patient with Zofran and advised to follow-up with COMPUTER AIDED DESIGN TECHNICIAN and gastrointestinal doctor. [facility] information given as well. Diagnosis Primary Impression: Fibroid Qualified Codes: D25.9 - Leiomyoma of uterus, unspecified Additional Impression: Nausea & vomiting Qualified Codes: G43.A0 - Cyclical vomiting, not intractable Referrals: [facility] Fiberglass Finisher Chair Car Driver Additional Instructions: Follow-up with a aeronautical design engineer and safety clothing and equipment developer as discussed. You should follow-up at [facility] within 1 week. He should follow the diet for a few days later stomach settles. (Bananas, applesauce, rice, toast) with plenty of fluid intake. Take medication as prescribed If your symptoms persist or worsen return to the emergency department. Scripts Ondansetron (Zofran) 4 Mg Tab 4 MG PO Q8HR Y for NAUSEA OR VOMITING for 5 Days, TAB 0 Refills Prov: Caroline Heaton 11/03/17 Disposition: 01 DISCHARGE HOME Condition: Stable Caroline Heaton Nov 03, 2017 12:28
[2017-11-03] MEDS ORDERED: MORPHINE SULFATE 2 MG/ML INJ IM ONE (12:30)
[2017-11-03] MEDS ORDERED: METOCLOPRAMIDE HCL 10 MG/2 ML VIAL IM SCH (12:30)
[2017-11-03] MEDS ORDERED: MORPHINE SULFATE 2 MG/ML INJ IV PUSH ONE ×3 (12:45→15:15)
[2017-11-03 13:03] LABS: AUTOMATED NEUTROPHIL # 11.6 TH/MM3 (1.8-7.7); BASOPHIL # 0.1 TH/MM3 (0-0.2); BASOPHIL % 0.5 % (0.0-2.0); EOSINOPHIL # 0.2 TH/MM3 (0-0.4); EOSINOPHIL % 1.2 % (0.0-4.0); HEMATOCRIT 36.8 % (35.0-46.0); HEMOGLOBIN 12.9 GM/DL (11.6-15.3); LYMPH % 15.6 % (9.0-44.0); LYMPHOCYTE # 2.3 TH/MM3 (1.0-4.8); MEAN CELL VOLUME 83.7 FL (80.0-100.0); MEAN CORPUSCULAR HEMOGLOBIN 29.2 PG (27.0-34.0); MEAN CORPUSCULAR HGB CONC 34.9 % (32.0-36.0); MEAN PLATELET VOLUME 6.4 FL (7.0-11.0); MONO % 4.1 % (0.0-8.0); MONOCYTE # 0.6 TH/MM3 (0-0.9); NEUT % 78.6 % (16.0-70.0); PLATELET COUNT 370 TH/MM3 (150-450); RED CELL DISTRIBUTION WIDTH 14.8 % (11.6-17.2); WHITE BLOOD COUNT 14.7 TH/MM3 (4.0-11.0)
[2017-11-03 13:08] LABS: ALBUMIN 4.4 GM/DL (3.4-5.0); ALT (GPT) 18 U/L (10-53); AST (GOT) 17 U/L (15-37); BICARBONATE 24.4 MEQ/L (21.0-32.0); BLOOD UREA NITROGEN 7 MG/DL (7-18); CALCIUM 9.2 MG/DL (8.5-10.1); CHLORIDE 107 MEQ/L (98-107); CREATININE 0.74 MG/DL (0.50-1.00); GLOMERULAR FILTRATION RATE 105 ML/MIN (>89); GLUCOSE,RANDOM 106 MG/DL (74-106); LIPASE 142 U/L (73-393); SODIUM (NA) 139 MEQ/L (136-145)
[2017-11-03 13:10] LABS: ALKALINE PHOSPHATASE 61 U/L (45-117); TOTAL BILIRUBIN ADULT 0.2 MG/DL (0.2-1.0); TOTAL PROTEIN 8.3 GM/DL (6.4-8.2)
[2017-11-03] MEDS ORDERED: METOCLOPRAMIDE HCL 10 MG/2 ML VIAL IV SCH (13:15)
--- NOTE | 2017-11-03 14:21 | PD ---
Physical Exam Narrative I, Dr. Ricci, have reviewed the advance practice practitioner's documentation and am in agreement, met with the patient face to face, made the diagnosis, and the medical decision making was done by me. *My assessment and Findings: Colitis vs. appendicitis vs. gastroenteritis 42yo F here with lower abdominal pain for a few days. Said she started having nausea and vomiting today. Labs reviewed, leukocytosis at 14.7. Mild hypokalemia at 3.2. Lipase normal. LFTs normal. CT a/p showed inhomogeneous uterus with possible fibroids with left adnexal cyst most likely ovarian. Pt knows about this but has not follow up with [facility]PR[facility]. Pt given mrophine, zofran and reglan with improvement of symptoms. Return precautions given. Data Data Last Documented VS Vital Signs Date Time Temp Pulse Resp B/P (MAP) Pulse Ox O2 Delivery O2 Flow Rate FiO2 11/03/17 15:15 68 16 147/89 (108) 100 Room Air 11/03/17 12:05 98.8 Orders Orders Metoclopramide Inj (Reglan Inj) (11/03/17 12:30) Complete Blood Count With Diff (11/03/17 12:21) Comprehensive Metabolic Panel (11/03/17 12:21) Lipase (11/03/17 12:21) Urinalysis - C+S If Indicated (11/03/17 12:21) Iv Access Insert/Monitor (11/03/17 12:21) NPO (11/03/17 12:21) Sodium Chlor 0.9% 1000 Ml Inj (Ns 1000 M (11/03/17 12:21) Ed Urine Pregnancytest Poc (11/03/17 12:21) Morphine Inj (Morphine Inj) (11/03/17 12:30) Morphine Inj (Morphine Inj) (11/03/17 12:45) Metoclopramide Inj (Reglan Inj) (11/03/17 13:15) Bhcg Screen Qualitative (11/03/17 14:21) Ondansetron Inj (Zofran Inj) (11/03/17 14:45) Morphine Inj (Morphine Inj) (11/03/17 15:15) Morphine Inj (Morphine Inj) (11/03/17 15:15) Ct Abd/Pel W Iv Contrast(Rout) (11/03/17 ) Iohexol 350 Inj (Omnipaque 350 Inj) (11/03/17 12:04) Ed Discharge Order (11/03/17 17:44) Labs Laboratory Tests Test 11/03/17 12:40 11/03/17 15:20 White Blood Count 14.7 TH/MM3 Red Blood Count 4.40 MIL/MM3 Hemoglobin 12.9 GM/DL Hematocrit 36.8 % Mean Corpuscular Volume 83.7 FL Mean Corpuscular Hemoglobin 29.2 PG Mean Corpuscular Hemoglobin Concent 34.9 % Red Cell Distribution Width 14.8 % Platelet Count 370 TH/MM3 Mean Platelet Volume 6.4 FL Neutrophils (%) (Auto) 78.6 % Lymphocytes (%) (Auto) 15.6 % Monocytes (%) (Auto) 4.1 % Eosinophils (%) (Auto) 1.2 % Basophils (%) (Auto) 0.5 % Neutrophils # (Auto) 11.6 TH/MM3 Lymphocytes # (Auto) 2.3 TH/MM3 Monocytes # (Auto) 0.6 TH/MM3 Eosinophils # (Auto) 0.2 TH/MM3 Basophils # (Auto) 0.1 TH/MM3 CBC Comment DIFF FINAL Differential Comment Blood Urea Nitrogen 7 MG/DL Creatinine 0.74 MG/DL Random Glucose 106 MG/DL Total Protein 8.3 GM/DL Albumin 4.4 GM/DL Calcium Level 9.2 MG/DL Alkaline Phosphatase 61 U/L Aspartate Amino Transf (AST/SGOT) 17 U/L Alanine Aminotransferase (ALT/SGPT) 18 U/L Total Bilirubin 0.2 MG/DL Sodium Level 139 MEQ/L Potassium Level 3.2 MEQ/L Chloride Level 107 MEQ/L Carbon Dioxide Level 24.4 MEQ/L Anion Gap 8 MEQ/L Estimat Glomerular Filtration Rate 105 ML/MIN Lipase 142 U/L Urine Color YELLOW Urine Turbidity HAZY Urine pH 7.0 Urine Specific [place] 1.014 Urine Protein TRACE mg/dL Urine Glucose (UA) TRACE mg/dL Urine Ketones NEG mg/dL Urine Occult Blood NEG Urine Nitrite NEG Urine Bilirubin NEG Urine Urobilinogen LESS THAN 2.0 MG/DL Urine Leukocyte Esterase NEG Urine RBC 2 /hpf Urine WBC 4 /hpf Urine Squamous Epithelial Cells 4 /hpf Urine Amorphous Sediment RARE Microscopic Urinalysis Comment CULT NOT INDICATED MDM Supervised Visit with WAQAS: Yes Referrals: [facility] Scripts Ondansetron (Zofran) 4 Mg Tab 4 MG PO Q8HR Y for NAUSEA OR VOMITING for 5 Days, TAB 0 Refills Prov: Caroline Heaton 11/03/17 Disposition: 01 DISCHARGE HOME Condition: Stable Toma Ricci DO Nov 03, 2017 14:21
[2017-11-03] MEDS ORDERED: ONDANSETRON HCL 4 MG/2 ML VIAL IV PUSH ONE (14:45)
[2017-11-03 15:15] VITALS: BP 147/89; PULSE 68; RESP 16; O2SAT 100
[2017-11-03 15:45] LABS: AMORPHOUS SEDIMENT, URINE RARE; BILIRUBIN, URINE NEG (NEG); BLOOD, URINE NEG (NEG); GLUCOSE,URINE TRACE mg/dL (NEG); KETONE, URINE NEG (NEG); NITRITE,URINE NEG (NEG); SQUAMOUS EPITHELIAL CELL URINE 4 /hpf (0-5); URINE COLOR YELLOW (YELLW/STRAW); URINE LEUKOCYTE ESTERASE NEG (NEG)
--- NOTE | 2017-11-03 17:35 | RADRPT ---
EXAM DATE/TIME: 11/03/2017 17:10 [place] COMPARISON: CT ABDOMEN & PELVIS W CONTRAST, September 02, 2017, 0:10. INDICATIONS : Diffuse abdomen pain past 4 days. History of colitis. IV CONTRAST: 75 cc Omnipaque 350 (iohexol) IV ORAL CONTRAST: No oral contrast ingested. RADIATION DOSE: 4.21 CTDIvol (mGy) MEDICAL HISTORY : Colitis Ovarian cysts SURGICAL HISTORY : None. ENCOUNTER: Initial ACUITY: 4 - 6 days PAIN SCALE: 10/10 LOCATION: Bilateral abdomen TECHNIQUE: Volumetric scanning of the abdomen and pelvis was performed. Using automated exposure control and adjustment of the mA and/or kV according to patient size, radiation dose was kept as low as reasonably achievable to obtain optimal diagnostic quality images. DICOM format image data is av ailable electronically for review and comparison. FINDINGS: CT Abdomen: The liver, spleen, pancreas, kidneys, adrenals are unremarkable. There is no evidence for any appreciable pathological adenopathy, free fluid, or bowel obstruction. CT pelvis: There is an approximate 3.3 cm well-defined cystic area in the left adnexa slightly lobula r may be an ovarian cyst. The uterus is inhomogeneous possibility of uterine fibroid is difficult to exclude and overall appearance has not significantly changed. There may be a fibroid within the uteru s measuring 2.7 cm in size. CONCLUSION: Inhomogeneous uterus and possible fibroids with left adnexal cyst most likely ovarian . Jania Herbert MD on November 03, 2017 at 17:28 Board Certified Radiologist. This report was verified electronically.
[2017-11-03] MEDS ORDERED: ZOFR4TAB PO (17:43)
== END 2017-11-03 19:00 | disposition home or self-care (01) ==
LOC: NEPC 12:03
DX: D25.9 Leiomyoma of uterus, unspecified (principal); G43.A0 Cyclical vomiting, in migraine, not intractable; E87.6 Hypokalemia; N83.209 Unspecified ovarian cyst, unspecified side; M10.9 Gout, unspecified; F17.210 Nicotine dependence, cigarettes, uncomplicated; F12.20 Cannabis dependence, uncomplicated; Z79.899 Other long term (current) drug therapy
CPT/HCPCS: 74177; 80053; 81001; 83690; 84703; 85025; 96374; 96375; 96376; 99285; J2270; J2405; J2765; J7030; Q9967

== ENCOUNTER 2017-11-06 18:07 | Emergency (ER) | payer SELFPAY ==
[~2017-11-06] VITALS: Ht 162.6 cm; Wt 41.0 kg
[~2017-11-06 18:07] MED LIST changes: -ONDA4INJ2 IV PUSH; +ZOFR4TAB PO
[2017-11-06 18:08] VITALS: BP 153/90; PULSE 73; RESP 18; TEMP 98.7; O2SAT 98
[2017-11-06] MEDS ORDERED: SODIUM CHLOR 0.9% 1000 ML INJ 1,000 ML IV SCH (20:51)
--- NOTE | 2017-11-06 20:57 | PD ---
HPI Chief Complaint: Abdominal Pain Time Seen by Provider: 20:51 Travel History International Travel<30 days: No Contact w/Intl Traveler<30days: No Traveled to known affect area: No History of Present Illness HPI 42-year-old female presents to the emergency department for complaint of abdominal pain no bowel movement 4 days vomiting and poor oral intake. Patient was seen 11/03/17 for the same pain and was diagnosed with uterine fibroids and left ovarian cyst. Patient reports she has had prior history of colitis. Patient does not report diarrhea or mucoid or bloody stools. Patient reportedly had colonoscopy in the past and was told that she had some form of colitis but she did not follow-up. Patient denies fever or chills. No report of hematemesis coffee-ground emesis melena hematochezia. Patient states that she was given a prescription for Zofran but did not fill the prescription and she did not feel she will be able to keep the medication down patient takes oral potassium [id number]. Patient stopped taking potassium as nausea and vomiting. Patient does not report weight loss. Last menstrual period normal for her and last month 10/27/17. Patient reports symptoms are the same that she's had for the past several months; she has not followed up with primary , medical billing and coding specialist, or tornado chaser. [facility] Past Medical History Narrative Medical Gouty arthritis, ovarian cyst, uterine fibroid, colitis; colonoscopy with benign polypectomy; positive tobacco use positive marijuana use: Nursing notes reviewed Blood Disorders: No Anxiety: No Depression: No Cancer: No Cardiovascular Problems: No Diminished Hearing: No Gastrointestinal Disorders: Yes (colitis) GERD: No Gout: Yes Genitourinary: No Hiatal Hernia: No Immune Disorder: No Musculoskeletal: No Neurologic: No Psychiatric: No Reproductive: Yes (ovarian cyst) Respiratory: No Ulcer: No ?: Not LMP: 10/27/17 : 0 Para: 0 Past Surgical History Surgical History: No Previous Surgery Other Surgery: No Social History Alcohol Use: No Tobacco Use: Yes (PPD smoker) Substance Use: Yes (marijuana yesterday, daily) Allergies-Medications (Allergen,Severity, Reaction): Coded Allergies: No Known Allergies (Verified Adverse Reaction, Unknown, 11/06/17) Reported Meds & Prescriptions Reported Meds & Active Scripts Active Zofran (Ondansetron HCl) 4 Mg Tab 4 Mg PO Q8HR PRN 5 Days Reported Potassium Chloride ER (Potassium Chloride) 10 Meq Cap 1 Tab PO DAILY Review of Systems Except as stated in HPI: all other systems reviewed are Neg General / Constitutional: No: Fever, Chills HENT: No: Congestion Cardiovascular: No: Chest Pain or Discomfort Respiratory: No: Shortness of Breath Gastrointestinal: Positive: Nausea, Vomiting, Abdominal Pain, No: Diarrhea, Loss of Appetite Genitourinary: No: Urgency, Frequency, Dysuria Musculoskeletal: No: Myalgias, Arthralgias Skin: No Rash Neurologic: No: Weakness Psychiatric: No: Anxiety Hematologic/Lymphatic: No: Easy Bruising Physical Exam Narrative GENERAL: Thin well-developed female in no acute distress no respiratory distress SKIN: Warm and dry. HEAD: Normocephalic. EYES: No scleral icterus. No injection or drainage. NECK: Supple, trachea midline. No JVD or lymphadenopathy. CARDIOVASCULAR: Regular rate and rhythm without murmurs, gallops, or rubs. RESPIRATORY: Breath sounds equal bilaterally. No accessory muscle use. GASTROINTESTINAL: Abdomen soft, non-tender, nondistended. MUSCULOSKELETAL: No cyanosis, or edema. BACK: Nontender without obvious deformity. No CVA tenderness. Data Data Last Documented VS Vital Signs Date Time Temp Pulse Resp B/P (MAP) Pulse Ox O2 Delivery O2 Flow Rate FiO2 11/06/17 23:55 20 11/06/17 21:02 100 11/06/17 18:08 98.7 73 Room Air Orders Orders Complete Blood Count With Diff (11/06/17 20:51) Comprehensive Metabolic Panel (11/06/17 20:51) Lipase (11/06/17 20:51) Urinalysis - C+S If Indicated (11/06/17 20:51) Abdomen, Flat & Upright (11/06/17 ) Iv Access Insert/Monitor (11/06/17 20:51) Ecg Monitoring (11/06/17 20:51) Oximetry (11/06/17 20:51) Ondansetron Inj (Zofran Inj) (11/06/17 21:00) Sodium Chlor 0.9% 1000 Ml Inj (Ns 1000 M (11/06/17 20:51) Sodium Chloride 0.9% Flush (Ns Flush) (11/06/17 21:00) Ed Urine Pregnancytest Poc (11/06/17 20:51) Sodium Chlor 0.9% 1000 Ml Inj (Ns 1000 M (11/06/17 22:45) Ketorolac Inj (Toradol Inj) (11/06/17 22:45) Pantoprazole Inj (Protonix Inj) (11/06/17 22:45) Cath For Specimen (11/06/17 23:35) Ed Discharge Order (11/07/17 01:07) Labs Laboratory Tests Test 11/06/17 21:05 11/06/17 23:45 White Blood Count 15.8 TH/MM3 Red Blood Count 5.01 MIL/MM3 Hemoglobin 13.5 GM/DL Hematocrit 41.3 % Mean Corpuscular Volume 82.4 FL Mean Corpuscular Hemoglobin 26.9 PG Mean Corpuscular Hemoglobin Concent 32.6 % Red Cell Distribution Width 14.6 % Platelet Count 326 TH/MM3 Mean Platelet Volume 6.6 FL Neutrophils (%) (Auto) 82.3 % Lymphocytes (%) (Auto) 11.3 % Monocytes (%) (Auto) 6.1 % Eosinophils (%) (Auto) 0.1 % Basophils (%) (Auto) 0.2 % Neutrophils # (Auto) 13.0 TH/MM3 Lymphocytes # (Auto) 1.8 TH/MM3 Monocytes # (Auto) 1.0 TH/MM3 Eosinophils # (Auto) 0.0 TH/MM3 Basophils # (Auto) 0.0 TH/MM3 CBC Comment DIFF FINAL Differential Comment Blood Urea Nitrogen 18 MG/DL Creatinine 0.70 MG/DL Random Glucose 98 MG/DL Total Protein 8.4 GM/DL Albumin 4.4 GM/DL Calcium Level 9.7 MG/DL Alkaline Phosphatase 56 U/L Aspartate Amino Transf (AST/SGOT) 14 U/L Alanine Aminotransferase (ALT/SGPT) 17 U/L Total Bilirubin 0.9 MG/DL Sodium Level 134 MEQ/L Potassium Level 3.5 MEQ/L Chloride Level 97 MEQ/L Carbon Dioxide Level 29.4 MEQ/L Anion Gap 8 MEQ/L Estimat Glomerular Filtration Rate 112 ML/MIN Lipase 60 U/L Urine Color YELLOW Urine Turbidity HAZY Urine pH 6.0 Urine Specific [place] 1.029 Urine Protein 30 mg/dL Urine Glucose (UA) NEG mg/dL Urine Ketones 80 mg/dL Urine Occult Blood SMALL Urine Nitrite NEG Urine Bilirubin NEG Urine Urobilinogen 2.0 MG/DL Urine Leukocyte Esterase NEG Urine RBC 3 /hpf Urine WBC 5 /hpf Urine Squamous Epithelial Cells 13 /hpf Urine Bacteria OCC /hpf Urine Mucus MANY /lpf Microscopic Urinalysis Comment CULT NOT INDICATED MDM Medical Decision Making Medical Screen Exam Complete: Yes Emergency Medical Condition: Yes Medical Record Reviewed: Yes Interpretation(s) Last Impressions Abdomen X-Ray 11/06/17 0000 Signed Impressions: Service Date/Time: Monday, November 06, 2017 21:46 - CONCLUSION: 1. No acute findings. Oz Vora MD CBC & BMP Diagram 11/06/17 21:05 Total Protein 8.4 H, Albumin 4.4, Calcium Level 9.7, Alkaline Phosphatase 56, Aspartate Amino Transf (AST/SGOT) 14 L, Alanine Aminotransferase (ALT/SGPT) 17, Total Bilirubin 0.9 Vital Signs Date Time Temp Pulse Resp B/P (MAP) Pulse Ox O2 Delivery O2 Flow Rate FiO2 11/06/17 23:55 20 11/06/17 21:02 100 11/06/17 18:08 98.7 73 18 153/90 (111) 98 Room Air Differential Diagnosis Chronic recurrent abdominal pain, bowel obstruction, gastroenteritis, pancreatitis, gastritis, peptic ulcer disease, dehydration, electronic disturbance Narrative Course IV access obtained specimens collected and sent for resulting IV fluids administered along with Zofran 4 mg IV Patient given Protonix and Toradol Patient states pain has resolved and resting comfortably Patient has leukocytosis most likely reflects poor oral intake distress demargination and dehydration. Patient is afebrile. Lab values are otherwise in normal range and patient abdomen is soft nontender without guarding or rebound. Patient did not fill her prescription for Zofran as she thought she would have to swallow the medication and therefore has not taken anything for her complaint of nausea or vomiting. Flat and upright imaging study reveals no bowel obstruction or free air nonspecific bowel gas pattern is identified. Patient given oral trial of hydration and tolerates well is stable for outpatient management. Patient's had multiple CT abdomen and pelvis which reveals no acute process and ultrasound studies which identified persistent adnexal mass consistent with uterine fibroid and ovarian cyst patient will need to follow-up with [facility] regarding this and is aware of her need for [facility] follow-up. At 1 AM patient tolerating oral fluids well feels comfortable; states no abdominal pain is desirous of being discharged to home. Patient stable for outpatient management. Diagnosis Primary Impression: Gastritis Qualified Codes: K29.70 - Gastritis, unspecified, without bleeding Additional Impression: Nausea & vomiting Qualified Codes: R11.2 - Nausea with vomiting, unspecified Referrals: Brush Worker call for appointment Primary Care Physician 3 days Patient Instructions: General Instructions Additional Instructions: Follow clear liquid diet for next 12-24 hours advance as tolerated bland/Brennon diet and regular diet avoiding fried and fatty foods Takes Zofran as prescribed as needed under the tongue to control nausea and/or vomiting Monitor temperature for fever take acetaminophen/Tylenol as needed for fever 100.4F or greater Follow-up with tornado chaser regarding history of uterine fibroids and history of ovarian cyst Follow-up with your primary care provider regarding ongoing gastritis Return to the emergency department for any concerns or change in condition Med/Other Pt SpecificInfo: Prescription(s) given Scripts Ondansetron Odt (Zofran Odt) 4 Mg Tab 4 MG SL Q6HR Y for Nausea/Vomiting, #10 TAB 0 Refills Prov: Jillian Dodson MD 11/07/17 Disposition: 01 DISCHARGE HOME Condition: Stable Jillian Dodson MD Nov 06, 2017 20:57
[2017-11-06] MEDS ORDERED: SODIUM CHLORIDE 0.9% FLUSH 10 ML FLUSH IV FLUSH PRN (21:00)
[2017-11-06] MEDS ORDERED: ONDANSETRON HCL 4 MG/2 ML VIAL IVP ONE (21:00)
[2017-11-06 21:02] VITALS: O2SAT 100
[2017-11-06 21:20] LABS: BASOPHIL % 0.2 % (0.0-2.0); EOSINOPHIL % 0.1 % (0.0-4.0); HEMATOCRIT 41.3 % (35.0-46.0); HEMOGLOBIN 13.5 GM/DL (11.6-15.3); LYMPH % 11.3 % (9.0-44.0); LYMPHOCYTE # 1.8 TH/MM3 (1.0-4.8); MEAN CELL VOLUME 82.4 FL (80.0-100.0); MEAN CORPUSCULAR HEMOGLOBIN 26.9 PG (27.0-34.0); MEAN CORPUSCULAR HGB CONC 32.6 % (32.0-36.0); MEAN PLATELET VOLUME 6.6 FL (7.0-11.0); MONO % 6.1 % (0.0-8.0); NEUT % 82.3 % (16.0-70.0); PLATELET COUNT 326 TH/MM3 (150-450); RED BLOOD COUNT 5.01 MIL/MM3 (4.00-5.30); RED CELL DISTRIBUTION WIDTH 14.6 % (11.6-17.2); WHITE BLOOD COUNT 15.8 TH/MM3 (4.0-11.0)
[2017-11-06 21:44] LABS: ALBUMIN 4.4 GM/DL (3.4-5.0); ALKALINE PHOSPHATASE 56 U/L (45-117); ALT (GPT) 17 U/L (10-53); AST (GOT) 14 U/L (15-37); BICARBONATE 29.4 MEQ/L (21.0-32.0); BLOOD UREA NITROGEN 18 MG/DL (7-18); CALCIUM 9.7 MG/DL (8.5-10.1); CHLORIDE 97 MEQ/L (98-107); GLOMERULAR FILTRATION RATE 112 ML/MIN (>89); GLUCOSE,RANDOM 98 MG/DL (74-106); LIPASE 60 U/L (73-393); SODIUM (NA) 134 MEQ/L (136-145); TOTAL BILIRUBIN ADULT 0.9 MG/DL (0.2-1.0); TOTAL PROTEIN 8.4 GM/DL (6.4-8.2)
--- NOTE | 2017-11-06 22:20 | RADRPT ---
EXAM DATE/TIME: 11/06/2017 21:46 [facility] COMPARISON: No previous studies available for comparison. INDICATIONS : Abdominal pain and vomiting. MEDICAL HISTORY : None. SURGICAL HISTORY : None. ENCOUNTER: Initial ACUITY: 1 week PAIN SCORE: 8/10 LOCATION: Abdomen FINDINGS: Supine and upright views of the abdomen were performed. The abdominal bowel gas pattern is normal. No air fluid levels are seen. No abnormal masses, calcifications, or organomegaly is seen. The visu alized lower lungs are clear. No evidence of free intraperitoneal gas. The osseous structures are u nremarkable. CONCLUSION: 1. No acute findings. Oz Vora MD on November 06, 2017 at 22:17 Board Certified Radiologist. This report was verified electronically.
[2017-11-06] MEDS ORDERED: KETOROLAC TROMETHAMINE 30 MG/ML (IVP) VIAL IV PUSH ONE (22:45)
[2017-11-06] MEDS ORDERED: SODIUM CHLOR 0.9% 1000 ML INJ 1,000 ML IV ONE (22:45)
[2017-11-06] MEDS ORDERED: PANTOPRAZOLE SODIUM 40 MG VIAL IV PUSH ONE (22:45)
[2017-11-06 23:55] VITALS: RESP 20
[2017-11-07 00:05] LABS: BACTERIA, URINE OCC /hpf; BILIRUBIN, URINE NEG (NEG); BLOOD, URINE SMALL (NEG); GLUCOSE,URINE NEG (NEG); KETONE, URINE 80 mg/dL (NEG); MUCUS URINE MANY /lpf (OCC); NITRITE,URINE NEG (NEG); SQUAMOUS EPITHELIAL CELL URINE 13 /hpf (0-5); URINE COLOR YELLOW (YELLW/STRAW); URINE LEUKOCYTE ESTERASE NEG (NEG)
[2017-11-07] MEDS ORDERED: ZOFR4TAB3 SL (01:09)
== END 2017-11-07 01:40 | disposition home or self-care (01) ==
LOC: NEPC 18:07
DX: K29.70 Gastritis, unspecified, without bleeding (principal); F17.210 Nicotine dependence, cigarettes, uncomplicated; N83.202 Unspecified ovarian cyst, left side
CPT/HCPCS: 74019; 80053; 81001; 83690; 84703; 85025; 96374; 96375; 99283; C9113; J1885; J2405; J7030

== ENCOUNTER 2018-02-19 10:50 | Emergency (ER) | payer SELFPAY ==
[~2018-02-19 10:50] MED LIST changes: +ZOFR4TAB3 SL
[2018-02-19 11:11] VITALS: BP 119/57; PULSE 76; RESP 20; TEMP 97.3; O2SAT 97
[2018-02-19] MEDS ORDERED: SODIUM CHLOR 0.9% 1000 ML INJ 1,000 ML IV SCH (11:18)
--- NOTE | 2018-02-19 11:28 | PD ---
HPI . Abdominal pain Chief Complaint: GI Complaint Time Seen by Provider: 11:14 Travel History International Travel<30 days: No Contact w/Intl Traveler<30days: No Traveled to known affect area: No History of Present Illness HPI Patient presents with chief complaint of diffuse abdominal pain. Onset was today. The pain is constant and is described as a ripping sensation which she rates 10/10. It is associated with vomiting and loose stools. No known fever. No modifying factors. Patient reports a history of colitis but states that she takes no medications. She states that she has been seen here for it in the past and that we have not prescribed her any chronic medications. She states she does not have a primary care physician nor does she have a profiling machine set up operator tool. PFSH Past Medical History Blood Disorders: No Anxiety: No Depression: No Cancer: No Cardiovascular Problems: No Diminished Hearing: No Gastrointestinal Disorders: Yes (colitis) GERD: No Gout: Yes Genitourinary: No Hiatal Hernia: No Immune Disorder: No Musculoskeletal: No Neurologic: No Psychiatric: No Reproductive: Yes (ovarian cyst) Respiratory: No Ulcer: No : 0 Para: 0 Past Surgical History Other Surgery: No Social History Alcohol Use: No Tobacco Use: Yes (PPD smoker) Substance Use: Yes (marijuana yesterday, daily) Allergies-Medications (Allergen,Severity, Reaction): Coded Allergies: No Known Allergies (Verified Adverse Reaction, Unknown, 11/06/17) Reported Meds & Prescriptions Reported Meds & Active Scripts Active Zofran (Ondansetron HCl) 4 Mg Tab 4 Mg PO Q8HR PRN 5 Days Reported Potassium Chloride ER (Potassium Chloride) 10 Meq Cap 1 Tab PO DAILY Review of Systems Except as stated in HPI: all other systems reviewed are Neg General / Constitutional: Positive: Chills, No: Fever Gastrointestinal: Positive: Nausea, Vomiting, Diarrhea, Abdominal Pain Genitourinary: No: Urgency, Frequency, Dysuria Physical Exam Narrative GENERAL: The patient is moaning and gagging. She is curled up under a blanket which covers her head. SKIN: Warm and diaphoretic. HEAD: Normocephalic. Atraumatic. EYES: Pupils equal and round. No scleral icterus. No injection or drainage. ENT: No nasal bleeding or discharge. Mucous membranes pink and moist. NECK: Trachea midline. Full range of motion without pain.. CARDIOVASCULAR: Regular tachycardia. RESPIRATORY: No accessory muscle use. Clear to auscultation. Breath sounds equal bilaterally. GASTROINTESTINAL: Abdomen is diffusely tender to palpation. Her abdominal muscles are rigid. MUSCULOSKELETAL: No obvious deformities. NEUROLOGICAL: Awake and alert. No obvious cranial nerve deficits. Motor grossly within normal limits. Normal speech. PSYCHIATRIC: Appropriate mood and affect; insight and judgment normal. Data Data Last Documented VS Vital Signs Date Time Temp Pulse Resp B/P (MAP) Pulse Ox O2 Delivery O2 Flow Rate FiO2 02/19/18 13:13 61 18 144/73 (96) 100 Room Air 02/19/18 11:11 97.3 Orders Orders Complete Blood Count With Diff (02/19/18 11:18) Comprehensive Metabolic Panel (02/19/18 11:18) Lipase (02/19/18 11:18) Lactic Acid (02/19/18 11:18) Urinalysis - C+S If Indicated (02/19/18 11:18) Ct Abd/Pel W Iv Contrast(Rout) (02/19/18 11:18) Iv Access Insert/Monitor (02/19/18 11:18) Morphine Inj (Morphine Inj) (02/19/18 11:30) Ondansetron Inj (Zofran Inj) (02/19/18 11:30) Sodium Chlor 0.9% 1000 Ml Inj (Ns 1000 M (02/19/18 11:18) Sodium Chloride 0.9% Flush (Ns Flush) (02/19/18 11:30) Ed Urine Pregnancytest Poc (02/19/18 11:18) Cath For Specimen (02/19/18 12:06) Drug Screen, Random Urine (02/19/18 12:14) Iohexol 350 Inj (Omnipaque 350 Inj) (02/19/18 12:59) Lorazepam Inj (Ativan Inj) (02/19/18 13:00) Haloperidol Inj (Haldol Inj) (02/19/18 13:00) Labs Laboratory Tests Test 02/19/18 11:31 02/19/18 12:10 02/19/18 12:20 White Blood Count 16.0 TH/MM3 Red Blood Count 4.67 MIL/MM3 Hemoglobin 12.4 GM/DL Hematocrit 38.2 % Mean Corpuscular Volume 81.9 FL Mean Corpuscular Hemoglobin 26.5 PG Mean Corpuscular Hemoglobin Concent 32.4 % Red Cell Distribution Width 15.2 % Platelet Count 341 TH/MM3 Mean Platelet Volume 6.7 FL Neutrophils (%) (Auto) 85.7 % Lymphocytes (%) (Auto) 9.5 % Monocytes (%) (Auto) 3.9 % Eosinophils (%) (Auto) 0.3 % Basophils (%) (Auto) 0.6 % Neutrophils # (Auto) 13.7 TH/MM3 Lymphocytes # (Auto) 1.5 TH/MM3 Monocytes # (Auto) 0.6 TH/MM3 Eosinophils # (Auto) 0.0 TH/MM3 Basophils # (Auto) 0.1 TH/MM3 CBC Comment DIFF FINAL Differential Comment Lactic Acid Level 2.0 mmol/L Urine Color YELLOW Urine Turbidity HAZY Urine pH 7.5 Urine Specific [place] 1.016 Urine Protein TRACE mg/dL Urine Glucose (UA) NEG mg/dL Urine Ketones 10 mg/dL Urine Occult Blood TRACE Urine Nitrite NEG Urine Bilirubin NEG Urine Urobilinogen LESS THAN 2.0 MG/DL Urine Leukocyte Esterase NEG Urine RBC 3 /hpf Urine WBC 1 /hpf Urine Squamous Epithelial Cells 4 /hpf Urine Mucus FEW /lpf Microscopic Urinalysis Comment CULT NOT INDICATED Urine Opiates Screen POS Urine Barbiturates Screen NEG Urine Amphetamines Screen NEG Urine Benzodiazepines Screen NEG Urine Cocaine Screen NEG Urine Cannabinoids Screen POS Blood Urea Nitrogen 8 MG/DL Creatinine 0.55 MG/DL Random Glucose 103 MG/DL Total Protein 7.9 GM/DL Albumin 4.2 GM/DL Calcium Level 8.8 MG/DL Alkaline Phosphatase 54 U/L Aspartate Amino Transf (AST/SGOT) 21 U/L Alanine Aminotransferase (ALT/SGPT) 18 U/L Total Bilirubin 0.3 MG/DL Sodium Level 142 MEQ/L Potassium Level 3.4 MEQ/L Chloride Level 111 MEQ/L Carbon Dioxide Level 24.4 MEQ/L Anion Gap 7 MEQ/L Estimat Glomerular Filtration Rate 147 ML/MIN Lipase 82 U/L MDM Medical Decision Making Medical Screen Exam Complete: Yes Emergency Medical Condition: Yes Medical Record Reviewed: Yes (The patient has been seen here on many previous occasions with abdominal pain. She has had numerous previous CTs. A couple of the CTs mentioned the possibility of colitis but many of the CTs are basically negative or show a fibroid uterus.) Differential Diagnosis Differential diagnosis of abdominal pain includes but is not limited to gastritis, pancreatitis, hepatitis, gastroenteritis, constipation, urinary retention, peptic ulcer disease, diverticulitis or appendicitis Narrative Course Patient presents for diffuse abdominal pain which began acutely this morning. An IV will be established and she will be given fluids, IV morphine and IV Zofran. Routine abdominal pain labs are ordered as is a CT of her abdomen and pelvis. The patient would not lie still for CT. She is noted to be bouncing around on the bed. She obviously does not have an acute abdomen. CBC Diagram 02/19/18 11:31 Lactic acid 2.0 UA is negative for infection Tox screen is positive for opiates and marijuana She continues to moan loudly. I will try a dose of Ativan and Haldol. Last Impressions Abdomen/Pelvis CT 02/19/18 1118 Signed Impressions: Service Date/Time: Monday, February 19, 2018 12:47 - CONCLUSION: I do not see inflammatory changes or ascites is patient history of colitis. Lack of oral contrast makes detection of subtle abnormalities difficult. There are no ovarian cysts evident. Tyler Dai MD FACR I have attempted to pull her up in [employer] but I cannot currently log in the [employer] because of their change in software. She is finally sleeping soundly following the Haldol and Ativan. Her vital signs are stable. I have not found a reversible calls of her abdominal pain and vomiting. She will be discharged home. Diagnosis Primary Impression: Abdominal pain Qualified Codes: R10.84 - Generalized abdominal pain Additional Impression: Nausea & vomiting Qualified Codes: R11.14 - Bilious vomiting Patient Instructions: Abdominal Pain (ED), Acute Nausea and Vomiting (DC), General Instructions Med/Other Pt SpecificInfo: Prescription(s) given Scripts Ondansetron (Zofran) 4 Mg Tab 4 MG PO Q6HR Y for NAUSEA OR VOMITING, #6 TAB 0 Refills Prov: Lisa Anderson MD 02/19/18 Disposition: 01 DISCHARGE HOME Condition: Stable Lisa Anderson MD Feb 19, 2018 11:28
[2018-02-19] MEDS ORDERED: ONDANSETRON HCL 4 MG/2 ML VIAL IVP ONE (11:30)
[2018-02-19] MEDS ORDERED: SODIUM CHLORIDE 0.9% FLUSH 10 ML FLUSH IV FLUSH PRN (11:30)
[2018-02-19] MEDS ORDERED: MORPHINE SULFATE 4 MG/ML INJ IV PUSH ONE (11:30)
[2018-02-19 11:38] VITALS: BP 148/89; PULSE 77; RESP 20; O2SAT 100
[2018-02-19 11:43] LABS: AUTOMATED NEUTROPHIL # 13.7 TH/MM3 (1.8-7.7); BASOPHIL # 0.1 TH/MM3 (0-0.2); BASOPHIL % 0.6 % (0.0-2.0); EOSINOPHIL % 0.3 % (0.0-4.0); HEMATOCRIT 38.2 % (35.0-46.0); HEMOGLOBIN 12.4 GM/DL (11.6-15.3); LYMPH % 9.5 % (9.0-44.0); LYMPHOCYTE # 1.5 TH/MM3 (1.0-4.8); MEAN CELL VOLUME 81.9 FL (80.0-100.0); MEAN CORPUSCULAR HEMOGLOBIN 26.5 PG (27.0-34.0); MEAN CORPUSCULAR HGB CONC 32.4 % (32.0-36.0); MEAN PLATELET VOLUME 6.7 FL (7.0-11.0); MONO % 3.9 % (0.0-8.0); MONOCYTE # 0.6 TH/MM3 (0-0.9); NEUT % 85.7 % (16.0-70.0); PLATELET COUNT 341 TH/MM3 (150-450); RED BLOOD COUNT 4.67 MIL/MM3 (4.00-5.30); RED CELL DISTRIBUTION WIDTH 15.2 % (11.6-17.2)
[2018-02-19 12:37] LABS: BILIRUBIN, URINE NEG (NEG); BLOOD, URINE TRACE (NEG); GLUCOSE,URINE NEG (NEG); KETONE, URINE 10 mg/dL (NEG); MUCUS URINE FEW /lpf (OCC); NITRITE,URINE NEG (NEG); PH, URINE 7.5 (5.0-8.5); SQUAMOUS EPITHELIAL CELL URINE 4 /hpf (0-5); URINE COLOR YELLOW (YELLW/STRAW); URINE LEUKOCYTE ESTERASE NEG (NEG)
[2018-02-19] MEDS ORDERED: IOHEXOL 350 MG/ML 10 ML VIAL (for RAD DIAG) IVCONTRAST ONE (12:59)
[2018-02-19] MEDS ORDERED: HALOPERIDOL LACTATE 5 MG/ML AMP IM ONE (13:00)
[2018-02-19] MEDS ORDERED: LORazepam 2 MG/ML VIAL IM ONE (13:00)
[2018-02-19 13:01] LABS: ALBUMIN 4.2 GM/DL (3.4-5.0); ALT (GPT) 18 U/L (10-53); AST (GOT) 21 U/L (15-37); BICARBONATE 24.4 MEQ/L (21.0-32.0); BLOOD UREA NITROGEN 8 MG/DL (7-18); CALCIUM 8.8 MG/DL (8.5-10.1); CHLORIDE 111 MEQ/L (98-107); CREATININE 0.55 MG/DL (0.50-1.00); GLOMERULAR FILTRATION RATE 147 ML/MIN (>89); GLUCOSE,RANDOM 103 MG/DL (74-106); SODIUM (NA) 142 MEQ/L (136-145)
[2018-02-19 13:03] LABS: ALKALINE PHOSPHATASE 54 U/L (45-117); TOTAL BILIRUBIN ADULT 0.3 MG/DL (0.2-1.0); TOTAL PROTEIN 7.9 GM/DL (6.4-8.2)
--- NOTE | 2018-02-19 13:07 | RADRPT ---
EXAM DATE/TIME: 02/19/2018 12:47 [facility] COMPARISON: CT ABDOMEN & PELVIS W CONTRAST, November 03, 2017, 17:10. INDICATIONS : Abdominal pain IV CONTRAST: 72 cc Omnipaque 350 (iohexol) IV ORAL CONTRAST: No oral contrast ingested. RADIATION DOSE: 6.6 CTDIvol (mGy) MEDICAL HISTORY : Colitis, ovarian cyst SURGICAL HISTORY : None. ENCOUNTER: Initial ACUITY: 1 day PAIN SCALE: 5/10 LOCATION: Abdomen TECHNIQUE: Volumetric scanning of the abdomen and pelvis was performed. Using automated exposure control and ad justment of the mA and/or kV according to patient size, radiation dose was kept as low as reasonably achievable to obtain optimal diagnostic quality images. DICOM format image data is available electro nically for review and comparison. FINDINGS: The lower lungs are clear. The liver contains very small cysts left lobe. There is mild inhomogeneity adjacent the falciform ligament nonspecific. Spleen and pancreas unremarkable Symmetrical renal function No ascites or adenopathy No inflammatory changes Somewhat prominent homogeneous uterus without free fluid in the pelvis Mild degenerative changes in the lumbar spine. CONCLUSION: I do not see inflammatory changes or ascites is patient history of colitis. Lack of oral contrast makes detection of subtle abnormalities difficult. There are no ovarian cysts evident. Tyler Dai MD FACR on February 19, 2018 at 13:02 Board Certified Radiologist. This report was verified electronically.
[2018-02-19 13:13] VITALS: BP 144/73; PULSE 61; RESP 18; O2SAT 100
[2018-02-19 13:30] VITALS: BP 117/73; PULSE 86; RESP 16; O2SAT 100
[2018-02-19 14:15] VITALS: BP 105/63; PULSE 84; RESP 18; O2SAT 100
[2018-02-19] MEDS ORDERED: ZOFR4TAB PO (14:25)
== END 2018-02-19 15:11 | disposition home or self-care (01) ==
LOC: NEPD 10:50
DX: R10.84 Generalized abdominal pain (principal); R11.14 Bilious vomiting; F17.210 Nicotine dependence, cigarettes, uncomplicated; F12.90 Cannabis use, unspecified, uncomplicated
CPT/HCPCS: 74177; 80053; 80307; 81001; 83605; 83690; 84703; 85025; 96361; 96372; 96374; 96375; 99284; J1630; J2060; J2270; J2405; J7030; Q9967

== ENCOUNTER 2018-03-28 15:18 | Emergency (ER) | payer SELFPAY ==
[~2018-03-28] VITALS: Ht 162.6 cm; Wt 55.0 kg
[~2018-03-28 15:18] MED LIST changes: -ZOFR4TAB3 SL
[2018-03-28 15:36] VITALS: BP 142/82; PULSE 70; RESP 20; TEMP 97.6; O2SAT 99
[2018-03-28] MEDS ORDERED: SODIUM CHLOR 0.9% 1000 ML INJ 1,000 ML IV SCH (16:15)
[2018-03-28] MEDS ORDERED: PROCHLORPERAZINE INJ 10 MG/2 ML VIAL IV PUSH ONE (16:15)
[2018-03-28] MEDS ORDERED: MORPHINE SULFATE 4 MG/ML INJ IV PUSH ONE (16:15)
[2018-03-28] MEDS ORDERED: SODIUM CHLORIDE 0.9% FLUSH 10 ML FLUSH IV FLUSH PRN (16:15)
[2018-03-28 18:00] LABS: ALBUMIN 4.2 GM/DL (3.4-5.0); ALT (GPT) 13 U/L (10-53); AST (GOT) 17 U/L (15-37); BICARBONATE 25.1 MEQ/L (21.0-32.0); BLOOD UREA NITROGEN 6 MG/DL (7-18); CALCIUM 8.4 MG/DL (8.5-10.1); CHLORIDE 107 MEQ/L (98-107); CREATININE 0.61 MG/DL (0.50-1.00); GLOMERULAR FILTRATION RATE 131 ML/MIN (>89); GLUCOSE,RANDOM 100 MG/DL (74-106); INTERNATIONAL NORMALIZED RATIO 1.1 RATIO; PROTHROMBIN TIME - PATIENT 11.2 SEC (9.8-11.6); SODIUM (NA) 141 MEQ/L (136-145)
[2018-03-28 18:02] LABS: ALKALINE PHOSPHATASE 61 U/L (45-117); TOTAL BILIRUBIN ADULT 0.3 MG/DL (0.2-1.0); TOTAL PROTEIN 8.1 GM/DL (6.4-8.2)
[2018-03-28 18:08] LABS: AUTOMATED NEUTROPHIL # 12.2 TH/MM3 (1.8-7.7); BASOPHIL # 0.1 TH/MM3 (0-0.2); BASOPHIL % 0.9 % (0.0-2.0); EOSINOPHIL % 0.2 % (0.0-4.0); HEMATOCRIT 37.7 % (35.0-46.0); HEMOGLOBIN 12.4 GM/DL (11.6-15.3); LYMPH % 7.5 % (9.0-44.0); MEAN CELL VOLUME 81.2 FL (80.0-100.0); MEAN CORPUSCULAR HEMOGLOBIN 26.7 PG (27.0-34.0); MEAN CORPUSCULAR HGB CONC 32.9 % (32.0-36.0); MEAN PLATELET VOLUME 6.8 FL (7.0-11.0); MONO % 3.2 % (0.0-8.0); MONOCYTE # 0.4 TH/MM3 (0-0.9); NEUT % 88.2 % (16.0-70.0); PLATELET COUNT 341 TH/MM3 (150-450); RED BLOOD COUNT 4.64 MIL/MM3 (4.00-5.30); RED CELL DISTRIBUTION WIDTH 15.5 % (11.6-17.2); WHITE BLOOD COUNT 13.8 TH/MM3 (4.0-11.0)
--- NOTE | 2018-03-28 18:39 | PD ---
HPI Chief Complaint: Abdominal Pain Time Seen by Provider: 15:55 Travel History International Travel<30 days: No Contact w/Intl Traveler<30days: No Traveled to known affect area: No History of Present Illness HPI Patient is a 43-year-old female who comes in complaining of abdominal pain with nausea and vomiting. She says this started this morning. She says she has a history of ulcerative colitis, however colonoscopy performed here 2 years ago was normal. She has not followed up with gastroenterology as an outpatient. She says she feels very dehydrated and she is unable to keep anything down. She says the pain in her abdomen is all over. She denies any dysuria. She is feeling cold, but has not had any fever at home. Severity is mild to moderate. PFSH Past Medical History Blood Disorders: No Anxiety: No Depression: No Cancer: No Cardiovascular Problems: No Diminished Hearing: No Gastrointestinal Disorders: Yes (colitis) GERD: No Gout: Yes Genitourinary: No Hiatal Hernia: No Immune Disorder: No Musculoskeletal: No Neurologic: No Psychiatric: No Reproductive: Yes (ovarian cyst) Respiratory: No Ulcer: No Influenza Vaccination: No ?: Not : 0 Para: 0 Past Surgical History Surgical History: No Previous Surgery Other Surgery: No Social History Alcohol Use: No Tobacco Use: Yes (PPD smoker) Substance Use: Yes (marijuana PT DENIES) Allergies-Medications (Allergen,Severity, Reaction): Coded Allergies: No Known Allergies (Verified Adverse Reaction, Unknown, 03/28/18) Reported Meds & Prescriptions Reported Meds & Active Scripts Active Zofran (Ondansetron HCl) 4 Mg Tab 4 Mg PO Q6HR PRN Zofran (Ondansetron HCl) 4 Mg Tab 4 Mg PO Q8HR PRN 5 Days Reported Potassium Chloride ER (Potassium Chloride) 10 Meq Cap 1 Tab PO DAILY Review of Systems Except as stated in HPI: all other systems reviewed are Neg General / Constitutional: Positive: Chills, No: Fever HENT: No: Headaches, Lightheadedness Cardiovascular: No: Chest Pain or Discomfort Respiratory: No: Shortness of Breath Gastrointestinal: Positive: Nausea, Vomiting, Abdominal Pain Genitourinary: No: Dysuria Skin: No Rash, No Change in Pigmentation Neurologic: No: Weakness, Dizziness Physical Exam Narrative GENERAL: Awake and alert, no acute distress. SKIN: Focused skin assessment warm/dry. HEAD: Atraumatic. Normocephalic. EYES: Pupils equal and round. No scleral icterus. ENT: Mucous membranes pink and moist. NECK: Trachea midline. No JVD. CARDIOVASCULAR: Regular rate and rhythm. No murmur appreciated. RESPIRATORY: No accessory muscle use. Clear to auscultation. Breath sounds equal bilaterally. GASTROINTESTINAL: Abdomen soft, nondistended. Mild diffuse tenderness, however when distracted she does not act as if in pain on exam. No rebound or guarding. MUSCULOSKELETAL: No obvious deformities. No clubbing. No cyanosis. No edema. NEUROLOGICAL: Awake and alert. No obvious cranial nerve deficits. Motor grossly within normal limits. Normal speech. PSYCHIATRIC: Appropriate mood and affect; insight and judgment normal. Data Data Last Documented VS Vital Signs Date Time Temp Pulse Resp B/P (MAP) Pulse Ox O2 Delivery O2 Flow Rate FiO2 03/28/18 15:36 97.6 70 20 142/82 (102) 99 Orders Orders Complete Blood Count With Diff (03/28/18 16:15) Comprehensive Metabolic Panel (03/28/18 16:15) Prothrombin Time / Inr (Pt) (03/28/18 16:15) Act Partial Throm Time (Ptt) (03/28/18 16:15) Iv Access Insert/Monitor (03/28/18 16:15) Ecg Monitoring (03/28/18 16:15) Oximetry (03/28/18 16:15) Morphine Inj (Morphine Inj) (03/28/18 16:15) Sodium Chlor 0.9% 1000 Ml Inj (Ns 1000 M (03/28/18 16:15) Sodium Chloride 0.9% Flush (Ns Flush) (03/28/18 16:15) Ed Urine Pregnancytest Poc (03/28/18 16:15) Prochlorperazine Inj (Compazine Inj) (03/28/18 16:15) Lactic Acid (03/28/18 16:15) Labs Laboratory Tests Test 03/28/18 17:22 White Blood Count 13.8 TH/MM3 Red Blood Count 4.64 MIL/MM3 Hemoglobin 12.4 GM/DL Hematocrit 37.7 % Mean Corpuscular Volume 81.2 FL Mean Corpuscular Hemoglobin 26.7 PG Mean Corpuscular Hemoglobin Concent 32.9 % Red Cell Distribution Width 15.5 % Platelet Count 341 TH/MM3 Mean Platelet Volume 6.8 FL Neutrophils (%) (Auto) 88.2 % Lymphocytes (%) (Auto) 7.5 % Monocytes (%) (Auto) 3.2 % Eosinophils (%) (Auto) 0.2 % Basophils (%) (Auto) 0.9 % Neutrophils # (Auto) 12.2 TH/MM3 Lymphocytes # (Auto) 1.0 TH/MM3 Monocytes # (Auto) 0.4 TH/MM3 Eosinophils # (Auto) 0.0 TH/MM3 Basophils # (Auto) 0.1 TH/MM3 CBC Comment DIFF FINAL Differential Comment Prothrombin Time 11.2 SEC Prothromb Time International Ratio 1.1 RATIO Activated Partial Thromboplast Time 27.2 SEC Blood Urea Nitrogen 6 MG/DL Creatinine 0.61 MG/DL Random Glucose 100 MG/DL Total Protein 8.1 GM/DL Albumin 4.2 GM/DL Calcium Level 8.4 MG/DL Alkaline Phosphatase 61 U/L Aspartate Amino Transf (AST/SGOT) 17 U/L Alanine Aminotransferase (ALT/SGPT) 13 U/L Total Bilirubin 0.3 MG/DL Sodium Level 141 MEQ/L Potassium Level 3.7 MEQ/L Chloride Level 107 MEQ/L Carbon Dioxide Level 25.1 MEQ/L Anion Gap 9 MEQ/L Estimat Glomerular Filtration Rate 131 ML/MIN Lactic Acid Level 1.9 mmol/L MDM Medical Decision Making Medical Screen Exam Complete: Yes Emergency Medical Condition: Yes Medical Record Reviewed: Yes Differential Diagnosis Dehydration versus gastritis versus electrolyte abnormality Narrative Course Patient is a 43-year-old female who comes in complaining of abdominal pain with nausea and vomiting. Exam shows mild IV established, labs sent. Labs show mild elevation white blood cell count, this is similar to previous. There are no other abnormalities. Patient had a CT scan done February 19 that showed no acute abnormalities, I do not feel that repeating the CAT scan today will be beneficial to her. She is given IV fluids, pain medicine, anti-emetics. Patient is now able to tolerate PO. she will be discharged with Zofran. Advised to drink plenty of fluids. Advised to follow up with GI. Advised to return to the ED as needed for any worsening symptoms. Diagnosis Primary Impression: Abdominal pain Qualified Codes: R10.84 - Generalized abdominal pain Additional Impression: Nausea & vomiting Qualified Codes: R11.2 - Nausea with vomiting, unspecified Referrals: Ed Reyna MD call for appointment Patient Instructions: Abdominal Pain (ED), Acute Nausea and Vomiting (ED), General Instructions Additional Instructions: Follow up with GI. Take Zofran as needed for nausea. Drink plenty of fluids. Eat a bland diet. Return to the ED as needed for any worsening symptoms. Scripts Ondansetron Odt (Zofran Odt) 4 Mg Tab 4 MG SL Q6HR Y for Nausea/Vomiting, #12 TAB 0 Refills Prov: Merry Lynn MD 03/28/18 Disposition: DISCHARGE HOME Condition: Stable Merry Lynn MD March 28, 2018 18:38
[2018-03-28] MEDS ORDERED: ZOFR4TAB3 SL (18:55)
[2018-03-28 19:00] VITALS: BP 127/90; PULSE 80; RESP 14; O2SAT 100
== END 2018-03-28 19:42 | disposition home or self-care (01) ==
LOC: NEPC 15:18
DX: R10.84 Generalized abdominal pain (principal); R11.2 Nausea with vomiting, unspecified; F17.210 Nicotine dependence, cigarettes, uncomplicated
CPT/HCPCS: 80053; 83605; 84703; 85025; 85610; 85730; 96374; 96375; 99284; J0780; J2270; J7030